=== PATIENT | male | born 1945 | race Caucasian/White ===

== ENCOUNTER 2017-01-07 10:09 | Emergency (ER) | payer MEDICARE ==
[~2017-01-07] VITALS: Ht 175.3 cm; Wt 76.8 kg
[~2017-01-07 10:09] MED LIST: ALPR0.25 PO; ASPI81TA28 PO; CARV6.25 PO; NTRGSL/4 UT; OMEG10007 PO; PANT40TA PO; PRAV20TA PO
[2017-01-07 10:15] VITALS: TEMP 36.8; Ht 175.3 cm; Wt 76.8 kg
[2017-01-07 10:24] VITALS: O2SAT 96
[2017-01-07 10:40] LABS: MEAN CELL VOLUME 88.1 fL (80-100); MEAN CORPUSCULAR HEMOGLOBIN 31.4 pg (25-34); MEAN CORPUSCULAR HGB CONC 35.6 g/dl (32-36); MEAN PLATELET VOLUME 8.6 fL (7.4-10.4); PLATELET COUNT 254 K/uL (130-400); RED BLOOD COUNT 5.45 M/uL (4.7-6.1); WHITE BLOOD COUNT 10.25 K/uL (4.8-10.8)
--- NOTE | 2017-01-07 10:45 | DIAGNOSTIC IMAGING REPORT ---
SINGLE VIEW CHEST CLINICAL HISTORY: Atypical chest pain. FINDINGS: An AP, portable, upright chest radiograph is compared to study dated 03/07/2014. The cardiomediastinal silhouette is unremarkable. There is mild atherosclerotic calcification of the thoracic aorta. Emphysema and chronic interstitial thickening is similar to previous. No airspace consolidation, pleural effusion, or pneumothorax is seen. Apical scarring is observed. The skeletal structures are osteopenic. The bony thorax is grossly intact. A benign-appearing sclerotic lesion in the left proximal humerus is only partially visualized and likely unchanged from 2014. IMPRESSION: Emphysematous change with no active disease in the chest. Electronically signed by: Omi Kiran M.D. 01/07/2017 10:44 AM Dictated Date/Time: 01/07/2017 10:42 AM
[2017-01-07 10:49] LABS: PARTIAL THROMBOPLASTIN RATIO 1.1
[2017-01-07 11:02] LABS: BUN/CREATININE RATIO 13.7 (10-20); CALCIUM 8.5 mg/dl (8.5-10.1); CREATININE 0.93 mg/dl (0.60-1.40); POTASSIUM 4.4 mmol/L (3.5-5.1)
[2017-01-07 11:07] LABS: ALB/GLOB RATIO 1.1 (0.9-2); CKMB/CK RATIO 0.8 (0-3.0)
[2017-01-07 12:09] VITALS: BP 141/72; PULSE 57; O2SAT 97
--- NOTE | 2017-01-07 12:52 | EMERGENCY ROOM VISIT NOTE ---
History Report prepared by Stefan: Denita Graf Under the Supervision of: Dr. Jerilyn Whyte D.O. First contact with patient: 10:56 Chief Complaint: CHEST PAIN Stated Complaint: CHEST PAIN,ARM PAIN Nursing Triage Summary: L upper chest pain since late last night, radiating to Lue, lasted all night waxing and waning, pt states this am pain radiates down to L fingers, c/o diaphoresis last night, hx stents in the past History of Present Illness The patient is a 71 year old male who presents to the Emergency Room with complaints of resolved left sided chest pain starting this morning. Around 11 pm last night, the patient started having left arm pain radiating to the left hand. This morning, the patient awoke from sleep due to the onset of chest pain and worsened left arm pain. He describes the chest pain to be a burning pain. The patient states that his chest pain has now resolved. He took a baby aspirin this morning with relief. He currently only complains of a dull pain in his left arm. He has a history of cardiac disease. He had a stent placed on 12/22/05 in circumflex and another stent placed on 12/13/11 in RCA. His last stress test was about 6 months ago which was normal. The patient is a former smoker. The patient denies fevers, chills, shortness of breath, abdominal pain, or any other complaints. Source of History: patient Onset: this morning Position: chest (left) Quality: burning Timing: resolved Modifying Factors (Relieving): other (baby aspirin with relief) Associated Symptoms: No SOB, No abdominal pain, No chills, No fevers Review of Systems See HPI for pertinent positives & negatives. A total of 10 systems reviewed and were otherwise negative. Past Medical & Surgical Medical Problems: (1) Benign hypertension (2) Esophageal Reflux (3) Hypercholesterolemia (4) Percutaneous transluminal coronary angioplasty Family History Patient reports no known family medical history. Social History Smoking Status: Former Smoker Alcohol Use: none Marital Status: Housing Status: lives with family Current/Historical Medications Scheduled Aspirin (Aspirin Ec), 81 MG PO DAILY Carvedilol (Coreg), 6.25 MG PO BID Fish Oil ([place]-3), 1 CAP PO DAILY Nitroglycerin (Nitrostat), 0.4 MG UT PRN Pantoprazole (Protonix), 40 MG PO DAILY Pravastatin (Pravachol ), 20 MG PO DAILY Scheduled PRN Alprazolam (Xanax), 0.25 MG PO DAILY PRN for Anxiety Allergies Coded Allergies: Vancomycin (Verified Allergy, Intermediate, RASH, 01/07/17) Physical Exam Vital Signs Date Time Temp Pulse Resp B/P Pulse Ox O2 Delivery O2 Flow Rate FiO2 01/07/17 12:09 57 18 141/72 97 01/07/17 11:02 59 17 131/86 96 Room Air 01/07/17 10:31 64 01/07/17 10:24 60 145/90 96 Room Air 01/07/17 10:24 96 Room Air 01/07/17 10:20 95 Room Air 01/07/17 10:15 95 Room Air 01/07/17 10:15 36.8 64 18 159/101 95 Room Air Physical Exam HEENT: Head - normocephalic and atraumatic Pupils are equal, round, and reactive to light. Extraocular eye muscles are intact, and sclera are anicteric. Nose - moist nasal mucosa without discharge. Mouth - moist buccal mucosa. Oropharynx is nonerythematous and there is no tonsillar exudate or edema noted. Neck: Supple; no JVD, nuchal rigidity, cervical lymphadenopathy. Heart: Regular rate and rhythm. There is a normal S1 and S2 with no murmurs, clicks, or gallops appreciated. Lungs: Clear to auscultation bilaterally with no wheezes, rales, or rhonchi. Abdomen: Soft, completely nontender, nondistended, with good bowel sounds. There are no palpable pulsatile masses or hepatosplenomegaly. There is no guarding, rigidity, or rebound noted. Extremities: No evidence of cyanosis, clubbing, or edema. There are easily palpable peripheral pulses. Skin: warm and dry with good turgor and no rashes. Medical Decision & Procedures ER Provider Diagnostic Interpretation: X-ray results as stated below per interpretation by me and the radiologist: SINGLE VIEW CHEST CLINICAL HISTORY: Atypical chest pain. FINDINGS: An AP, portable, upright chest radiograph is compared to study dated 03/07/2014. The cardiomediastinal silhouette is unremarkable. There is mild atherosclerotic calcification of the thoracic aorta. Emphysema and chronic interstitial thickening is similar to previous. No airspace consolidation, pleural effusion, or pneumothorax is seen. Apical scarring is observed. The skeletal structures are osteopenic. The bony thorax is grossly intact. A benign-appearing sclerotic lesion in the left proximal humerus is only partially visualized and likely unchanged from 2013. IMPRESSION: Emphysematous change with no active disease in the chest. Electronically signed by: Omi Kiran M.D. 01/07/2017 10:44 AM Dictated Date/Time: 01/07/2017 10:42 AM Laboratory Results 01/07/17 10:20 01/07/17 10:20 Test 01/07/17 10:20 01/07/17 10:24 Red Blood Count 5.45 M/uL (4.7-6.1) Mean Corpuscular Volume 88.1 fL (80-100) Mean Corpuscular Hemoglobin 31.4 pg (25-34) Mean Corpuscular Hemoglobin Concent 35.6 g/dl (32-36) RDW Standard Deviation 44.3 fL (36.4-46.3) RDW Coefficient of Variation 13.8 % (11.5-14.5) Mean Platelet Volume 8.6 fL (7.4-10.4) Prothrombin Time 11.0 SECONDS (9.0-12.0) Prothromb Time International Ratio 1.0 (0.9-1.1) Activated Partial Thromboplast Time 28.0 SECONDS (21.0-31.0) Partial Thromboplastin Ratio 1.1 Anion Gap 7.0 mmol/L (3-11) Est Creatinine Clear Calc Drug Dose 73.9 ml/min Estimated GFR () 96.1 Estimated GFR (Non- 82.9 BUN/Creatinine Ratio 13.7 (10-20) Calcium Level 8.5 mg/dl (8.5-10.1) Total Bilirubin 0.9 mg/dl (0.2-1) Aspartate Amino Transf (AST/SGOT) 20 U/L (15-37) Alanine Aminotransferase (ALT/SGPT) 29 U/L (12-78) Alkaline Phosphatase 63 U/L (45-117) Total Creatine Kinase 83 U/L (39-308) Creatine Kinase MB 0.7 ng/ml (0.5-3.6) Creatine Kinase MB Ratio 0.8 (0-3.0) Total Protein 7.0 gm/dl (6.4-8.2) Albumin 3.7 gm/dl (3.4-5.0) Globulin 3.3 gm/dl (2.5-4.0) Albumin/Globulin Ratio 1.1 (0.9-2) Bedside Troponin I 0.000 ng/ml (0-0.045) Laboratory results per my review. ECG Indication: chest pain Rate (beats per minute): 62 Rhythm: normal sinus Findings: no acute ischemic change, no ectopy Comparison ECG Date: September 12, 2013 Change: PVCs have now resolved otherwise no change when compared to September 12, 2013. ED Course 1056: Past medical records reviewed. The patient was evaluated in room A11B. A complete history and physical exam was performed. A 12-lead EKG was obtained as described above. An IV lock was initiated and labs were drawn as above. 1128: I discussed the patient's case with Dr. Trammell, manager eligibility with [facility]. He reviewed the cath report. In 2011, the patient's stented circumflex was patent. The patient's RCA was 80% blocked and a stent was placed. The patient's LAD was patent. He confirmed that the patient had a stress test 6 months ago which was normal. He felt comfortable with him being discharged and following up with him next week. 1157: Upon reevaluation, the patient is resting comfortably. I discussed findings and results with the patient. I also discussed Dr. Trammell's recommendations. He verbalized agreement of the treatment plan. He was discharged home. Medical Decision This is a 71 year old male who presents to the Emergency Room with a chief complaint of chest pain. Differential diagnosis includes but is not limited to cardiac ischemia, GERD, pleurisy, cervical radiculopathy. His labs showed normal white count, normal H&H, normal renal function and LFTs, negative cardiac enzymes, normal coags, and normal glucose. The patient was symptom-free at the time of discharge. He has negative cardiac enzymes and a normal EKG after having discomfort in his left arm and chest. The patient was asked to follow-up with his manager eligibility next week. He was told to return here to the emergency department symptoms worsened. Consults Time Called: 112 Consulting Physician: Dr. Trammell, manager eligibility with [facility] Returned Call: [phone] I discussed the patient's case with Dr. Trammell, manager eligibility with [facility]. He reviewed the cath report. In 2012, the patient's circumflex was patent. The patient's RCA was 80% blocked and a stent was placed. The patient's LAD was patent. He confirmed that the patient had a stress test 6 months ago which was normal. He felt comfortable with being discharged and following up with him next week. Impression Primary Impression: Atypical chest pain Scribe Attestation The scribe's documentation has been prepared under my direction and personally reviewed by me in its entirety. I confirm that the note above accurately reflects all work, treatment, procedures, and medical decision making performed by me. Departure Information Dispostion Home / Self-Care Referrals Idris Ontiveros M.D. (PCP) Forms HOME CARE DOCUMENTATION FORM, IMPORTANT VISIT INFORMATION Patient Instructions ED Chest Pain Atypical Unkn Cause, My [facility] Additional Instructions No strenuous activity. Follow up with Dr. Trammell next week Return to the ER if symptoms worsen.
== END 2017-01-07 12:11 | disposition home or self-care (01) ==
LOC: C.EDB 10:10 → C.EDA 12:11
DX: R07.89 Other chest pain (principal); I10 Essential (primary) hypertension; K21.9 Gastro-esophageal reflux disease without esophagitis; E78.00 Pure hypercholesterolemia, unspecified; Z87.891 Personal history of nicotine dependence; Z79.82 Long term (current) use of aspirin; Z79.899 Other long term (current) drug therapy

== ENCOUNTER → 2017-02-21 | Outpatient (CLI) | payer MEDICARE ==
--- NOTE | 2017-02-21 12:12 | DIAGNOSTIC IMAGING REPORT ---
CHEST 2 VIEWS ROUTINE CLINICAL HISTORY: ABNORMAL NUCLEAR STRESS TEST chest pain COMPARISON STUDY: 01/07/2017 FINDINGS: The bones soft tissues and hemidiaphragms are normal. The cardiomediastinal silhouette is normal. The lungs are clear. The pulmonary vasculature is normal. IMPRESSION: Negative chest. Electronically signed by: Chalino Harrison M.D. 02/21/2017 12:11 PM Dictated Date/Time: 02/21/2017 12:08 PM
--- NOTE | 2017-02-21 12:29 | DIAGNOSTIC IMAGING REPORT ---
KUB CLINICAL HISTORY: Ureteral stone COMPARISON STUDY: 10/03/2015 FINDINGS: There is no pathologic bowel dilatation. No urinary tract calculi are visualized on conventional radiographic imaging IMPRESSION: Unremarkable supine abdomen Electronically signed by: Nathen Bahena M.D. 02/21/2017 12:28 PM Dictated Date/Time: 02/21/2017 12:27 PM
[2017-02-21 13:32] LABS: PARTIAL THROMBOPLASTIN RATIO 1.1; PROTHROMBIN TIME (PATIENT) 11.2 SECONDS (9.0-12.0)
[2017-02-21 13:37] LABS: BASO % 0.9 %; BASO ABS # 0.08 K/uL (0-0.2); COMPLETE YES; EOS % 2.3 %; HEMATOCRIT 45.8 % (42-52); IG% 0.2 %; LYMPH % 36.7 %; LYMPH ABS # 3.09 K/uL (1.2-3.4); MEAN CORPUSCULAR HEMOGLOBIN 30.3 pg (25-34); MEAN CORPUSCULAR HGB CONC 33.6 g/dl (32-36); MEAN PLATELET VOLUME 8.7 fL (7.4-10.4); MONO % 7.6 %; NEUT % 52.3 %; PLATELET COUNT 264 K/uL (130-400); RED BLOOD COUNT 5.09 M/uL (4.7-6.1); WHITE BLOOD COUNT 8.43 K/uL (4.8-10.8)
[2017-02-21 13:46] LABS: BLOOD UREA NITROGEN 13 mg/dl (7-18); BUN/CREATININE RATIO 17.6 (10-20); CARBON DIOXIDE 25 mmol/L (21-32); CHLORIDE 109 mmol/L (98-107); CREATININE 0.75 mg/dl (0.60-1.40); GLUCOSE 102 mg/dl (70-99); POTASSIUM 4.3 mmol/L (3.5-5.1); SODIUM 143 mmol/L (136-145)
[2017-02-21 13:53] LABS: BLOOD UREA NITROGEN 12 mg/dl (7-18); BUN/CREATININE RATIO 15.6 (10-20); CREATININE 0.79 mg/dl (0.60-1.40)
[2017-02-21 13:57] LABS: PROSTATE SPECIFIC ANTIGEN 0.769 ng/ml (0.000-4.000)
[2017-02-21 13:59] LABS: CALCIUM 9.2 mg/dl (8.5-10.1)
== END | disposition home or self-care (01) ==
LOC: C.RADBC 10:59
PROVIDERS: ATTEND Urology
DX: N20.1 Calculus of ureter (principal); R94.39 Abnormal result of other cardiovascular function study; I25.119 Atherosclerotic heart disease of native coronary artery with unspecified angina pectoris; R06.02 Shortness of breath; Z12.5 Encounter for screening for malignant neoplasm of prostate; R93.8 Abnormal findings on diagnostic imaging of other specified body structures

== ENCOUNTER → 2018-02-13 | Outpatient (CLI) | payer MEDICARE ==
[2018-02-13 13:35] LABS: BASO % 1.1 %; BASO ABS # 0.09 K/uL (0-0.2); EOS % 4.4 %; EOS ABS # 0.37 K/uL (0-0.5); HEMATOCRIT 48.1 % (42-52); HEMOGLOBIN 16.5 g/dL (14.0-18.0); IG# 0.04 K/uL (0.00-0.02); LYMPH % 33.1 %; LYMPH ABS # 2.76 K/uL (1.2-3.4); MEAN CELL VOLUME 89.4 fL (80-100); MEAN CORPUSCULAR HEMOGLOBIN 30.7 pg (25-34); MEAN CORPUSCULAR HGB CONC 34.3 g/dl (32-36); MEAN PLATELET VOLUME 8.8 fL (7.4-10.4); MONO % 8.5 %; MONO ABS # 0.71 K/uL (0.11-0.59); NEUT % 52.4 %; NEUT ABS # 4.38 K/uL (1.4-6.5); PLATELET COUNT 260 K/uL (130-400); RED CELL DISTRIBUTION WIDTH SD 45.7 fL (36.4-46.3); WHITE BLOOD COUNT 8.35 K/uL (4.8-10.8)
[2018-02-13 14:00] LABS: ALBUMIN 3.6 gm/dl (3.4-5.0); ALT/SGPT 28 U/L (12-78); AST/SGOT 22 U/L (15-37); BLOOD UREA NITROGEN 13 mg/dl (7-18); CALCIUM 8.6 mg/dl (8.5-10.1); CARBON DIOXIDE 29 mmol/L (21-32); CHOLESTEROL 123 mg/dl (0-200); CREATININE 0.93 mg/dl (0.60-1.40); GLUCOSE 95 mg/dl (70-99); POTASSIUM 4.4 mmol/L (3.5-5.1); SODIUM 142 mmol/L (136-145)
[2018-02-13 14:10] LABS: ALKALINE PHOSPHATASE 60 U/L (45-117); LDL CHOLESTEROL CALCULATED 50 mg/dl; TOTAL PROTEIN 7.1 gm/dl (6.4-8.2)
== END | disposition home or self-care (01) ==
LOC: C.LABPBG 10:39
PROVIDERS: ATTEND Internal Medicine Geriatric Medicine
DX: I25.10 Atherosclerotic heart disease of native coronary artery without angina pectoris (principal); G47.00 Insomnia, unspecified; F41.9 Anxiety disorder, unspecified; G25.81 Restless legs syndrome; N20.1 Calculus of ureter; R53.83 Other fatigue

== ENCOUNTER 2023-10-25 15:00 | Observation (INO) ==
--- NOTE | 2023-10-25 15:14 | ED Triage Note ---
Date of Service October 25, 2023 Provider in Triage Author: Radha Trejo History of Present Illness This patient was briefly evaluated while in triage. An abbreviated physical exam was performed. This patient is a 78-year-old Male who presents to the ED for evaluation of chest pain. with radiation into his arm and shoulder blade. Pain started about 3-4 hours ago while he was getting out of bed. Nothing makes the pain better or worse. He does have a cardiac stent. He denies any shortness of breath or vomiting. Physical Exam VITALS: Vitals are noted on the nurse's note and reviewed by myself. GENERAL: This is a 78-year-old male, in no acute distress, nondiaphoretic, well- developed well-nourished. HEART: Regular rate and rhythm without murmurs gallops or rubs. LUNGS: Clear to auscultation bilaterally without wheezes, rales or rhonchi. No retractions or accessory muscle use. NEURO: Patient was alert and oriented to person place and time. Initial orders for labs and / or imaging were placed and patient was placed in the waiting area until a bed is available. Please see further documentation for the full ED course. MDM / Impression Impression Impression: Chest pain
[2023-10-25 15:42] LABS: Basophils # (auto) 0.12 K/uL (0.00-0.20); Basophils % (auto) 1.2 %; Hematocrit (blood only) 48.6 % (42.0-52.0); Hemoglobin 16.7 g/dl (14.0-18.0); Immature Granulocytes # (auto) 0.07 K/uL (0.01-0.20); Immature Granulocytes % (auto) 0.7 %; Lymphocytes # (auto) 2.21 K/uL (1.20-3.40); Lymphocytes % (auto) 22.3 %; Mean Corpuscular Hemoglobin 30.5 pg (25.0-34.0); Mean Corpuscular Hgb Conc 34.4 g/dL (32.0-36.0); Mean Corpuscular Volume 88.7 fL (80.0-100.0); Mean Platelet Volume 8.3 fL (9.4-12.4); Monocytes # (auto) 0.75 K/uL (0.11-0.59); Monocytes % (auto) 7.6 %; Neutrophils # (auto) 6.35 K/uL (1.40-6.50); Neutrophils % (auto) 64.2 %; Platelet Count 281 K/uL (130-400); RDW Coefficient of Variation 13.2 % (11.5-14.5); RDW Standard Deviation 42.8 fL (36.4-46.3); Red Blood Count 5.48 M/uL (4.70-6.10)
[2023-10-25 15:55] LABS: Alanine Aminotransferase 14 U/L (7-52); Albumin Globulin Ratio 1.4 (0.9-2); Albumin Level 4.3 gm/dl (3.4-5.0); Alkaline Phosphatase 64 U/L (34-104); Anion Gap 6 (3-11); Aspartate Aminotransferase 19 U/L (13-39); BUN Creatinine Ratio 17.2 (10-20); Bilirubin,Total 0.6 mg/dl (0.2-1.0); Blood Urea Nitrogen 15 mg/dl (6-23); Calcium 9.3 mg/dl (8.6-10.3); Carbon Dioxide 29 mmol/L (21-32); Chloride 105 mmol/L (98-107); Est GFR (African American) 96.5 ml/min; Est GFR (Non-African American) 83.2 ml/min; Glucose 123 mg/dl (70-99(Fasting)); Potassium 4.3 mmol/L (3.5-5.1); Sodium 140 mmol/L (136-145); Total Protein 7.3 gm/dl (6.0-8.3)
[2023-10-25 16:02] LABS: Troponin I High Sensitivity 5.9 pg/ml (0-20)
--- NOTE | 2023-10-25 16:08 | XRay Report ---
XR chest 1V portable CLINICAL HISTORY: Chest pain, nonspecific. COMPARISON STUDY: Chest CT March 16, 2022. Chest radiograph February 16, 2023. FINDINGS: Right shoulder arthroplasty is incidentally noted. There is no pneumothorax or pleural effu polo. There is no consolidation to suggest pneumonia. There is no evidence for pulmonary edema. Cardi omediastinal silhouette is normal. IMPRESSION: No acute cardiopulmonary findings. ACT 112: Negative or not required by law. Electronically signed by: Srini Corey M.D. 10/25/2023 4:07 PM
[2023-10-25] MEDS ORDERED: ASPIRIN 81 MG CHEW PO STA (18:11)
--- NOTE | 2023-10-25 18:19 | Emergency Department Note ---
History of Present Illness General Chief complaint: Chest Pain Stated complaint: CHEST PAIN, LT ARM/SHOULDER ACHES Time Seen by Provider: 10/25/23 18:14 Source: patient, RN notes reviewed and old records reviewed (09/26/23-cardiology office visit for follow-up) Mode of arrival: ambulatory Limitations: no limitations History of Present Illness Maximum Pain Intensity: 4 This patient is 78-year-old male who comes in after having left-sided chest pain which started around 10:00 is in his left arm and shoulder blade it is dull but occasionally gets sharper ache. He takes baby aspirin today but is not taking it yet denies shortness of breath there is somewhat pleuritic when he takes a deep breath he says no fall or trauma slight nausea no blood or melena stool no headache neck pain or stiffness. Has history of stents but has been a long time is not sure if this feels like his previous cardiac disease or not. He is on no blood thinners. No history of PE. No pain or swelling his legs. No GI symptoms. Home Medications Medication Instructions Recorded Confirmed Type acetaminophen 500 mg tablet 500 mg PO Q6H PRN Pain 01/06/20 10/25/23 History (Tylenol Extra Strength) carvedilol 3.125 mg tablet 3.125 mg PO BID 01/06/20 10/25/23 History aspirin 81 mg tablet,delayed 81 mg PO PM 01/29/21 10/25/23 History release cholecalciferol (vitamin D3) 50 50 mcg PO QAM 01/29/21 10/25/23 History mcg (2,000 unit) tablet (Vitamin D3) ferrous sulfate 325 mg (65 mg 325 mg PO Q OTHER DAY 02/08/23 10/25/23 History iron) tablet Oxygen Home #1 ea 02/23/23 09/28/23 Rx atorvastatin 40 mg tablet 40 mg PO QPM #90 tabs 03/22/23 10/25/23 Rx pantoprazole 40 mg tablet,delayed 40 mg PO BID #180 tabs 07/22/23 10/25/23 Rx release galcanezumab-gnlm 300 mg/3 mL (100 300 mg subcut MONTHLY 08/15/23 10/25/23 History mg/mL x 3) subcutaneous syringe (Emgality) nitroglycerin 0.4 mg sublingual 0.4 mg sublingual Q5M PRN chest 08/15/23 10/25/23 Rx tablet pain #30 tabs alprazolam 0.25 mg tablet 0.25 mg PO DAILY PRN Anxiety 10/25/23 10/25/23 History amlodipine 2.5 mg tablet 2.5 mg PO QPM 10/25/23 10/25/23 History Allergies Allergy/AdvReac Type Severity Reaction Status Date / Time sumatriptan [From Imitrex] Allergy Intermediate chest pain Verified 10/25/23 20:58 vancomycin Allergy Mild rash Verified 10/25/23 20:58 morphine AdvReac Intermediate vomiting Verified 10/25/23 20:58 sucralfate [From Carafate] AdvReac Intermediate myalgia Verified 10/25/23 20:58 Past Med/Surg History Medical History Ischemic cardiomyopathy Now with preserved LV systolic function (EF 55% in 04/2021) Occipital neuralgia Cluster headache syndrome Lamictal for management, follows with pain management and neuro CAD (coronary artery disease) S/p cardiac stents (LCX- 2005, RCA- 2011) Residual 60-70% proximal LAD stenosis per cardio records FOLLOWS WITH DR. VOSS History of kidney stones Anxiety Esophageal reflux controlled, stable, denies any issues laying flat History of gastric ulcer noted per records/patient denies Hypercholesterolemia Restless legs syndrome HTN (hypertension) well controlled, stable Surgical History Status post replacement of right shoulder joint 10/2021 History of esophagogastroduodenoscopy (EGD) History of tooth extraction History of cataract surgery BILAT History of heart artery stent > [facility] History of tonsillectomy S/P rotator cuff repair (11/29/19) R shoulder arthrsocopy, rotator cuff repair History of cardiac cath SEVERAL > 2 STENTS TOTAL FROM S/P cystoscopy with ureteral stent placement 09/2011 placement, 10/2011 removal stent Hx of colonoscopy Family History Mother , 61 Cancer Sister Heart disease Pacemaker Cancer metastatic at age 65 Father , 55 Coronary heart disease Myocardial infarction Brother Coronary heart disease Hx of CABG, Onset Age: 58 Family history of diabetes mellitus Denies family history of Ovarian cancer Prostate cancer Breast cancer Colorectal cancer Social History Smoking Status: Former smoker Tobacco Type: Cigarettes Second Hand Exposure: No; Do You Dip or Chew Tobacco: No; Hx Alcohol Use: No Hx Substance Use: No Preferred Language: Yakut Communication Ability: Effective Visual Impairment: No Limitations Hearing Ability: Normal Pulverizer Feeder Required: No Beliefs That Will Affect Care: None marital status: Current Living Situation: Spouse current occupational status: retired Feels Safe at Home: Yes Childhood Exposure to Second-Hand Smoke: No Diet: regular Diet Comment: regular caffeine: Yes (coffee) during the past year weight has: remained stable Dental Care, Regularly: Yes Physical Activity Frequency: Daily Seatbelt Use: always Sunscreen Use: Yes Assistive Devices: Glasses Review of Systems A total of 10 systems reviewed and were otherwise negative Physical Exam Vital Signs Vital Signs - 24 hr 10/25/23 15:11 10/25/23 20:13 10/25/23 20:14 Temperature 36.5 C Temperature Source Temporal Artery Scan Pulse Rate 72 62 Pulse Rate [Apical] 64 Pulse Rhythm Regular Pulse Strength Normal Respiratory Rate 20 20 Respiratory Effort / Characteristics Non-Labored Spontaneous Non-Labored Spontaneous Respiratory Depth Normal Normal Respiratory Pattern Regular Regular Blood Pressure 169/93 H Blood Pressure [Left Arm] 178/96 H Blood Pressure Mean 118 Blood Pressure Mean [Left Arm] 123 Blood Pressure Position Sitting Blood Pressure Position [Left Arm] Sitting Pulse Oximetry 96 99 Pulse Oximetry [Right Hand] Oxygen Delivery Method Room Air Room Air Oxygen Delivery Method [Right Hand] Sepsis Recent Fever Within 48 Hours No Sepsis New/Unexplained Change in Mental Status No Sepsis Action Taken by Nursing No Action Required 10/25/23 21:00 10/25/23 21:00 10/25/23 21:00 Temperature Temperature Source Pulse Rate Pulse Rate [Apical] 60 Pulse Rhythm Pulse Strength Respiratory Rate 18 Respiratory Effort / Characteristics Respiratory Depth Respiratory Pattern Blood Pressure Blood Pressure [Left Arm] 159/101 H Blood Pressure Mean Blood Pressure Mean [Left Arm] 120 Blood Pressure Position Blood Pressure Position [Left Arm] Pulse Oximetry 97 97 Pulse Oximetry [Right Hand] 93 Oxygen Delivery Method Room Air Room Air Oxygen Delivery Method [Right Hand] Room Air Sepsis Recent Fever Within 48 Hours Sepsis New/Unexplained Change in Mental Status Sepsis Action Taken by Nursing General: Well developed well nourished older male who appears in no acute distress, breathing comfortably on room air. Normal speech HEENT: Normal cephalic atraumatic. Pupils are equal round and reactive to light. Extraocular movements are intact. Oropharynx is pink with moist mucous membranes. No swelling of the mouth lips or tongue. Neck: Supple with a midline trachea. No meningeal signs or stiffness, no JVD or bruits. No Stridor. Chest: Clear to auscultation bilaterally. No wheezes or rhonchi. No increased work of breathing. Heart: Regular rate and rhythm without murmurs or gallops. Abdomen: Soft nontender, nondistended without rebound guarding or rigidity. Extremities: No cyanosis clubbing or edema. No calf tenderness or assymetry Spine/Back. Non tender to palpation. No CVA tenderness Skin: Good turgor without rashes. Neurologic exam: Cranial nerves two through 12 are intact. Motor and sensation are intact and symmetrical throughout. Course Administered Medications Discontinued Medications Aspirin (Aspirin 81 Mg Chew) 324 mg PO NOW STA Stop: 10/25/23 18:12 Last Admin: 10/25/23 18:39 Dose: 324 mg Documented By: MT Medical Decision Making Differential Diagnosis Acute coronary syndrome, arrhythmia, PE, pneumothorax, musculoskeletal, GERD, anxiety, aortic Medical Records Attestation: I reviewed the patient's medical records. Home Medications Current Medication List: was personally reviewed by me Laboratory Data Attestation: I reviewed the patient's lab results. 10/25/23 15:19 10/25/23 15:19 Lab Results 10/25/23 10/25/23 Range/Units 15:19 18:46 WBC 9.90 (4.8-10.8) K/ul RBC 5.48 (4.70-6.10) M/uL Hgb 16.7 (14.0-18.0) g/dl Hct 48.6 (42.0-52.0) % MCV 88.7 (80.0-100.0) fL MCH 30.5 (25.0-34.0) pg MCHC 34.4 (32.0-36.0) g/dL RDW Std Deviation 42.8 (36.4-46.3) fL RDW Coeff of Mraiela 13.2 (11.5-14.5) % Plt Count 281 (130-400) K/uL MPV 8.3 L (9.4-12.4) fL Immature Gran % (Auto) 0.7 % Neut % (Auto) 64.2 % Lymph % (Auto) 22.3 % Bryan % (Auto) 7.6 % Eos % (Auto) 4.0 % Baso % (Auto) 1.2 % Neut # (Auto) 6.35 (1.40-6.50) K/uL Lymph # (Auto) 2.21 (1.20-3.40) K/uL Bryan # (Auto) 0.75 H (0.11-0.59) K/uL Eos # (Auto) 0.40 (0.00-0.50) K/uL Baso # (Auto) 0.12 (0.00-0.20) K/uL Immature Gran # (Auto) 0.07 (0.01-0.20) K/uL D-Dimer 320 (0-500) ug/L FEU Sodium 140 (136-145) mmol/L Potassium 4.3 (3.5-5.1) mmol/L Chloride 105 (98-107) mmol/L Carbon Dioxide 29 (21-32) mmol/L Anion Gap 6 (3-11) BUN 15 (6-23) mg/dl Creatinine 0.87 (0.6-1.4) mg/dl Est Cr Clr Drug Dosing Not Reportable Est GFR ( Amer) 96.5 ml/min Est GFR (Non-Af Amer) 83.2 ml/min BUN/Creatinine Ratio 17.2 (10-20) Glucose 123 H (70-99(Fasting)) mg/dl Calcium 9.3 (8.6-10.3) mg/dl Total Bilirubin 0.6 (0.2-1.0) mg/dl AST 19 (13-39) U/L ALT 14 (7-52) U/L Alkaline Phosphatase 64 (34-104) U/L Troponin I High Sens 5.9 5.9 (0-20) pg/ml Total Protein 7.3 (6.0-8.3) gm/dl Albumin 4.3 (3.4-5.0) gm/dl Globulin 3.0 (2.5-4.0) gm/dl Albumin/Globulin Ratio 1.4 (0.9-2) Imaging Data Attestation: I personally reviewed and interpreted this imaging study as follows: My Impression: Chest x-rayno acute infiltrate, failure, pneumothorax seen upon my evaluation Radiologist's Impression: Chest X-Ray 10/25/23 15:14 XR chest 1V portable CLINICAL HISTORY: Chest pain, nonspecific. COMPARISON STUDY: Chest CT March 16, 2022. Chest radiograph February 16, 2023. FINDINGS: Right shoulder arthroplasty is incidentally noted. There is no pneumothorax or pleural effusion. There is no consolidation to suggest pneumonia. There is no evidence for pulmonary edema. Cardiomediastinal silhouette is normal. IMPRESSION: No acute cardiopulmonary findings. ACT 112: Negative or not required by law. Electronically signed by: Srini Corey M.D. 10/25/2023 4:07 PM ECG Data Attestation: I personally reviewed and interpreted this ECG as follows: Indication: + chest pain Rate (beats per minute): 62 Rhythm: + normal sinus ECG Intervals/blocks: + Normal QRS, + Normal QT and + Normal NC ECG Novi: + Normal ECG ST segments: + Normal ST segments ECG Findings: no PACs or no PVCs Comparison ECG Date: from (07/01/21) Change: no significant change Additional Comments: EKG #2: Sinus bradycardia rate of 60, no acute ischemic changes compared EKG #1. MDM Narrative This patient is a 78-year-old male comes in with chest pain he does have a strong cardiac history I did see him in the C pod subwait at which point his initial workup was already back. He has not taken aspirin today so I did give him 324 mg chewable his symptoms are somewhat pleuritic. he is not sure if they feel like previous cardiac disease. his initial EKG shows no ischemic changes or ectopy. His initial troponin is negative as well. Chest x-ray was unremarkable he has no significant electrolyte or metabolic abnormalities. Given his history, I did order second troponin and second EKG as well as a D-dimer. He says he feels okay at present. He was further reassessed. His second troponin was negative. Second EKG also shows no acute ischemic changes or ectopy or changes compared to the first. He is feeling well at this point. I am concerned that given his significant cardiac history that he should be observed in the hospital and have further inpatient treatment and evaluation. [facility] the ER for these measures Continuous cardiac monitoring: Orders placed in EMR for continuous monitor technician: Upon my evaluation, the patient noted to be in normal sinus rhythm the rate of 60 Impression & Plan Chest pain, CAD (coronary artery disease), terminal makeup operator (current) use of antithrombotics/antiplatelets, Hypertension Discharge Plan Visit Data Chief Complaint: Chest Pain Stated Complaint: CHEST PAIN, LT ARM/SHOULDER ACHES ED Provider: Jose Luis Frank Discharge Problem: Chest pain, CAD (coronary artery disease), correction (current) use of antithrombotics/antiplatelets, Hypertension Patient Disposition: Admitted As Inpatient Discharge Instructions Interventions: ED Discharge Assessment Last Done: 10/25/23 23:26 Discharge Problem: Chest pain Qualifiers: Chest pain type: precordial pain Qualified Code(s): R07.2 - Precordial pain CAD (coronary artery disease) Qualifiers: Coronary Disease-Associated Artery/Lesion type: unspecified vessel or lesion type [place] vs. transplanted heart: [place] heart Associated angina: without angina Qualified Code(s): I25.10 - Atherosclerotic heart disease of [place] coronary artery without angina pectoris Hypertension Qualifiers: Hypertension type: unspecified Qualified Code(s): I10 - Essential (primary) hypertension
[2023-10-25 19:21] LABS: D Dimer 320 ug/L FEU (0-500)
--- NOTE | 2023-10-25 20:44 | History & Physical Report ---
Date of Service October 25, 2023 Assessment & Plan (1) Chest pain: Plan: Patient with known cardiac history s/p stent RCA and circumflex - follows with Dr. Spencer. Cardiac cath 07/2017: patent RCA and circumflex stents; 60-70% proximal LAD lesion, and a 50% distal RCA lesion. ECHO 05/2023: normal LVEF, EF of 60%, dilated right ventricle with normal systolic function, dilated left atrium, dilated right atrium, mild to moderate mitral regurgitation, moderate tricuspid regurgitation, mildly elevated pulmonary artery pressures of 37 mmHg. Reproducible chest pain on examination. Troponin negative x 2. EKG without ischemic changes. Comorbidities well controlled with LDL < 60 05/2023 and BP well controlled outpatient. Most likely musculoskeletal in nature. Patient did have previous nerve cauterization for pain - may need follow up with pain management. Will trial Voltaren gel QID. Will continue to monitor with telemetry. AM Trop ordered. Would recommend stress ECHO while inpatient continuous cardiac monitoring AM Trop Nitro as needed s/p ASA load Trial Voltaren gel Stress ECHO while inpatient (2) HTN (hypertension): Plan: Well controlled outpatient. BP acceptable at this time. Continue home amlodipine and carvedilol. (3) Esophageal reflux: Plan: Well controlled with pantoprazole 40 mg BID. Continue while inpatient (4) CAD (coronary artery disease): Plan: See above Plan Code status: full DVT ppx: SCDs FENGI: Heart Healthy Dispo: Med Surg with Tele, if becomes unstable would escalate care to PCU/Tele History of Present Illness Chief Complaint: Chest Pain Primary Care Provider: Janice Mata, 78 y/o male with a PMHx of CAD s/p stents x2 RCA and circumflex presented with chest pain. Per chart review of [facility] records patient was seen by Dr. Spencer's office 09/26/23. Lipids and BP at goal at that time. ECHO 05/2023: normal LVEF, EF of 60%, dilated right ventricle with normal systolic function, dilated left atrium, dilated right atrium, mild to moderate mitral regurgitation, moderate tricuspid regurgitation, mildly elevated pulmonary artery pressures of 37 mmHg. Cardiac cath 07/2017: patent RCA and circumflex stents; 60-70% proximal LAD lesion, and a 50% distal RCA lesion. During my interview, patient is lying comfortably in bed. Reports symptoms started this morning with left pec soreness after waking from bed. He initially thought it was due to sleeping wrong. Patient began to experience intermittent sharp pains that felt deeper and some nausea, which prompted his presentation to the ED. Patient with reproducible chest pain. No SOB. No abdominal pain. No leg swelling. No change in bowel habits. No recent illnesses. In the ED Patient given ASA 324 mg x1. D-dimer negative. Trops negative x 2. EKG without signs of ischemic changes. CXR without signs of cardiomegaly. As patient is high risk for ACS admission for observation was requested. Allergies Allergy/AdvReac Type Severity Reaction Status Date / Time sumatriptan [From Imitrex] Allergy Intermediate chest pain Verified 10/25/23 20:58 vancomycin Allergy Mild rash Verified 10/25/23 20:58 morphine AdvReac Intermediate vomiting Verified 10/25/23 20:58 sucralfate [From Carafate] AdvReac Intermediate myalgia Verified 10/25/23 20:58 Home Medications Medication Instructions Recorded Confirmed Type acetaminophen 500 mg tablet 500 mg PO Q6H PRN Pain 01/06/20 10/25/23 History (Tylenol Extra Strength) carvedilol 3.125 mg tablet 3.125 mg PO BID 01/06/20 10/25/23 History aspirin 81 mg tablet,delayed 81 mg PO PM 01/29/21 10/25/23 History release cholecalciferol (vitamin D3) 50 50 mcg PO QAM 01/29/21 10/25/23 History mcg (2,000 unit) tablet (Vitamin D3) ferrous sulfate 325 mg (65 mg 325 mg PO Q OTHER DAY 02/08/23 10/25/23 History iron) tablet Oxygen Home #1 ea 02/23/23 09/28/23 Rx atorvastatin 40 mg tablet 40 mg PO QPM #90 tabs 03/22/23 10/25/23 Rx pantoprazole 40 mg tablet,delayed 40 mg PO BID #180 tabs 07/22/23 10/25/23 Rx release galcanezumab-gnlm 300 mg/3 mL (100 300 mg subcut MONTHLY 08/15/23 10/25/23 History mg/mL x 3) subcutaneous syringe (Emgality) nitroglycerin 0.4 mg sublingual 0.4 mg sublingual Q5M PRN chest 08/15/23 10/25/23 Rx tablet pain #30 tabs alprazolam 0.25 mg tablet 0.25 mg PO DAILY PRN Anxiety 10/25/23 10/25/23 History amlodipine 2.5 mg tablet 2.5 mg PO QPM 10/25/23 10/25/23 History Past Med/Surg History Medical History Ischemic cardiomyopathy Now with preserved LV systolic function (EF 55% in 04/2021) Occipital neuralgia Cluster headache syndrome Lamictal for management, follows with pain management and neuro CAD (coronary artery disease) S/p cardiac stents (LCX- 2005, RCA- 2011) Residual 60-70% proximal LAD stenosis per cardio records FOLLOWS WITH DR. SPENCER History of kidney stones Anxiety Esophageal reflux controlled, stable, denies any issues laying flat History of gastric ulcer noted per records/patient denies Hypercholesterolemia Restless legs syndrome HTN (hypertension) well controlled, stable Surgical History Status post replacement of right shoulder joint 10/2021 History of esophagogastroduodenoscopy (EGD) History of tooth extraction History of cataract surgery BILAT History of heart artery stent > [facility] History of tonsillectomy S/P rotator cuff repair (11/29/19) R shoulder arthrsocopy, rotator cuff repair History of cardiac cath SEVERAL > 2 STENTS TOTAL FROM S/P cystoscopy with ureteral stent placement 09/2011 placement, 10/2011 removal stent Hx of colonoscopy Family History Mother , 61 Cancer Sister Heart disease Pacemaker Cancer metastatic at age 65 Father , 55 Coronary heart disease Myocardial infarction Brother Coronary heart disease Hx of CABG, Onset Age: 58 Family history of diabetes mellitus Denies family history of Ovarian cancer Prostate cancer Breast cancer Colorectal cancer Social History Smoking Status: Former smoker Tobacco Type: Cigarettes Second Hand Exposure: No; Do You Dip or Chew Tobacco: No; Hx Alcohol Use: No Hx Substance Use: No Preferred Language: Lao Communication Ability: Effective Visual Impairment: No Limitations Hearing Ability: Normal Planer Tailer Required: No Beliefs That Will Affect Care: None marital status: Current Living Situation: Spouse current occupational status: retired Feels Safe at Home: Yes Childhood Exposure to Second-Hand Smoke: No Diet: regular Diet Comment: regular caffeine: Yes (coffee) during the past year weight has: remained stable Dental Care, Regularly: Yes Physical Activity Frequency: Daily Seatbelt Use: always Sunscreen Use: Yes Assistive Devices: Glasses Review of Systems 2 Review of Systems: See HPI Physical Exam 2 Physical Exam: Gen: well appearing male in NAD, resting comfortably HEENT: AT NC MMM Resp: CTAB no wheezing no increased work of breathing CV: RRR no m/r/g clinically well perfused, no LE edema Abd: soft, non-tender MSK: no obvious deformities, reproducible left pectoralis pain without erythema, warmth, or obvious injury, ?muscle spasm Psych: appropriate mood and affect Skin: no rashes or bruising noted Results & Data Results & Data Vital Signs (Past 12 Hours) Vital Signs Temp Pulse Pulse Resp BP BP Pulse Ox 10/25/23 20:14 64 20 178/96 H 99 10/25/23 15:11 36.5 C 72 20 169/93 H 96 O2 Del Method 10/25/23 20:14 Room Air 10/25/23 15:11 Room Air Laboratory Results 10/25/23 15:19 10/25/23 15:19 Diagnostic Findings Chest X-Ray 10/25/23 15:14 FINDINGS: Right shoulder arthroplasty is incidentally noted. There is no pneumothorax or pleural effusion. There is no consolidation to suggest pneumonia. There is no evidence for pulmonary edema. Cardiomediastinal silhouette is normal. IMPRESSION: No acute cardiopulmonary findings. Supervising Physician Co-Signing Physician Notes Attending addendum: I have physically seen this patient, have supervised the medical residents activities, and agree with the H&P unless as otherwise noted. Assessment and Plan: Chest pain/CAD/history of RCA stent/history of circumflex artery stent/60 to 70% LAD lesion- As noted on last cardiac catheterization 03/[address] Harp in [place] The patient will be admitted to telemetry for serial cardiac enzymes, serial EKG's, cardiac rhythm monitoring and a 2-D echocardiogram with Dopplers. Initial troponin and follow-up negative at 5.9 Continue amlodipine 2.5 mg daily, aspirin 81 mg daily, carvedilol 3.125 mg p.o. twice daily If workup negative, he should have a stress echocardiogram prior to discharge Hyperlipidemia- Continue atorvastatin 40 mg daily Check a fasting lipid panel and hemoglobin A1c GERD- Continue pantoprazole Resident Activity Tracking Resident Involvement: Resident Care Provided Care Provided: Adult [facility] Medicine
[2023-10-25] MEDS ORDERED: carvediloL 3.125 MG TAB PO ONE (21:37)
[2023-10-25] MEDS ORDERED: amLODIPine BESYLATE 5 MG TAB PO ONE (21:37)
[2023-10-25] MEDS ORDERED: ATORVASTATIN 40 MG TAB PO ONE (21:38)
[2023-10-25] MEDS ORDERED: PANTOprazole 40 MG TAB PO ONE (21:43)
[2023-10-25] MEDS ORDERED: POLYETHYLENE (MIRALAX) 17 GM PACK PO PRN (23:25)
[2023-10-25] MEDS ORDERED: ACETAMINOPHEN 500 MG TAB PO PRN (23:25)
[2023-10-25] MEDS ORDERED: ALPRAZolam 0.25 MG TABLET PO PRN (23:25)
[2023-10-25] MEDS ORDERED: ONDANSETRON INJ 2 MG/ML 2 ML VIAL IV PRN (23:25)
[2023-10-25] MEDS ORDERED: NITROGLYCERIN SL 0.4 MG/TAB TAB SL PRN (23:25)
[2023-10-26] MEDS: PANTOprazole 40 MG TAB PO SCH ×2 (00:59→08:52)
--- NOTE | 2023-10-26 01:00 | Billing Data ---
Date of Service October 26, 2023 Coding Level of Care Code 27133 INT INP/OBS CARE
[2023-10-26 04:57] LABS: Hematocrit (blood only) 45.2 % (42.0-52.0); Hemoglobin 15.9 g/dl (14.0-18.0); Mean Corpuscular Hemoglobin 30.2 pg (25.0-34.0); Mean Corpuscular Hgb Conc 35.2 g/dL (32.0-36.0); Mean Corpuscular Volume 85.8 fL (80.0-100.0); Mean Platelet Volume 8.2 fL (9.4-12.4); Platelet Count 248 K/uL (130-400); RDW Coefficient of Variation 13.2 % (11.5-14.5); RDW Standard Deviation 41.2 fL (36.4-46.3); Red Blood Count 5.27 M/uL (4.70-6.10); White Blood Count 11.88 K/ul (4.8-10.8)
[2023-10-26 05:04] LABS: BUN Creatinine Ratio 19.2 (10-20); Calcium 8.7 mg/dl (8.6-10.3); Est GFR (African American) 103.7 ml/min; Est GFR (Non-African American) 89.5 ml/min; Potassium 3.7 mmol/L (3.5-5.1)
[2023-10-26 05:11] LABS: Troponin I High Sensitivity 6.8 pg/ml (0-20)
[2023-10-26] MEDS ORDERED: carvediloL 3.125 MG TAB PO SCH (09:00)
[2023-10-26] MEDS ORDERED: DICLOFENAC SOD 1% GEL 100 GM TUBE EXT SCH (09:00)
--- NOTE | 2023-10-26 11:01 | Electrocardiogram Report ---
Test Reason : Blood Pressure : / mmHG Vent. Rate : 062 BPM Atrial Rate : 062 BPM P-R Int : 158 ms QRS Dur : 086 ms QT Int : 404 ms P-R-T Axes : 054 064 049 degrees QTc Int : 410 ms Normal sinus rhythm Normal ECG When compared with ECG of 01-JUL-2021 10:31, No significant change was found Confirmed by Marvin Frias ([id number]) on 10/26/2023 11:01:01 AM Referred By: REFERRED SELF Confirmed By:Marvin Frias
--- NOTE | 2023-10-26 11:01 | Electrocardiogram Report ---
Test Reason : Blood Pressure : / mmHG Vent. Rate : 059 BPM Atrial Rate : 059 BPM P-R Int : 160 ms QRS Dur : 084 ms QT Int : 406 ms P-R-T Axes : 060 066 049 degrees QTc Int : 401 ms Sinus bradycardia Otherwise normal ECG When compared with ECG of 25-OCT-2023 15:17, (unconfirmed) No significant change was found Confirmed by Marvin Frias ([id number]) on 10/26/2023 11:01:24 AM Referred By: REFERRED SELF Confirmed By:Marvin Frias
--- NOTE | 2023-10-26 11:56 | Discharge Summary ---
Date of Service October 26, 2023 Admission HPI Per Admitting Provider 78 y/o male with a PMHx of CAD s/p stents x2 RCA and circumflex presented with chest pain. Per chart review of [facility] records patient was seen by Dr. Spencer's office 09/26/23. Lipids and BP at goal at that time. ECHO 05/2023: normal LVEF, EF of 60%, dilated right ventricle with normal systolic function, dilated left atrium, dilated right atrium, mild to moderate mitral regurgitation, moderate tricuspid regurgitation, mildly elevated pulmonary artery pressures of 37 mmHg. Cardiac cath 07/2017: patent RCA and circumflex stents; 60-70% proximal LAD lesion, and a 50% distal RCA lesion. During my interview, patient is lying comfortably in bed. Reports symptoms started this morning with left pec soreness after waking from bed. He initially thought it was due to sleeping wrong. Patient began to experience intermittent sharp pains that felt deeper and some nausea, which prompted his presentation to the ED. Patient with reproducible chest pain. No SOB. No abdominal pain. No leg swelling. No change in bowel habits. No recent illnesses. In the ED Patient given ASA 324 mg x1. D-dimer negative. Trops negative x 2. EKG without signs of ischemic changes. CXR without signs of cardiomegaly. As patient is high risk for ACS admission for observation was requested. Discharge Data Allergies Allergy/AdvReac Type Severity Reaction Status Date / Time sumatriptan [From Imitrex] Allergy Intermediate chest pain Verified 10/25/23 20:58 vancomycin Allergy Mild rash Verified 10/25/23 20:58 morphine AdvReac Intermediate vomiting Verified 10/25/23 20:58 sucralfate [From Carafate] AdvReac Intermediate myalgia Verified 10/25/23 20:58 Consultations 10/25/23 21:03 ED Decision to Admit Stat Hospital Course (1) Chest pain: Patient with known cardiac history s/p stent RCA and circumflex - follows with Dr. Spencer. Cardiac cath 07/2017: patent RCA and circumflex stents; 60-70% proximal LAD lesion, and a 50% distal RCA lesion. ECHO 05/2023: normal LVEF, EF of 60%, dilated right ventricle with normal systol ic function, dilated left atrium, dilated right atrium, mild to moderate mitral regurgitation, moderate tricuspid regurgitation, mildly elevated pulmonary artery pressures of 37 mmHg. Reproducible chest pain on examination. Troponin negative x 2. EKG without ischemic changes. Comorbidities well controlled with LDL < 60 05/2023 and BP well controlled outpatient. Most likely musculoskeletal in nature. Patient did have previous nerve cauterization for pain - may need follow up with pain management. Will trial Voltaren gel QID. Will continue to monitor with telemetry. AM Trop ordered. Would recommend stress ECHO while inpatient continuous cardiac monitoring AM Trop Nitro as needed s/p ASA load Trial Voltaren gel Stress ECHO while inpatient (2) HTN (hypertension): Well controlled outpatient. BP acceptable at this time. Continue home amlodipine and carvedilol. (3) Esophageal reflux: Well controlled with pantoprazole 40 mg BID. Continue while inpatient (4) CAD (coronary artery disease): See above Plan Code status: full DVT ppx: SCDs FENGI: Heart Healthy Dispo: Med Surg with Tele, if becomes unstable would escalate care to PCU/Tele Discharge Plan Discharge Items Reason For Visit: CHEST PAIN Discharge Diagnosis: chest pain Activity: Resume your previous activity Non-emergency contact: Primary Care Provider Call non-emergency contact if: you have any medication questions Follow-up/Referrals: Janice Mata DO [Primary Care Provider] - Diet: Regular Addtl Attending Provider Instructions: You have been evaluated for chest pain. Thankfully, the results you were ordered puts you in a low risk for a heart attack We also ruled out other causes of chest pain that can be life threatening. Will recommend you followup with your PCP in 1-2 weeks. Pending Studies at Discharge: No Stand-Alone Forms: [facility], Smoking Cessation Medications and DC Order Prescriptions: Continued atorvastatin 40 mg tablet 40 mg PO QPM Qty: 90 3RF pantoprazole 40 mg tablet,delayed release (DR/EC) 40 mg PO BID Qty: 180 1RF (DME) Oxygen Home Liters Per Minute See Rx Instructions .Route Qty: 1 0RF Rx Instructions: 100% oxygen for up to 25 minutes at 15L/min with a non-rebreather mask ferrous sulfate 325 mg (65 mg iron) tablet 325 mg PO Q OTHER DAY Emgality Syringe 300 mg/3 mL (100 mg/mL x 3) syringe 300 mg subcut MONTHLY Rx Instructions: TAKES USUALLY ON THE 4TH OF THE MONTH. nitroglycerin 0.4 mg tablet, sublingual 0.4 mg SL Q5M PRN (Reason: chest pain) Qty: 30 3RF Patient Comments: HAVE NEVER USED acetaminophen [Tylenol Extra Strength] 500 mg Tablet 500 mg PO Q6H PRN (Reason: Pain) carvedilol 3.125 mg tablet 3.125 mg PO BID aspirin 81 mg Tablet,Delayed Release (Dr/Ec) 81 mg PO PM cholecalciferol (vitamin D3) [Vitamin D3] 50 mcg (2,000 unit) Tablet 50 mcg PO QAM amlodipine 2.5 mg tablet 2.5 mg PO QPM alprazolam 0.25 mg tablet 0.25 mg PO DAILY PRN (Reason: Anxiety) Admission Data Admit Date/Time: 10/25/23 21:14 Attending Provider: Oli Zuñiga Admit Provider: Esperanza Yan Primary Care Provider: Janice Mata Other Providers: Oli Zuñiga Coding Diagnoses Chest pain R07.2 Chest pain type: precordial pain HTN (hypertension) I10 Esophageal reflux K21.9 CAD (coronary artery disease) I25.10 Associated angina: without angina Coronary Disease-Associated Artery/Lesion type: unspecified vessel or lesion type [place] vs. transplanted heart: [place] [facility]
--- NOTE | 2023-10-26 12:32 | XCELERA ---
[id number]
[2023-10-26] MEDS ORDERED: ATORVASTATIN 40 MG TAB PO SCH (21:00)
[2023-10-26] MEDS ORDERED: ASPIRIN 81 MG ECTAB PO SCH (21:00)
[2023-10-26] MEDS ORDERED: amLODIPine BESYLATE 5 MG TAB PO SCH (21:00)
== END 2023-10-26 13:45 | disposition home or self-care (01) ==
LOC: EDINP 15:00 → ED 15:00 → EDINP 10-26 13:28

== ENCOUNTER 2025-06-05 17:00 | Inpatient (IN) ==
--- NOTE | 2025-06-05 17:17 | Emergency Department Note ---
Impression & Plan Non-ST elevation VT (NSTEMI) Admission ED Provider Note HPI: History obtained from patient. The patient is a 79-year-old gentleman with history of paroxysmal atrial fibrillation, currently on Xarelto, history of CAD status post multiple stents, presents the emergency department today with a chief complaint of chest pain. Patient states that he had a nerve ablation performed by pain management in his thoracic spine this past . Patient states he has had pain across the upper portion of his anterior chest since that procedure. Patient states that he was evaluated yesterday in the ED, he was ultimately discharged home following his ED workup including a negative CT angiogram of the chest. Patient states that his pain seemed to worsen last night at about 10:30 PM. Patient states he was contacted today by his PCP and told that Dr. Frias of cardiology had reviewed his EKG and he should come to the emergency room to be assessed. On arrival here to the ED the patient is alert, he is hemodynamically stable, he appears to be in no acute distress. He states he does have active pain across the top of his chest. ROS: - Per HPI Differential Diagnosis: Acute coronary syndrome, unstable angina, costochondritis, pleuritis, neuropathy, aortic dissection, pulmonary embolism, amongst other potential pathologies. *Outpatient medications and allergy history reviewed. PE: General: Alert HEENT: Normocephalic, trachea midline Eyes: Extraocular eye movement is intact, no scleral erythema Pulmonary: Clear to auscultation bilaterally, no wheezing Cardio: Regular rate and rhythm GI: Abdomen is soft to palpation : No suprapubic tenderness MSK: No evidence of trauma or malformation of the extremities, no edema Skin: No evidence of rash Neuro: Alert, no focal deficits Psychiatric: Cooperative INDEPENDENT INTERPRETATIONS: manager monitoring: (As interpreted by myself): - An order was placed for continuous cardiac monitoring - Patient was noted to be in sinus rhythm with a rate of 65 EKG: (As interpreted by myself): Rate: 64 Rhythm: Normal sinus rhythm Intervals: Within normal limits ST changes: No ST elevation, T wave inversions noted in leads III and aVF Time: 1708 EKG: (As interpreted by myself): Rate: 62 Rhythm: Normal sinus rhythm Intervals: Within normal limits ST changes: No ST elevation Time: 1822 Chest x-ray: (As interpreted by myself): No acute disease Interventions provided in ED: - IV morphine, IV Zofran, aspirin, heparin drip Medical Decision Making: Shortly after the patient arrived IV was established and lab work obtained, initial EKG obtained does not show any evidence of any ST elevation VT. Patient was given IV morphine and IV Zofran with good improvement in his pain. Lab work shows an uptrending white blood cell count of 23.58 (patient was noted to be on steroids). Hemoglobin is normal, platelet count is normal, CMP does not show any evidence of any critical findings. High-sensitivity troponin did result markedly elevated at 7155. On my reevaluation following this result the patient states his pain is much improved from previous. Repeat EKG was obtained that again does not show any evidence of any ST elevation VT. Chest x-ray does not show any evidence of any widened mediastinum or acute disease otherwise. Patient did have a CT angiogram of the chest yesterday to rule out dissection that was negative. Low suspicion for aortic dissection at this point. I suspect the patient likely had an VT last night as he states he had a severe episode of chest pain at about 10:30 PM. I discussed the patient's presentation with on-call [facility] cardiology, Dr. Chris, he does recommend initiation of heparin drip at this point as well as aspirin. Routine consult for cardiology was placed and they will plan to evaluate the patient tomorrow for cardiac catheterization. I discussed this plan with the patient, he is in agreement for admission. He is chest pain-free on my reassessment. Patient was made aware to immediately notify staff if he develops any new episodes of chest pain. Patient and his at the bedside were in agreement to this plan and the patient was placed for admission in stable condition. [facility] hospitalist service was consulted for admission. I was handed an EKG by the bedside RN at approximately 1857 that showed some new ST changes with elevation in aVR and ST depressions in leads II, aVF, V4, V5, and V6. Given this with the patient's active pain a heart alert was activated at this time. Patient was evaluated at the bedside by the on-call hospitalist, Dr. Zuñiga, as well as interventional cardiology, Dr. Faust. He was transported to the cardiac catheterization lab in stable condition for further care. Consultants/Discussions held with other healthcare providers: - Interventional cardiology, Dr. Faust - Cardiology, Dr. Chris - Hospitalist, Dr. Zuñiga Disposition discussion held by myself with: - Patient and spouse at bedside * CRITICAL CARE TIME: (45) minutes - Management of acute coronary syndrome requiring heart alert to be called, time spent is bedside, interpretation of diagnostic studies including multiple EKGs, discussion with other physicians and arrangement of transfer to the cardiac catheterization lab for emergent cardiac catheterization for acute ischemic changes on EKG. Diagnosis: 1. Acute coronary syndrome 2. Elevated high-sensitivity troponin, acute 3. History of coronary artery disease status post multiple stents Disposition: Admission Chalino Hallman DO Emergency Medicine Past Med/Surg History Problem List (Updated 06/05/25 @ 18:48 by Chalino Hallman DO) Non-ST elevation VT (NSTEMI) (Acute) Leukocytosis (Acute) Upper back pain (Acute) Chest pain (Acute) Paroxysmal atrial fibrillation Atrial fibrillation with controlled ventricular rate Chronic cluster headache Mitral regurgitation Stented coronary artery Myofascial pain syndrome of thoracic spine Cervical myofascial strain Occipital neuralgia of right side Allergic rhinitis Intercostal neuralgia Hypertension (Acute) 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 VOSS Anxiety Esophageal reflux controlled, stable, denies any issues laying flat Hypercholesterolemia Restless legs syndrome Medical History History of cardioversion Restless leg syndrome On anticoagulant therapy HTN (hypertension) Hypercholesterolemia Esophageal reflux Cervical myofascial strain CAD (coronary artery disease) Allergic rhinitis History of chest pain New onset atrial fibrillation Ischemic cardiomyopathy Occipital neuralgia Cluster headache syndrome History of kidney stones History of gastric ulcer Surgical History History of surgery Status post reverse arthroplasty of right shoulder (~10/2021) History of esophagogastroduodenoscopy (EGD) History of tooth extraction History of cataract surgery History of heart artery stent History of tonsillectomy S/P rotator cuff repair (11/29/19) History of cardiac cath S/P cystoscopy with ureteral stent placement Hx of colonoscopy Family History Mother Cancer Sister Heart disease Pacemaker Cancer Father Coronary heart disease Myocardial infarction Brother Family history of diabetes mellitus Coronary heart disease Hx of CABG, Onset Age: 58 Other No family history of adverse response to anesthesia Denies family history of Ovarian cancer Prostate cancer Breast cancer Colorectal cancer Social History Smoking Status: Never smoker Tobacco Type: Cigarettes Age Started Using Tobacco: 18; Age Quit Using Tobacco: 41; packs per day: 1; Second Hand Exposure: No; Do You Dip or Chew Tobacco: No (quit 30yrs ago); Hx Alcohol Use: No Hx Substance Use: No Preferred Language: Barbadian Communication Ability: Effective Visual Impairment: No Limitations Hearing Ability: Normal Surveillance Sensor Officer Required: No Beliefs That Will Affect Care: None marital status: Current Living Situation: Spouse current occupational status: retired Feels Safe at Home: Yes Childhood Exposure to Second-Hand Smoke: No Diet: regular Diet Comment: regular caffeine: Yes (coffee) during the past year weight has: remained stable Dental Care, Regularly: No Physical Activity Frequency: Daily Seatbelt Use: always Sunscreen Use: Yes Assistive Devices: Glasses Allergies Allergies Allergy/AdvReac Type Severity Reaction Status Date / Time sumatriptan [From Imitrex] Allergy Intermediate chest pain Verified 05/31/25 13:11 vancomycin Allergy Mild rash Verified 05/31/25 13:11 morphine AdvReac Intermediate vomiting Verified 05/31/25 13:11 sucralfate [From Carafate] AdvReac Intermediate myalgia Verified 05/31/25 13:11 Home Meds Home Medications Medication Instructions Recorded Confirmed acetaminophen 500 mg tablet 500 mg PO Q6H PRN Pain 01/06/20 06/05/25 (Tylenol Extra Strength) carvedilol 3.125 mg tablet 3.125 mg PO BID 01/06/20 06/05/25 aspirin 81 mg tablet,delayed 81 mg PO PM 01/29/21 06/05/25 release cholecalciferol (vitamin D3) 50 50 mcg PO QAM 01/29/21 06/05/25 mcg (2,000 unit) tablet (Vitamin D3) amlodipine 2.5 mg tablet 2.5 mg PO QPM 10/25/23 06/05/25 diclofenac sodium 3 % topical gel 1 applic topical BID PRN Pain 02/21/24 06/05/25 magnesium oxide 400 mg PO QAM 08/27/24 06/05/25 alprazolam 0.25 mg tablet 0.25 mg PO DAILY PRN Anxiety 06/05/25 06/05/25 rivaroxaban 20 mg tablet (Xarelto) 20 mg PO QDD 06/05/25 06/05/25 Previous Rx's Medication Instructions Recorded Oxygen Home #1 ea 02/23/23 nitroglycerin 0.4 mg sublingual 0.4 mg sublingual Q5M PRN chest 02/21/24 tablet pain #30 tabs pantoprazole 40 mg tablet,delayed 40 mg PO QPM #90 tabs 01/07/25 release atorvastatin 40 mg tablet 40 mg PO QPM #90 tabs 03/19/25 verapamil 120 mg 24 hr 120 mg PO DAILY 30 days #30 caps 04/09/25 capsule,extended release galcanezumab-gnlm 300 mg/3 mL (100 300 mg (3 mL) subcut .once a month 05/09/25 mg/mL x 3) subcutaneous syringe #3 mL (Emgality) prednisone 20 mg tablet 60 mg (3 x 20 mg) PO DAILY 4 days 06/04/25 #12 tabs Results & Data (ED) Vital Signs Vital Signs - 24 hr 06/05/25 17:01 06/05/25 17:01 06/05/25 17:07 Temperature 36.8 C Temperature Source Temporal Artery Scan Pulse Rate 66 Pulse Rate [Left] 65 Pulse Rate from SpO2 Sensor Pulse Rhythm [Left] Pulse Strength [Left] Respiratory Rate 16 15 Respiratory Effort / Characteristics Respiratory Depth Respiratory Pattern Blood Pressure 155/86 H Blood Pressure [Left Arm] 141/95 H Blood Pressure Mean 109 Blood Pressure Mean [Left Arm] 110 Blood Pressure Position [Left Arm] Pulse Oximetry 95 96 96 Oxygen Delivery Method Room Air Room Air Room Air Oxygen Flow Rate Sepsis Recent Fever Within 48 Hours No Sepsis New/Unexplained Change in Mental Status N/A Sepsis Action Taken by Nursing No Action Required 06/05/25 17:07 06/05/25 17:20 06/05/25 19:00 Temperature Temperature Source Pulse Rate 67 70 Pulse Rate [Left] Pulse Rate from SpO2 Sensor Pulse Rhythm [Left] Pulse Strength [Left] Respiratory Rate 16 Respiratory Effort / Characteristics Respiratory Depth Respiratory Pattern Blood Pressure 123/101 H Blood Pressure [Left Arm] Blood Pressure Mean 105 Blood Pressure Mean [Left Arm] Blood Pressure Position [Left Arm] Pulse Oximetry 96 Oxygen Delivery Method Room Air Oxygen Flow Rate Sepsis Recent Fever Within 48 Hours Sepsis New/Unexplained Change in Mental Status Sepsis Action Taken by Nursing 06/05/25 19:06 06/05/25 19:09 06/05/25 19:10 Temperature Temperature Source Pulse Rate 72 Pulse Rate [Left] Pulse Rate from SpO2 Sensor Pulse Rhythm [Left] Pulse Strength [Left] Respiratory Rate Respiratory Effort / Characteristics Respiratory Depth Respiratory Pattern Blood Pressure 161/89 H 146/84 H 134/67 Blood Pressure [Left Arm] Blood Pressure Mean 121 102 Blood Pressure Mean [Left Arm] Blood Pressure Position [Left Arm] Pulse Oximetry Oxygen Delivery Method Oxygen Flow Rate Sepsis Recent Fever Within 48 Hours Sepsis New/Unexplained Change in Mental Status Sepsis Action Taken by Nursing 06/05/25 19:10 06/05/25 19:15 06/05/25 19:15 Temperature Temperature Source Pulse Rate 68 70 66 Pulse Rate [Left] Pulse Rate from SpO2 Sensor 69 Pulse Rhythm [Left] Pulse Strength [Left] Respiratory Rate 18 18 19 Respiratory Effort / Characteristics Respiratory Depth Respiratory Pattern Blood Pressure 134/67 127/68 127/68 Blood Pressure [Left Arm] Blood Pressure Mean 104 87 91 Blood Pressure Mean [Left Arm] Blood Pressure Position [Left Arm] Pulse Oximetry 95 96 Oxygen Delivery Method Nasal Cannula Nasal Cannula Oxygen Flow Rate 2 2 Sepsis Recent Fever Within 48 Hours Sepsis New/Unexplained Change in Mental Status Sepsis Action Taken by Nursing 06/05/25 19:21 06/05/25 19:25 06/05/25 19:31 Temperature Temperature Source Pulse Rate 66 67 Pulse Rate [Left] 67 Pulse Rate from SpO2 Sensor Pulse Rhythm [Left] Regular Pulse Strength [Left] Normal Respiratory Rate 20 19 20 Respiratory Effort / Characteristics Non-Labored Spontaneous Respiratory Depth Normal Respiratory Pattern Regular Blood Pressure 133/77 124/77 Blood Pressure [Left Arm] 135/90 Blood Pressure Mean 98 96 Blood Pressure Mean [Left Arm] 105 Blood Pressure Position [Left Arm] Lying Pulse Oximetry 96 96 98 Oxygen Delivery Method Nasal Cannula Nasal Cannula Nasal Cannula Oxygen Flow Rate 2 2 2 Sepsis Recent Fever Within 48 Hours Sepsis New/Unexplained Change in Mental Status Sepsis Action Taken by Nursing 06/05/25 19:49 Temperature Temperature Source Pulse Rate Pulse Rate [Left] Pulse Rate from SpO2 Sensor Pulse Rhythm [Left] Pulse Strength [Left] Respiratory Rate Respiratory Effort / Characteristics Respiratory Depth Respiratory Pattern Blood Pressure Blood Pressure [Left Arm] Blood Pressure Mean Blood Pressure Mean [Left Arm] Blood Pressure Position [Left Arm] Pulse Oximetry Oxygen Delivery Method Nasal Cannula Oxygen Flow Rate 2 Sepsis Recent Fever Within 48 Hours Sepsis New/Unexplained Change in Mental Status Sepsis Action Taken by Nursing Laboratory Data 06/05/25 17:19 06/05/25 17:19 Lab Results 06/05/25 06/05/25 Range/Units 17:19 19:13 WBC 23.58 H (4.8-10.8) K/ul RBC 5.22 (4.70-6.10) M/uL Hgb 16.0 (14.0-18.0) g/dl Hct 45.4 (42.0-52.0) % MCV 87.0 (80.0-100.0) fL MCH 30.7 (25.0-34.0) pg MCHC 35.2 (32.0-36.0) g/dL RDW Std Deviation 43.2 (36.4-46.3) fL RDW Coeff of Mariela 13.6 (11.5-14.5) % Plt Count 307 (130-400) K/uL MPV 8.4 L (9.4-12.4) fL Immature Gran % (Auto) 2.3 % Neut % (Auto) 84.8 % Lymph % (Auto) 9.6 % Clay % (Auto) 3.1 % Eos % (Auto) 0.0 % Baso % (Auto) 0.2 % Neut # (Auto) 20.00 H (1.40-6.50) K/uL Lymph # (Auto) 2.26 (1.20-3.40) K/uL Clay # (Auto) 0.72 H (0.11-0.59) K/uL Eos # (Auto) 0.00 (0.00-0.50) K/uL Baso # (Auto) 0.05 (0.00-0.20) K/uL Immature Gran # (Auto) 0.55 H (0.01-0.20) K/uL PT 11.4 (9.0-12.0) Seconds INR 1.1 (0.9-1.1) APTT 26 (21-31) Seconds PTT Ratio 1.0 Sodium 138 (136-145) mmol/L Potassium 4.4 (3.5-5.1) mmol/L Chloride 105 (98-107) mmol/L Carbon Dioxide 25 (21-32) mmol/L Anion Gap 8 (3-11) BUN 27 H (6-23) mg/dl Creatinine 1.13 (0.6-1.4) mg/dl Est Cr Clr Drug Dosing Not Reportable eGFR 66.53 BUN/Creatinine Ratio 23.9 H (10-20) Glucose 140 H (70-99(Fasting)) mg/dl Calcium 9.3 (8.6-10.3) mg/dl Magnesium 2.1 (1.7-2.4) mg/dl Total Bilirubin 0.7 (0.2-1.0) mg/dl AST 51 H (13-39) U/L ALT 21 (7-52) U/L Alkaline Phosphatase 55 (34-104) U/L Troponin I High Sens 7155.2 H* D (0-20) pg/ml Total Protein 7.0 (6.0-8.3) gm/dl Albumin 4.1 (3.4-5.0) gm/dl Globulin 2.9 (2.5-4.0) gm/dl Albumin/Globulin Ratio 1.4 (0.9-2) Lipase 16 (11-82) U/L Procalcitonin 0.02 (0-0.5) ng/ml Administered Medications Heparin Sodium/Dextrose (Heparin 38998 Unit/500 Ml D5w) 25,000 units in 500 mls @ 17 mls/hr IV .Q24H [facility]; Protocol Stop: 07/05/25 18:44 Last Admin: 06/05/25 18:55 Dose: 850 units/hr, 17 mls/hr Documented By: ERIK Co-signed By: LUIGI Nitroglycerin (Nitroglycerin Sl 0.4 Mg/Tab Tab) 0.4 mg SL Q5M PRN PRN Reason: Chest Pain Stop: 07/05/25 19:05 Last Admin: 06/05/25 19:11 Dose: 0.4 mg Documented By: LUIGI Discontinued Medications Aspirin (Aspirin Chew 324 Mg) 324 mg PO NOW STA Stop: 06/05/25 18:17 Last Admin: 06/05/25 18:22 Dose: 324 mg Documented By: ERIK Heparin Sodium (Porcine) (Heparin Sod (Porcine) 1000 Unit/Ml) 4,000 units IV NOW ONE Stop: 06/05/25 19:01 Last Admin: 06/05/25 18:53 Dose: 4,000 units Documented By: ERIK Co-signed By: LUIGI Heparin Sodium/Dextrose (Heparin Iv Adult Wt-Based Low-Dose W/ Initial Bolus Protocol) 1 each IV NOW STA; Protocol Stop: 06/05/25 18:30 Last Admin: 06/05/25 19:12 Dose: Not Given Documented By: LUIGI Sodium Chloride (Nss) 1,000 mls @ 999 mls/hr IV .Q1H1M ONE Stop: 06/05/25 19:24 Last Admin: 06/05/25 18:37 Dose: 999 mls/hr Documented By: ERIK Metoprolol Tartrate (Metoprolol Tartrate 1 Mg/Ml Vial) Confirm Administered Dose 5 mg IV .STK-MED ONE Stop: 06/05/25 19:08 Last Increment: 06/05/25 19:10 Dose: 2.5 mg Documented By: LUIGI Metoprolol Tartrate (Metoprolol Tartrate 1 Mg/Ml Vial) 5 mg IV NOW STA Stop: 06/05/25 19:12 Last Admin: 06/05/25 19:12 Dose: Not Given Documented By: LUIGI Morphine Sulfate (Morphine Sulfate 4 Mg/Ml 1 Ml Carp\Vial) 4 mg IV NOW STA Stop: 06/05/25 17:24 Last Admin: 06/05/25 17:27 Dose: 4 mg Documented By: ERIK Morphine Sulfate (Morphine Sulfate 4 Mg/Ml 1 Ml Carp\Vial) 4 mg IV NOW STA Stop: 06/05/25 19:02 Last Admin: 06/05/25 19:01 Dose: 4 mg Documented By: ERIK Nitroglycerin (Nitroglycerin Sl 0.4 Mg/Tab Tab) Confirm Administered Dose 0.4 mg .ROUTE .STK-MED ONE Stop: 06/05/25 19:06 Last Admin: 06/05/25 19:07 Dose: 0.4 mg Documented By: ERIK Ondansetron HCl (Ondansetron Inj 2 Mg/Ml 2 Ml Vial) 4 mg IV NOW STA Stop: 06/05/25 17:24 Last Admin: 06/05/25 17:27 Dose: 4 mg Documented By: ERIK Imaging Data Radiologist's Impression: Chest X-Ray 06/05/25 17:07 Clinical History: Chest pain Technique: A frontal view of the chest was obtained Findings: There are no confluent pulmonary infiltrates. The heart size is at the upper limit of normal. No pleural effusion or pneumothorax is seen. There is no definite pulmonary nodule. No fracture is noted. There is a right shoulder arthroplasty. There is scoliosis Impression: No active disease Electronically signed by Reagan Gallego 06-05-2025 5:52 PM Discharge Plan Visit Data Chief Complaint: Chest Pain Stated Complaint: CHEST PAIN, SHOULDER BLADE ED Provider: Chalino Hallman Discharge Problem: Non-ST elevation VT (NSTEMI) Patient Disposition: Admitted As Inpatient Condition: Fair Discharge Instructions Interventions: ED Discharge Assessment Last Done: 06/05/25 19:49 Forms Stand Alone Forms: [facility] Prescriptions Prescriptions: No Action pantoprazole 40 mg tablet,delayed release (DR/EC) 40 mg PO QPM Qty: 90 1RF atorvastatin 40 mg tablet 40 mg PO QPM Qty: 90 3RF verapamil 120 mg capsule,ext rel. pellets 24 hr 120 mg PO DAILY 30 Days Qty: 30 2RF (DME) Oxygen Home Liters Per Minute See Rx Instructions .Route Qty: 1 0RF Rx Instructions: 100% oxygen for up to 25 minutes at 15L/min with a non-rebreather mask diclofenac sodium 3 % gel 1 applic topical BID PRN (Reason: Pain) nitroglycerin 0.4 mg tablet, sublingual 0.4 mg SL Q5M PRN (Reason: chest pain) Qty: 30 3RF Patient Comments: HAVE NEVER USED Emgality Syringe 300 mg/3 mL (100 mg/mL x 3) syringe 300 mg subcut .once a month Qty: 3 0RF acetaminophen [Tylenol Extra Strength] 500 mg Tablet 500 mg PO Q6H PRN (Reason: Pain) carvedilol 3.125 mg tablet 3.125 mg PO BID aspirin 81 mg Tablet,Delayed Release (Dr/Ec) 81 mg PO PM cholecalciferol (vitamin D3) [Vitamin D3] 50 mcg (2,000 unit) Tablet 50 mcg PO QAM amlodipine 2.5 mg tablet 2.5 mg PO QPM magnesium oxide 400 mg magnesium Tablet 400 mg PO QAM Xarelto 20 mg tablet 20 mg PO QDD Patient Comments: qpm Rx Instructions: must administer with evening meal alprazolam 0.25 mg Tablet 0.25 mg PO DAILY PRN (Reason: Anxiety) prednisone 20 mg tablet 60 mg PO DAILY 4 Days Qty: 12 0RF Referrals Referrals: Moiz Herrera CRNP [Primary Care Provider] -
[2025-06-05] MEDS: ONDANSETRON INJ 2 MG/ML 2 ML VIAL IV STA (17:27)
[2025-06-05] MEDS: MoRPHine SULFATE 4 MG/ML 1 ML CARP\\VIAL IV STA ×2 (17:27→19:01)
[2025-06-05 17:46] LABS: Hematocrit (blood only) 45.4 % (42.0-52.0); Hemoglobin 16.0 g/dl (14.0-18.0); Immature Granulocytes # (auto) 0.55 K/uL (0.01-0.20); Immature Granulocytes % (auto) 2.3 %; Mean Corpuscular Hemoglobin 30.7 pg (25.0-34.0); Mean Corpuscular Volume 87.0 fL (80.0-100.0); Platelet Count 307 K/uL (130-400); RDW Standard Deviation 43.2 fL (36.4-46.3); Red Blood Count 5.22 M/uL (4.70-6.10); White Blood Count 23.58 K/ul (4.8-10.8)
--- NOTE | 2025-06-05 17:52 | XRay Report ---
Clinical History: Chest pain Technique: A frontal view of the chest was obtained Findings: There are no confluent pulmonary infiltrates. The heart size is at the upper limit of normal. No pleural effusion or pneumothorax is seen. There is no definite pulmonary nodule. No fracture is noted. There is a right shoulder arthroplasty. There is scoliosis Impression: No active disease Electronically signed by Reagan Gallego 06-05-2025 5:52 PM
[2025-06-05 18:05] LABS: Alanine Aminotransferase 21 U/L (7-52); Albumin Globulin Ratio 1.4 (0.9-2); Alkaline Phosphatase 55 U/L (34-104); Anion Gap 8 (3-11); Bilirubin,Total 0.7 mg/dl (0.2-1.0); Blood Urea Nitrogen 27 mg/dl (6-23); Calcium 9.3 mg/dl (8.6-10.3); Carbon Dioxide 25 mmol/L (21-32); Chloride 105 mmol/L (98-107); Globulin 2.9 gm/dl (2.5-4.0); Glucose 140 mg/dl (70-99(Fasting)); Lipase 16 U/L (11-82); Potassium 4.4 mmol/L (3.5-5.1); Sodium 138 mmol/L (136-145); Total Protein 7.0 gm/dl (6.0-8.3)
[2025-06-05] MEDS: ASPIRIN CHEW 324 MG PO STA (18:22)
[2025-06-05 18:26] LABS: INR 1.1 (0.9-1.1); Prothrombin Time 11.4 Seconds (9.0-12.0)
[2025-06-05] MEDS: SODIUM CHLORIDE 0.9% 1,000 ML IV ONE (18:37)
[2025-06-05] MEDS ORDERED: HEPARIN SOD (PORCINE) 1000 UNIT/ML IV ONE (18:45)
[2025-06-05] MEDS: HEPARIN SOD (PORCINE) 1000 UNIT/ML IV ONE (18:53)
[2025-06-05] MEDS: HEPARIN 25000 UNIT/500 ML D5W 25,000 UNITS/500 ML BAG IV SCH (18:55)
[2025-06-05] MEDS: NITROGLYCERIN SL 0.4 MG/TAB TAB ONE (19:07)
[2025-06-05] MEDS: METOPROLOL TARTRATE 1 MG/ML VIAL IV ONE (19:10)
[2025-06-05] MEDS: NITROGLYCERIN SL 0.4 MG/TAB TAB SL PRN (19:11)
[2025-06-05] MEDS: Heparin IV Adult Wt-Based Low-Dose w/ INITIAL Bolus Protocol IV STA (19:12)
[2025-06-05] MEDS: METOPROLOL TARTRATE 1 MG/ML VIAL IV STA (19:12)
[2025-06-05 19:38] LABS: Partial Thromboplastin Time 26 Seconds (21-31)
--- NOTE | 2025-06-05 19:42 | Pre Anesthesia Assessment ---
Date of Service June 05, 2025 Pre Sedation Assessment Vital Signs Temp Pulse Pulse Resp BP BP Pulse Ox 06/05/25 19:31 67 20 135/90 98 06/05/25 19:25 67 19 124/77 96 06/05/25 19:21 66 20 133/77 96 06/05/25 19:15 66 19 127/68 96 06/05/25 19:15 70 18 127/68 95 06/05/25 19:10 68 18 134/67 06/05/25 19:10 72 134/67 06/05/25 19:09 146/84 H 06/05/25 19:06 161/89 H 06/05/25 19:00 123/101 H 06/05/25 17:20 70 06/05/25 17:07 67 16 96 06/05/25 17:07 98.2 F 66 15 155/86 H 96 06/05/25 17:01 65 16 141/95 H 96 06/05/25 17:01 95 O2 Del Method O2 Flow Rate 06/05/25 19:31 Nasal Cannula 2 06/05/25 19:25 Nasal Cannula 2 06/05/25 19:21 Nasal Cannula 2 06/05/25 19:15 Nasal Cannula 2 06/05/25 19:15 Nasal Cannula 2 06/05/25 19:10 06/05/25 19:10 06/05/25 19:09 06/05/25 19:06 06/05/25 19:00 06/05/25 17:20 06/05/25 17:07 Room Air 06/05/25 17:07 Room Air 06/05/25 17:01 Room Air 06/05/25 17:01 Room Air Cardiovascular + regular rate Respiratory + respiratory effort normal Pre-Sedation Airway Assessment Smoking Status: Never smoker Thyromental Distance: > or= 3.5 Finger Breadths Oral Cavity: + Dental Abnormalities Mallampati Class: II ASA: ASA3 Procedure Planning Contraindications for Sedation: none Current Medications Reviewed: Yes Notes The planned sedation has been discussed with the patient. Informed Consent was obtained. I have identified the patient, determined the appropriateness of sedation and have assessed the patient immediately prior to the procedure. All medicine(s) and interventions are by my order.
--- NOTE | 2025-06-05 19:45 | Cardiology Consultation ---
Date of Consultation June 05, 2025 Assessment & Plan (1) Non-ST elevation AL (NSTEMI): Presentation consistent with high risk ACS and recommend proceeding with urgent cardiac catheterization and possible PCI. No apparent contraindications to procedure. Discussed risks, benefits, alternatives of procedure with patient and they are willing to proceed. Further recommendations pending findings of coronary angiography. History of Present Illness History of Present Illness Mr. Iraheta is a very pleasant 79-year-old man here with acute chest pain, elevated troponin and ECG concerning for high risk ACS. Patient seen urgently in the ED after heart alert in the setting of evolving ECG changes. His primary manager document is Dr. Frias. Past cardiac history remarkable for multivessel CAD post prior stents RCA (CL 2005), circumflex (CL 2011) and reports of residual 60-70% proximal LAD symptoms. Also has a history of paroxysmal atrial fibrillation on Xarelto, dyslipidemia. Has been dealing with chest pain for the last 4 to 5 days following back injection. Chest pain worsened yesterday and presented to [facility] ED. ECG showed new inferior T wave inversions and had mild HS TropI elevation to 35. Chest pain-free in ED and discharged to home. Later in the evening developed a severe recurrent chest pain bringing him to tears. Continued to have intermittent chest pain this morning. Contacted his PCP/Dr. Frias who recommended return to ED. In ED had stuttering chest pain and HS TropI elevated to 7000. Had progressive ST depressions on ECG in 1, 2, and V4 through V6. Chest pain improved with morphine, nitrates, metoprolol. Allergies Allergy/AdvReac Type Severity Reaction Status Date / Time sumatriptan [From Imitrex] Allergy Intermediate chest pain Verified 05/31/25 13:11 vancomycin Allergy Mild rash Verified 05/31/25 13:11 morphine AdvReac Intermediate vomiting Verified 05/31/25 13:11 sucralfate [From Carafate] AdvReac Intermediate myalgia Verified 05/31/25 13:11 Home Medications Medication Instructions Recorded Confirmed Type acetaminophen 500 mg tablet 500 mg PO Q6H PRN Pain 01/06/20 06/05/25 History (Tylenol Extra Strength) carvedilol 3.125 mg tablet 3.125 mg PO BID 01/06/20 06/05/25 History aspirin 81 mg tablet,delayed 81 mg PO PM 01/29/21 06/05/25 History release cholecalciferol (vitamin D3) 50 50 mcg PO QAM 01/29/21 06/05/25 History mcg (2,000 unit) tablet (Vitamin D3) Oxygen Home #1 ea 02/23/23 06/05/25 Rx amlodipine 2.5 mg tablet 2.5 mg PO QPM 10/25/23 06/05/25 History diclofenac sodium 3 % topical gel 1 applic topical BID PRN Pain 02/21/24 06/05/25 History nitroglycerin 0.4 mg sublingual 0.4 mg sublingual Q5M PRN chest 02/21/24 06/05/25 Rx tablet pain #30 tabs magnesium oxide 400 mg PO QAM 08/27/24 06/05/25 History pantoprazole 40 mg tablet,delayed 40 mg PO QPM #90 tabs 01/07/25 06/05/25 Rx release atorvastatin 40 mg tablet 40 mg PO QPM #90 tabs 03/19/25 06/05/25 Rx verapamil 120 mg 24 hr 120 mg PO DAILY 30 days #30 caps 04/09/25 06/05/25 Rx capsule,extended release galcanezumab-gnlm 300 mg/3 mL (100 300 mg (3 mL) subcut .once a month 05/09/25 06/05/25 Rx mg/mL x 3) subcutaneous syringe #3 mL (Emgality) prednisone 20 mg tablet 60 mg (3 x 20 mg) PO DAILY 4 days 06/04/25 06/05/25 Rx #12 tabs alprazolam 0.25 mg tablet 0.25 mg PO DAILY PRN Anxiety 06/05/25 06/05/25 History rivaroxaban 20 mg tablet (Xarelto) 20 mg PO QDD 06/05/25 06/05/25 History Patient History Medical History History of cardioversion Restless leg syndrome On anticoagulant therapy HTN (hypertension) Hypercholesterolemia Esophageal reflux Cervical myofascial strain CAD (coronary artery disease) Allergic rhinitis History of chest pain New onset atrial fibrillation Ischemic cardiomyopathy Occipital neuralgia Cluster headache syndrome History of kidney stones History of gastric ulcer Surgical History History of surgery Status post reverse arthroplasty of right shoulder (~10/2021) History of esophagogastroduodenoscopy (EGD) History of tooth extraction History of cataract surgery History of heart artery stent History of tonsillectomy S/P rotator cuff repair (11/29/19) History of cardiac cath S/P cystoscopy with ureteral stent placement Hx of colonoscopy Family History Mother Cancer Sister Heart disease Pacemaker Cancer Father Coronary heart disease Myocardial infarction Brother Family history of diabetes mellitus Coronary heart disease Hx of CABG, Onset Age: 58 Other No family history of adverse response to anesthesia Denies family history of Ovarian cancer Prostate cancer Breast cancer Colorectal cancer Social History Smoking Status: Former smoker Tobacco Type: Cigarettes Age Started Using Tobacco: 18; Age Quit Using Tobacco: 41; packs per day: 1; Smoking End Date: 38 yrs ago quit; Second Hand Exposure: No; Do You Dip or Chew Tobacco: No (quit 30yrs ago); Hx Alcohol Use: No Hx Substance Use: No Preferred Language: Upper Sorbian Communication Ability: Effective Visual Impairment: No Limitations Hearing Ability: Normal Pottery Decorator Required: No Beliefs That Will Affect Care: None marital status: Current Living Situation: Spouse current occupational status: retired Other Information That Helps Us Care for You: No Feels Safe at Home: Yes Safety Concerns: Feels Safe At This Time Childhood Exposure to Second-Hand Smoke: No Diet: regular Diet Comment: regular caffeine: Yes (coffee) during the past year weight has: remained stable Dental Care, Regularly: No Physical Activity Frequency: Daily Seatbelt Use: always Sunscreen Use: Yes Assistive Devices: Glasses and Other Assistive Devices Comment: oxygen mask 15L for prn cluster headaches Review of Systems Review of Systems: All systems reviewed & are unremarkable except as noted in HPI & below Physical Exam Physical Exam: General: Comfortable HEENT: Sclerae anicteric Lungs: Clear to auscultation bilaterally Cardiac: Regular rate and rhythm, no murmurs. Vascular: 2+ radial on right Abdomen: Soft, nontender Extremities: Well perfused, no peripheral edema Neuro: Nonfocal Psych: Alert orient x3, normal affect and mood Results & Data Vital Signs (Past 12 Hours) Vital Signs Temp Pulse Pulse Resp BP BP Pulse Ox 06/05/25 19:31 67 20 135/90 98 06/05/25 19:25 67 19 124/77 96 06/05/25 19:21 66 20 133/77 96 06/05/25 19:15 66 19 127/68 96 06/05/25 19:15 70 18 127/68 95 06/05/25 19:10 68 18 134/67 06/05/25 19:10 72 134/67 06/05/25 19:09 146/84 H 06/05/25 19:06 161/89 H 06/05/25 19:00 123/101 H 06/05/25 17:20 70 06/05/25 17:07 67 16 96 06/05/25 17:07 98.2 F 66 15 155/86 H 96 06/05/25 17:01 65 16 141/95 H 96 06/05/25 17:01 95 O2 Del Method O2 Flow Rate 06/05/25 19:31 Nasal Cannula 2 06/05/25 19:25 Nasal Cannula 2 06/05/25 19:21 Nasal Cannula 2 06/05/25 19:15 Nasal Cannula 2 06/05/25 19:15 Nasal Cannula 2 06/05/25 19:10 06/05/25 19:10 06/05/25 19:09 06/05/25 19:06 06/05/25 19:00 06/05/25 17:20 06/05/25 17:07 Room Air 06/05/25 17:07 Room Air 06/05/25 17:01 Room Air 06/05/25 17:01 Room Air PG Care Time/CCT Total # of Minutes Spent Total Time Spent with Patient: Total time spent is greater than 50% in coordination of care (as documented) at patient's floor/unit and/or counseling patient: Coding Level of Care Code 33960 ER DEPT VISIT MOD LVL 4 Diagnoses Non-ST elevation AL (NSTEMI) I21.4
[2025-06-05 19:48] LABS: Magnesium 2.1 mg/dl (1.7-2.4)
[2025-06-05] MEDS: NITROGLYCERIN/D5W 100MCG/ML 20ML SYR ONE (20:15)
[2025-06-05] MEDS: IODIXANOL (VISIPAQUE) 320 MG/ML 100ML IV ONE (20:15)
[2025-06-05] MEDS: niCARdipine 2,000 MCG/20 ML SYR ONE (20:15)
--- NOTE | 2025-06-05 20:17 | History & Physical Report ---
Date of Service June 05, 2025 Assessment & Plan (1) Non-ST elevation OK (NSTEMI): (2) Paroxysmal atrial fibrillation: (3) snf (current) use of antithrombotics/antiplatelets: (4) CAD (coronary artery disease): Plan The patient is a 79-year-old male with past medical history including paroxysmal atrial fibrillation on Xarelto, atrial fibrillation VR, chronic cluster headache, history of stented coronary arteries, myofascial pain syndrome of thoracic spine, cervical myofascial pain, hypertension, trigeminal neuralgia of right side of face, CAD, GERD, hypercholesterolemia, and restless leg syndrome.The patient initially presented to the emergency department on the evening of 06/04 with chest discomfort, had a workup performed without significant abnormalities, and was discharged to home to follow-up with outpatient PCP. Patient had recurrence of severe left-sided chest pain today, presented to the emergency department, was found to have elevated troponin of 7155.2, and EKG with nonspecific ST-T changes. Heart alert was called, and patient received the following by the inpatient service: Morphine 4 mg IV x 2, nitroglycerin sublingual 0.4 mg x 2, normal saline 1 L bolus, and Lopressor 2.5 mg IV. This combination of treatment, his symptoms did completely resolve. He was then taken to the [facility] by Dr. Merlin Faust. NSTEMI/CAD/hypertension/history of multiple stents- In ED the patient received the following: Morphine sulfate 4 mg IV x 2, nitrogly cerin 0.4 mg sublingual x 2, NSS 1 L fluid bolus, Lopressor 2.5 mg IV, aspirin 324 mg, and was started on heparin drip. Patient was taken to the cardiac [facility] by Dr. Merlin Faust with the foll owing interventions 1 CL to ostial left circumflex, 1 CL to proximal LAD. There is a residual 90% stenosis in the mid RCA that will be fixed either tomorrow or the next day. Patient will resume heparin drip following removal of band per protocol Echocardiogram during cath revealed EF of 55%, with inferior lateral wall motion abnormality. Patient is admitted to the ICU for ongoing care. Continue carvedilol 3.125 mg p.o. twice daily, amlodipine 2.5 mg p.o. every afternoon. Hold verapamil and Xarelto Hyperlipidemia- Continue atorvastatin 40 mg p.o. every afternoon Check a fasting blood panel and hemoglobin A1c Anxiety- Continue alprazolam 0.25 mg p.o. changed daily to twice daily as needed GERD- Continue pantoprazole Consults to wage and salary administrator Dr. Lopez, interventionalist Dr. Faust, and cardiology Dr. Pink History of Present Illness Chief Complaint: The patient initially presented to the emergency department on the evening of 06/04 with chest discomfort, had a workup performed without significant abnormalities, and was discharged to home to follow-up with outpatient PCP. Patient had recurrence of severe left-sided chest pain today, presented to the emergency department, was found to have elevated troponin of 7155.2, and EKG with nonspecific ST-T changes. Heart alert was called, and patient received the following by the inpatient service: Morphine 4 mg IV x 2, nitroglycerin sublingual 0.4 mg x 2, normal saline 1 L bolus, and Lopressor 2.5 mg IV. This combination of treatment, his symptoms did completely resolve. He was then taken to the [facility] by Dr. Merlin Faust. Primary Care Provider: MARCOS Arauz The patient is a 79-year-old male with past medical history including paroxysmal atrial fibrillation on Xarelto, atrial fibrillation VR, chronic cluster headache, history of stented coronary arteries, myofascial pain syndrome of thoracic spine, cervical myofascial pain, hypertension, trigeminal neuralgia of right side of face, CAD, GERD, hypercholesterolemia, and restless leg syndrome.The patient initially presented to the emergency department on the evening of 06/04 with chest discomfort, had a workup performed without significant abnormalities, and was discharged to home to follow-up with outpatient PCP. Patient had recurrence of severe left-sided chest pain today, presented to the emergency department, was found to have elevated troponin of 7155.2, and EKG with nonspecific ST-T changes. Heart alert was called, and patient received the following by the inpatient service: Morphine 4 mg IV x 2, nitroglycerin sublingual 0.4 mg x 2, normal saline 1 L bolus, and Lopressor 2.5 mg IV. This combination of treatment, his symptoms did completely resolve. He was then taken to the [facility] by Dr. Merlin Faust. Allergies Allergy/AdvReac Type Severity Reaction Status Date / Time sumatriptan [From Imitrex] Allergy Intermediate chest pain Verified 05/31/25 13:11 vancomycin Allergy Mild rash Verified 05/31/25 13:11 morphine AdvReac Intermediate vomiting Verified 05/31/25 13:11 sucralfate [From Carafate] AdvReac Intermediate myalgia Verified 05/31/25 13:11 Home Medications Medication Instructions Recorded Confirmed Type acetaminophen 500 mg tablet 500 mg PO Q6H PRN Pain 01/06/20 06/05/25 History (Tylenol Extra Strength) carvedilol 3.125 mg tablet 3.125 mg PO BID 01/06/20 06/05/25 History aspirin 81 mg tablet,delayed 81 mg PO PM 01/29/21 06/05/25 History release cholecalciferol (vitamin D3) 50 50 mcg PO QAM 01/29/21 06/05/25 History mcg (2,000 unit) tablet (Vitamin D3) Oxygen Home #1 ea 02/23/23 06/05/25 Rx amlodipine 2.5 mg tablet 2.5 mg PO QPM 10/25/23 06/05/25 History diclofenac sodium 3 % topical gel 1 applic topical BID PRN Pain 02/21/24 06/05/25 History nitroglycerin 0.4 mg sublingual 0.4 mg sublingual Q5M PRN chest 02/21/24 06/05/25 Rx tablet pain #30 tabs magnesium oxide 400 mg PO QAM 08/27/24 06/05/25 History pantoprazole 40 mg tablet,delayed 40 mg PO QPM #90 tabs 01/07/25 06/05/25 Rx release atorvastatin 40 mg tablet 40 mg PO QPM #90 tabs 03/19/25 06/05/25 Rx verapamil 120 mg 24 hr 120 mg PO DAILY 30 days #30 caps 04/09/25 06/05/25 Rx capsule,extended release galcanezumab-gnlm 300 mg/3 mL (100 300 mg (3 mL) subcut .once a month 05/09/25 06/05/25 Rx mg/mL x 3) subcutaneous syringe #3 mL (Emgality) prednisone 20 mg tablet 60 mg (3 x 20 mg) PO DAILY 4 days 06/04/25 06/05/25 Rx #12 tabs alprazolam 0.25 mg tablet 0.25 mg PO DAILY PRN Anxiety 06/05/25 06/05/25 History rivaroxaban 20 mg tablet (Xarelto) 20 mg PO QDD 06/05/25 06/05/25 History Past Med/Surg History Problem List (Updated 06/05/25 @ 23:14 by Bradley Ramires MD) Non-ST elevation OK (NSTEMI) (Acute) Leukocytosis (Acute) Upper back pain (Acute) Chest pain (Acute) Paroxysmal atrial fibrillation Atrial fibrillation with controlled ventricular rate Chronic cluster headache Mitral regurgitation Stented coronary artery Myofascial pain syndrome of thoracic spine Cervical myofascial strain Occipital neuralgia of right side Allergic rhinitis Intercostal neuralgia Hypertension (Acute) snf (current) use of antithrombotics/antiplatelets (Acute) Elevated PSA Nephrolithiasis Trigeminal neuralgia of right side of face Muscle weakness of right upper extremity CAD (coronary artery disease) (Acute) S/p cardiac stents (LCX- 2005, RCA- 2011) Residual 60-70% proximal LAD stenosis per cardio records FOLLOWS WITH DR. BIPIN Ortega Esophageal reflux controlled, stable, denies any issues laying flat Hypercholesterolemia Restless legs syndrome Medical History History of cardioversion Restless leg syndrome On anticoagulant therapy HTN (hypertension) Hypercholesterolemia Esophageal reflux Cervical myofascial strain CAD (coronary artery disease) Allergic rhinitis History of chest pain New onset atrial fibrillation Ischemic cardiomyopathy Occipital neuralgia Cluster headache syndrome History of kidney stones History of gastric ulcer Surgical History History of surgery Status post reverse arthroplasty of right shoulder (~10/2021) History of esophagogastroduodenoscopy (EGD) History of tooth extraction History of cataract surgery History of heart artery stent History of tonsillectomy S/P rotator cuff repair (11/29/19) History of cardiac cath S/P cystoscopy with ureteral stent placement Hx of colonoscopy Family History Mother Cancer Sister Heart disease Pacemaker Cancer Father Coronary heart disease Myocardial infarction Brother Family history of diabetes mellitus Coronary heart disease Hx of CABG, Onset Age: 58 Other No family history of adverse response to anesthesia Denies family history of Ovarian cancer Prostate cancer Breast cancer Colorectal cancer Social History Smoking Status: Former smoker Tobacco Type: Cigarettes Age Started Using Tobacco: 18; Age Quit Using Tobacco: 41; packs per day: 1; Smoking End Date: 38 yrs ago quit; Second Hand Exposure: No; Do You Dip or Chew Tobacco: No (quit 30yrs ago); Hx Alcohol Use: No Hx Substance Use: No Preferred Language: Australian Communication Ability: Effective Visual Impairment: No Limitations Hearing Ability: Normal Electroplater Helper Required: No Beliefs That Will Affect Care: None marital status: Current Living Situation: Spouse current occupational status: retired Other Information That Helps Us Care for You: No Feels Safe at Home: Yes Safety Concerns: Feels Safe At This Time Childhood Exposure to Second-Hand Smoke: No Diet: regular Diet Comment: regular caffeine: Yes (coffee) during the past year weight has: remained stable Dental Care, Regularly: No Physical Activity Frequency: Daily Seatbelt Use: always Sunscreen Use: Yes Assistive Devices: Glasses and Other Assistive Devices Comment: oxygen mask 15L for prn cluster headaches Review of Systems Review of Systems: The patient denies palpitations, lower extremity swelling, sore throat, fevers, chills, sweats, nausea, vomiting, diarrhea , constipation, abdominal pain, pelvic pain, blood in urine or stool, dysuria, urinary frequency or urgency, lightheadedness, dizziness, headache, memory loss, loss of consciousness, rash, abnormal bruising or bleeding, imbalance, focal or generalized weakness, or night sweats. The review of systems is otherwise negative other than for that already noted above, and at least 10 systems have been reviewed. Physical Exam Physical Exam: The patient is awake, alert and oriented 3, well developed and well nourished, normocephalic and atraumatic, lying in bed and in moderately severe distress due to chest pain. HEENT--PERRL, EOMI, mucous membranes and oropharynx mildly dry. Neck--supple. No JVD. No bruits. Thyroid normal, trachea midline, no adenopathy. Heart--normal S1 and S2. No murmurs, rubs or gallops. Lungs--clear bilaterally, no respiratory distress, no accessory muscle use. Abdomen--normal bowel sounds and soft. Nontender. Nondistended, no hernias or masses, no organomegaly. Extremities--No edema. There are good distal pulses b/l. Dermatologic--normal skin turgor, normal color, no abnormal lymph nodes, no rash. Neurologic--cranial nerves II through XII grossly intact. Rheumatologic--normal range of motion. Psychiatric--normal affect. Results & Data Results & Data Vital Signs (Past 12 Hours) Vital Signs Temp Pulse Pulse Resp BP BP Pulse Ox 06/05/25 19:49 06/05/25 19:31 67 20 135/90 98 06/05/25 19:25 67 19 124/77 96 06/05/25 19:21 66 20 133/77 96 06/05/25 19:15 66 19 127/68 96 06/05/25 19:15 70 18 127/68 95 06/05/25 19:10 68 18 134/67 06/05/25 19:10 72 134/67 06/05/25 19:09 146/84 H 06/05/25 19:06 161/89 H 06/05/25 19:00 123/101 H 06/05/25 17:20 70 06/05/25 17:07 67 16 96 06/05/25 17:07 36.8 C 66 15 155/86 H 96 06/05/25 17:01 65 16 141/95 H 96 06/05/25 17:01 95 O2 Del Method O2 Flow Rate 06/05/25 19:49 Nasal Cannula 2 06/05/25 19:31 Nasal Cannula 2 06/05/25 19:25 Nasal Cannula 2 06/05/25 19:21 Nasal Cannula 2 06/05/25 19:15 Nasal Cannula 2 06/05/25 19:15 Nasal Cannula 2 06/05/25 19:10 06/05/25 19:10 06/05/25 19:09 06/05/25 19:06 06/05/25 19:00 06/05/25 17:20 06/05/25 17:07 Room Air 06/05/25 17:07 Room Air 06/05/25 17:01 Room Air 06/05/25 17:01 Room Air Laboratory Results Laboratory Results WBC 23.58 K/ul (4.8-10.8) H 06/05/25 17:19 RBC 5.22 M/uL (4.70-6.10) 06/05/25 17:19 Hgb 16.0 g/dl (14.0-18.0) 06/05/25 17:19 Hct 45.4 % (42.0-52.0) 06/05/25 17:19 MCV 87.0 fL (80.0-100.0) 06/05/25 17:19 MCH 30.7 pg (25.0-34.0) 06/05/25 17:19 MCHC 35.2 g/dL (32.0-36.0) 06/05/25 17:19 RDW Std Deviation 43.2 fL (36.4-46.3) 06/05/25 17:19 RDW Coeff of Mariela 13.6 % (11.5-14.5) 06/05/25 17:19 Plt Count 307 K/uL (130-400) 06/05/25 17:19 MPV 8.4 fL (9.4-12.4) L 06/05/25 17:19 Immature Gran % (Auto) 2.3 % 06/05/25 17:19 Neut % (Auto) 84.8 % 06/05/25 17:19 Lymph % (Auto) 9.6 % 06/05/25 17:19 [place] % (Auto) 3.1 % 06/05/25 17:19 Eos % (Auto) 0.0 % 06/05/25 17:19 Baso % (Auto) 0.2 % 06/05/25 17:19 Neut # (Auto) 20.00 K/uL (1.40-6.50) H 06/05/25 17:19 Lymph # (Auto) 2.26 K/uL (1.20-3.40) 06/05/25 17:19 [place] # (Auto) 0.72 K/uL (0.11-0.59) H 06/05/25 17:19 Eos # (Auto) 0.00 K/uL (0.00-0.50) 06/05/25 17:19 Baso # (Auto) 0.05 K/uL (0.00-0.20) 06/05/25 17:19 Immature Gran # (Auto) 0.55 K/uL (0.01-0.20) H 06/05/25 17:19 PT 11.4 Seconds (9.0-12.0) 06/05/25 17:19 INR 1.1 (0.9-1.1) 06/05/25 17:19 APTT 26 Seconds (21-31) 06/05/25 17:19 PTT Ratio 1.0 06/05/25 17:19 Activ Coag Time Kaolin 262 SECONDS (94-140) H 06/05/25 20:24 Sodium 138 mmol/L (136-145) 06/05/25 17:19 Potassium 4.4 mmol/L (3.5-5.1) 06/05/25 17:19 Chloride 105 mmol/L (98-107) 06/05/25 17:19 Carbon Dioxide 25 mmol/L (21-32) 06/05/25 17:19 Anion Gap 8 (3-11) 06/05/25 17:19 BUN 27 mg/dl (6-23) H 06/05/25 17:19 Creatinine 1.13 mg/dl (0.6-1.4) 06/05/25 17:19 Est Cr Clr Drug Dosing Not Reportable 06/05/25 17:19 eGFR 66.53 06/05/25 17:19 BUN/Creatinine Ratio 23.9 (10-20) H 06/05/25 17:19 Glucose 140 mg/dl (70-99(Fasting)) H 06/05/25 17:19 POC Glucose 147 mg/dl (70-99) H 06/05/25 21:56 Calcium 9.3 mg/dl (8.6-10.3) 06/05/25 17:19 Magnesium 2.1 mg/dl (1.7-2.4) 06/05/25 19:13 Total Bilirubin 0.7 mg/dl (0.2-1.0) 06/05/25 17:19 AST 51 U/L (13-39) H 06/05/25 17:19 ALT 21 U/L (7-52) 06/05/25 17:19 Alkaline Phosphatase 55 U/L (34-104) 06/05/25 17:19 Troponin I High Sens 8538.2 pg/ml (0-20) H* D 06/05/25 21:44 Total Protein 7.0 gm/dl (6.0-8.3) 06/05/25 17:19 Albumin 4.1 gm/dl (3.4-5.0) 06/05/25 17:19 Globulin 2.9 gm/dl (2.5-4.0) 06/05/25 17:19 Albumin/Globulin Ratio 1.4 (0.9-2) 06/05/25 17:19 Lipase 16 U/L (11-82) 06/05/25 17:19 Procalcitonin 0.02 ng/ml (0-0.5) 06/05/25 17:19 Impressions Chest X-Ray 06/05/25 17:07 Clinical History: Chest pain Technique: A frontal view of the chest was obtained Findings: There are no confluent pulmonary infiltrates. The heart size is at the upper limit of normal. No pleural effusion or pneumothorax is seen. There is no definite pulmonary nodule. No fracture is noted. There is a right shoulder arthroplasty. 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 transplanted heart: [place] heart (4) CAD (coronary artery disease) Associated angina: without angina Coronary Disease-Associated Artery/Lesion type: unspecified vessel or lesion type [place] vs. transplanted heart: [place] heart Qualified Code(s): I25.10 - Atherosclerotic heart disease of [place] coronary artery without angina pectoris
[2025-06-05] MEDS: MIDAZOLAM HCL 1 MG/ML 2ML VIAL ONE (21:13)
[2025-06-05] MEDS: HEPARIN (PORCINE) 1000 UNIT/ML 10 ML (CATH LAB USE ONLY) ONE (21:13)
[2025-06-05] MEDS: OPTIRAY 350 ONE (21:14)
[2025-06-05] MEDS ORDERED: ACETAMINOPHEN 325 MG TAB PO PRN ×2 (21:14→21:34)
[2025-06-05] MEDS: CLOPIDOGREL BISULFATE 300 MG TAB ONE (21:14)
--- NOTE | 2025-06-05 21:18 | Post Anesthesia Assessment ---
Date of Service June 05, 2025 Post Sedation Assessment Vital Signs Temp Pulse Pulse Resp BP BP Pulse Ox 06/05/25 19:49 06/05/25 19:31 67 20 135/90 98 06/05/25 19:25 67 19 124/77 96 06/05/25 19:21 66 20 133/77 96 06/05/25 19:15 66 19 127/68 96 06/05/25 19:15 70 18 127/68 95 06/05/25 19:10 68 18 134/67 06/05/25 19:10 72 134/67 06/05/25 19:09 146/84 H 06/05/25 19:06 161/89 H 06/05/25 19:00 123/101 H 06/05/25 17:20 70 06/05/25 17:07 67 16 96 06/05/25 17:07 98.2 F 66 15 155/86 H 96 06/05/25 17:01 65 16 141/95 H 96 06/05/25 17:01 95 O2 Del Method O2 Flow Rate 06/05/25 19:49 Nasal Cannula 2 06/05/25 19:31 Nasal Cannula 2 06/05/25 19:25 Nasal Cannula 2 06/05/25 19:21 Nasal Cannula 2 06/05/25 19:15 Nasal Cannula 2 06/05/25 19:15 Nasal Cannula 2 06/05/25 19:10 06/05/25 19:10 06/05/25 19:09 06/05/25 19:06 06/05/25 19:00 06/05/25 17:20 06/05/25 17:07 Room Air 06/05/25 17:07 Room Air 06/05/25 17:01 Room Air 06/05/25 17:01 Room Air Recovery Score Activity: Moves 4 extremities Respiration: Deep Breath/Cough Circulation: +/-20% PreAnes Value Consciousness: Fully Awake Oxygen Saturation: O2 needed for >90% Discharge Sedation Level of Care: Fast Track Phase II
--- NOTE | 2025-06-05 21:21 | Post Operative Brief Note ---
Cardiology Brief Post Op Date of Surgery June 05, 2025 Pre & Post Diagnosis Operation Date: 06/05/25 19:30 <No data on this case meets the specified criteria> Procedure [facility] PCI LAD, Circumflex IVUS Call Center Rn Merlin Faust MD [facility] [employer] [facility] Estimated Blood Loss 25 Findings See Below 95% ostial circumflex (likely culprit) 80% proximal LAD 90% late-mid RCA Successful PCI of ostial LCx with CL (2.75 x 18 mm Xience; NC 3.5). Successful PCI of proximal LAD with CL (2.75 x 12 Xience; NC 3.0). Anesthesia Type RN Sedation Complications none Disposition Disposition: Surgical ICU
--- NOTE | 2025-06-05 21:29 | Critical Care Consultation ---
Date of Consultation June 05, 2025 Assessment & Plan (1) Non-ST elevation VA (NSTEMI): (2) Paroxysmal atrial fibrillation: (3) Esophageal reflux: (4) Hypercholesterolemia: (5) CAD (coronary artery disease): (6) Hypertension: Plan Reason Critically Ill: 79 YOM presents for evaluation of chest pain- with NSTEMI and high risk for ACS based on symptoms, he was taken urgently to the interventional suite and received CL to Circ and LAD and noted residual CAD. Neuro - No acute needs. Hx: Cluster headaches CAM ICU: Negative - Attempt to maintain normal sleep wake cycle, frequent re-orientation to prevent ICU delirium - 100% oxygen therapy if cluster headache occurs, this has been beneficial for him at home for abortive therapy - Continue his CA channel [place] as long as hemodynamics permit Cardiac - NSTEMI, CAD, HTN, HLD - Patient presents with symptoms concerning for ACS with ECG with ST depression changes in setting of known CAD with previous stents (RCA/CIRC ~2011) - Status post CL to CIRC and LAD - TR band per protocol - Heparin infusion following TR band removal - DAPT - ASA/Plavix per cardiology - Carvedilol as hemodynamics permit - High intensity statin per cardiology - ECHO in am Eval EF - during cath reported as preserved at 55 - Appears Euvolemic at this time- continue with crystalloid overnight in setting of contrast and CKD - Lipid panel, HGBA1C in am - Trend troponin and ECG - NPO at midnight for further evaluation of timing of intervention on remaining RCA disease - PAF- currently in NSR with PACs - Hold Xarelto in light of heparin infusion - Keep K ~ 4.0 and MG ~ 2.0 - Continue BB as hemodynamics permit - HTN as above - HLD as above Respiratory - No acute need, previous smoker- quit 40 years ago - STOP BANG- 3- HTN, age, and Male GI - Nausea post procedure, Hx GERD - Post procedure nausea- will treat with Zofran PRN and sniffing of alcohol pads and provide his night PPI - NPO after midnight RENAL/LYTES - CKD - no acut needs - as above- continue with crystalloid infusion - ICU electrolyte protocol - Hx elevated PSA- no acute needs ENDO - No acute needs - ICU hyperglycemic protocol HEME - No acute needs - follow HGB levels, transfuse for active bleeding, symptoms, or HGB <8.0 in setting of ACS/CAD ID - No concern at this time for infective etiology LINES/IV ACCESS - PIV Continue use of these lines DVT PROPHYLAXIS - SCDS, Heparin infusion DISPO: ICU post CL placement. Follow hemodynamics and symptoms. I have personally spent 35 minutes of critical care time in the direct management of this patient. This is a life/limb threatening event. This includes time spent evaluating patient, direct bedside care, chart review, placing orders, interpretation of diagnostic studies, discussion with consultants, patient, and family members, as well as other required patient management activities. This time is exclusive of all separately billable procedures, and teaching time and separate from and in addition to any other critical care service time. Thank you for allowing us to participate in the care of this patient. Please refer to my attending physician's documentation for any further recommendations. History of Present Illness Reason for Consultation: ACS- s/p Requesting Physician: Merlin Faust MD Attending Physician: Oli Zuñiga MD History of Present Illness 79 YOM with medical history of: PAF (cardioversion in 2023, on Xarelto), Cluster DIOR, CAD with previous stents to (RCA + Circ), GERD, HLD, elvated PSA, HTN. Patient presents to the ER today at recommendations of his provider following previous chest pain evaluation on 06.04.25 and ECG interpretation. he reports his pain at that time as just in the upper part of his chest that would come and go and not always with activity. Patient reports that upon returning home on the he initially felt ok, but then developed chest pain 10/10 that brought tears, it was located across his chest from right to left, then went to his neck, shoulder blades and then progressed down both of his arms. This was associated with diaphoresis and dizziness. He states that this started at 2230 and lasted until about 0030. He reports taking a melatonin after that and was able to sleep through the night. He got up this morning and did his normal ritual without chest pain or trouble breathing. He got a call from his PCP to schedule an evaluation and started to have some chest pain at that time they referred him back to the ER. While in the ER he had ECG, CXR completed, and routine labs drawn to include HsCTNI. His HsCTNI was elevated at 7k and ECG was without STEMI but noted some evolutional change. He then developed severe chest pain again across his chest and into both shoulder blades. He received NTG, ASA, was placed on heparin infusion and He was taken urgently to the [facility] labor [facility] manager and received CL to circ and LAD. He is currently chest pain free, and arrives to the ICU awake, alert, not on any vasoactive medications or requiring oxygen therapy. Patient will be monitored over the night for symptomatology as well as hemodynamics. Case discussed with interventional team. Heparin infusion when TR band is removed, NPO after midnight for possible evaluation of RCA treatment in am. He will get ECHO in morning, trend troponin and ECG. CODE: FULL Allergies Allergy/AdvReac Type Severity Reaction Status Date / Time sumatriptan [From Imitrex] Allergy Intermediate chest pain Verified 05/31/25 13:11 vancomycin Allergy Mild rash Verified 05/31/25 13:11 morphine AdvReac Intermediate vomiting Verified 05/31/25 13:11 sucralfate [From Carafate] AdvReac Intermediate myalgia Verified 05/31/25 13:11 Home Medications Medication Instructions Recorded Confirmed Type acetaminophen 500 mg tablet 500 mg PO Q6H PRN Pain 01/06/20 06/05/25 History (Tylenol Extra Strength) carvedilol 3.125 mg tablet 3.125 mg PO BID 01/06/20 06/05/25 History aspirin 81 mg tablet,delayed 81 mg PO PM 01/29/21 06/05/25 History release cholecalciferol (vitamin D3) 50 50 mcg PO QAM 01/29/21 06/05/25 History mcg (2,000 unit) tablet (Vitamin D3) Oxygen Home #1 ea 02/23/23 06/05/25 Rx amlodipine 2.5 mg tablet 2.5 mg PO QPM 10/25/23 06/05/25 History diclofenac sodium 3 % topical gel 1 applic topical BID PRN Pain 02/21/24 06/05/25 History nitroglycerin 0.4 mg sublingual 0.4 mg sublingual Q5M PRN chest 02/21/24 06/05/25 Rx tablet pain #30 tabs magnesium oxide 400 mg PO QAM 08/27/24 06/05/25 History pantoprazole 40 mg tablet,delayed 40 mg PO QPM #90 tabs 01/07/25 06/05/25 Rx release atorvastatin 40 mg tablet 40 mg PO QPM #90 tabs 03/19/25 06/05/25 Rx verapamil 120 mg 24 hr 120 mg PO DAILY 30 days #30 caps 04/09/25 06/05/25 Rx capsule,extended release galcanezumab-gnlm 300 mg/3 mL (100 300 mg (3 mL) subcut .once a month 05/09/25 06/05/25 Rx mg/mL x 3) subcutaneous syringe #3 mL (Emgality) prednisone 20 mg tablet 60 mg (3 x 20 mg) PO DAILY 4 days 06/04/25 06/05/25 Rx #12 tabs alprazolam 0.25 mg tablet 0.25 mg PO DAILY PRN Anxiety 06/05/25 06/05/25 History rivaroxaban 20 mg tablet (Xarelto) 20 mg PO QDD 06/05/25 06/05/25 History Patient History Medical History History of cardioversion Restless leg syndrome On anticoagulant therapy HTN (hypertension) Hypercholesterolemia Esophageal reflux Cervical myofascial strain CAD (coronary artery disease) Allergic rhinitis History of chest pain New onset atrial fibrillation Ischemic cardiomyopathy Occipital neuralgia Cluster headache syndrome History of kidney stones History of gastric ulcer Surgical History History of surgery Status post reverse arthroplasty of right shoulder (~10/2021) History of esophagogastroduodenoscopy (EGD) History of tooth extraction History of cataract surgery History of heart artery stent History of tonsillectomy S/P rotator cuff repair (11/29/19) History of cardiac cath S/P cystoscopy with ureteral stent placement Hx of colonoscopy Family History Mother Cancer Sister Heart disease Pacemaker Cancer Father Coronary heart disease Myocardial infarction Brother Family history of diabetes mellitus Coronary heart disease Hx of CABG, Onset Age: 58 Other No family history of adverse response to anesthesia Denies family history of Ovarian cancer Prostate cancer Breast cancer Colorectal cancer Social History Smoking Status: Never smoker Tobacco Type: Cigarettes Age Started Using Tobacco: 18; Age Quit Using Tobacco: 41; packs per day: 1; Second Hand Exposure: No; Do You Dip or Chew Tobacco: No (quit 30yrs ago); Hx Alcohol Use: No Hx Substance Use: No Preferred Language: Greenlandic Communication Ability: Effective Visual Impairment: No Limitations Hearing Ability: Normal Linen Controller Required: No Beliefs That Will Affect Care: None marital status: Current Living Situation: Spouse current occupational status: retired Feels Safe at Home: Yes Childhood Exposure to Second-Hand Smoke: No Diet: regular Diet Comment: regular caffeine: Yes (coffee) during the past year weight has: remained stable Dental Care, Regularly: No Physical Activity Frequency: Daily Seatbelt Use: always Sunscreen Use: Yes Assistive Devices: Glasses Review of Systems Review of Systems: REVIEW OF SYSTEMS: Constitutional: No fever, sweats or chills Eyes: No diplopia, no worsening or blurred vision ENT: normal hearing, no trouble swallowing Respiratory: No cough, sputum, dyspnea at rest or on exertion Cardiovascular:(+) chest pain, tightness or palpitations Abdomen: No pain, nausea, vomiting, diarrhea or constipation Musculoskeletal: No joint pain, calf pain, swelling Neurologic: (+) hx cluster headaches- currently without, No weakness, numbness/tingling, or balance problems Psychiatric: No anxiety or depression Skin: No rash or itch Physical Exam Physical Exam: PHYSICAL EXAM: General: awake, alert, no apparent distress Head: Normocephalic, atraumatic ENT: PERRLA, EOMI, no pharyngeal exudate, mucous membranes moist Neuro: AAO x 3, speech clear and appropriate, strength intact bilaterally 5/5, sensation intact and equal all extremities, no pronator drift Chest: equal rise and fall of the chest, no accessory muscle use, no heaves or thirlls, Clear to auscultation, on room air, Cardiac: Regular rate and rhythm, telemetry reviewed- NSR with PACs, skin warm dry, cap refill <3 seconds, peripheral pusles +2 no JVD, no murmur, no edema, right TR band in place with pulse distal and proximal palpable, cap refill i ntact and sensation intact to right hand and fingers. GI: NABS x 4 quadrants, soft, nontender to palpation, no rebound, guarding or tenderness : Spontaneously voiding, no pain, no CVA tenderness, Psych: Normal mood and affect Skin: no rash or erythema Results & Data Results & Data Vital Signs (Past 12 Hours) Vital Signs Temp Pulse Pulse Resp BP BP Pulse Ox 06/05/25 19:49 06/05/25 19:31 67 20 135/90 98 06/05/25 19:25 67 19 124/77 96 06/05/25 19:21 66 20 133/77 96 06/05/25 19:15 66 19 127/68 96 06/05/25 19:15 70 18 127/68 95 06/05/25 19:10 68 18 134/67 06/05/25 19:10 72 134/67 06/05/25 19:09 146/84 H 06/05/25 19:06 161/89 H 06/05/25 19:00 123/101 H 06/05/25 17:20 70 06/05/25 17:07 67 16 96 06/05/25 17:07 36.8 C 66 15 155/86 H 96 06/05/25 17:01 65 16 141/95 H 96 06/05/25 17:01 95 O2 Del Method O2 Flow Rate 06/05/25 19:49 Nasal Cannula 2 06/05/25 19:31 Nasal Cannula 2 06/05/25 19:25 Nasal Cannula 2 06/05/25 19:21 Nasal Cannula 2 06/05/25 19:15 Nasal Cannula 2 06/05/25 19:15 Nasal Cannula 2 06/05/25 19:10 06/05/25 19:10 06/05/25 19:09 06/05/25 19:06 06/05/25 19:00 06/05/25 17:20 06/05/25 17:07 Room Air 06/05/25 17:07 Room Air 06/05/25 17:01 Room Air 06/05/25 17:01 Room Air Laboratory Results Abnormal lab results 06/05/25 06/05/25 06/05/25 Range/Units 17:19 19:13 20:24 WBC 23.58 H (4.8-10.8) K/ul MPV 8.4 L (9.4-12.4) fL Neut # (Auto) 20.00 H (1.40-6.50) K/uL [place] # (Auto) 0.72 H (0.11-0.59) K/uL Immature Gran # (Auto) 0.55 H (0.01-0.20) K/uL Activ Coag Time Kaolin 262 H (94-140) SECONDS BUN 27 H (6-23) mg/dl BUN/Creatinine Ratio 23.9 H (10-20) Glucose 140 H (70-99(Fasting)) mg/dl AST 51 H (13-39) U/L Troponin I High Sens 7155.2 H* D 7040.3 H* (0-20) pg/ml Diagnostic Findings Abnormal lab results 06/05/25 06/05/25 06/05/25 Range/Units 17:19 19:13 20:24 WBC 23.58 H (4.8-10.8) K/ul MPV 8.4 L (9.4-12.4) fL Neut # (Auto) 20.00 H (1.40-6.50) K/uL [place] # (Auto) 0.72 H (0.11-0.59) K/uL Immature Gran # (Auto) 0.55 H (0.01-0.20) K/uL Activ Coag Time [place] 262 H (94-140) SECONDS BUN 27 H (6-23) mg/dl BUN/Creatinine Ratio 23.9 H (10-20) Glucose 140 H (70-99(Fasting)) mg/dl AST 51 H (13-39) U/L Troponin I High Sens 7155.2 H* D 7040.3 H* (0-20) pg/ml Medications Administered Home Medications acetaminophen 500 mg tablet (Tylenol Extra Strength) 500 mg PO Q6H PRN Pain 01/06/20 [History Confirmed 06/05/25] carvedilol 3.125 mg tablet 3.125 mg PO BID 01/06/20 [History Confirmed 06/05/25] aspirin 81 mg tablet,delayed release 81 mg PO PM 01/29/21 [History Confirmed 06/05/25] cholecalciferol (vitamin D3) 50 mcg (2,000 unit) tablet (Vitamin D3) 50 mcg PO QAM 01/29/21 [History Confirmed 06/05/25] Oxygen Home #1 ea 02/23/23 [Rx Confirmed 06/05/25] amlodipine 2.5 mg tablet 2.5 mg PO QPM 10/25/23 [History Confirmed 06/05/25] diclofenac sodium 3 % topical gel 1 applic topical BID PRN Pain 02/21/24 [History Confirmed 06/05/25] nitroglycerin 0.4 mg sublingual tablet 0.4 mg sublingual Q5M PRN chest pain #30 tabs 02/21/24 [Rx Confirmed 06/05/25] magnesium oxide 400 mg PO QAM 08/27/24 [History Confirmed 06/05/25] pantoprazole 40 mg tablet,delayed release 40 mg PO QPM #90 tabs 01/07/25 [Rx Confirmed 06/05/25] atorvastatin 40 mg tablet 40 mg PO QPM #90 tabs 03/19/25 [Rx Confirmed 06/05/25] verapamil 120 mg 24 hr capsule,extended release 120 mg PO DAILY 30 days #30 caps 04/09/25 [Rx Confirmed 06/05/25] galcanezumab-gnlm 300 mg/3 mL (100 mg/mL x 3) subcutaneous syringe (Emgality) 300 mg (3 mL) subcut .once a month #3 mL 05/09/25 [Rx Confirmed 06/05/25] prednisone 20 mg tablet 60 mg (3 x 20 mg) PO DAILY 4 days #12 tabs 06/04/25 [Rx Confirmed 06/05/25] alprazolam 0.25 mg tablet 0.25 mg PO DAILY PRN Anxiety 06/05/25 [History Confirmed 06/05/25] rivaroxaban 20 mg tablet (Xarelto) 20 mg PO QDD 06/05/25 [History Confirmed 06/05/25] Active Medications Acetaminophen (Acetaminophen 325 Mg Tab) 650 mg PO Q4H PRN PRN Reason: MILD Pain (Scale 1,2,3) Stop: 07/05/25 21:13 Albuterol (Albut/Ipratrop 3mg/0.5mg Neb 3 Ml Vial) 3 ml INH Q4R PRN PRN Reason: Dyspnea Stop: 07/05/25 21:33 Alprazolam (Alprazolam 0.25 Mg Tablet) 0.25 mg PO Q12H PRN PRN Reason: Anxiety Stop: 07/05/25 21:33 Amlodipine Besylate (Amlodipine Besylate 5 Mg Tab) 2.5 mg PO QPM [facility] Stop: 07/05/25 21:33 Aspirin (Aspirin 81 Mg Ectab) 81 mg PO QAM [facility] Stop: 07/06/25 08:59 Atorvastatin Calcium (Atorvastatin 40 Mg Tab) 40 mg PO QAM [facility] Stop: 07/06/25 08:59 Carvedilol (Carvedilol 3.125 Mg Tab) 3.125 mg PO BID [facility] Stop: 07/06/25 08:59 Clopidogrel Bisulfate (Clopidogrel Bisulfate 75 Mg Tab) 75 mg PO HS [facility] Stop: 07/06/25 20:59 Heparin Sodium/Dextrose (Heparin 34080 Unit/500 Ml D5w) 25,000 units in 500 mls @ 17 mls/hr IV .Q24H [facility]; Protocol Stop: 07/05/25 18:44 Last Admin: 06/05/25 18:55 Dose: 850 units/hr, 17 mls/hr Magnesium Oxide (Magnesium Oxide 400 Mg Tab) 400 mg PO QAM [facility] Stop: 07/06/25 08:59 Miscellaneous (Icu Protocol For Hyperglycemia) 1 each N/A ACHS [facility] Stop: 06/07/25 21:33 Nitroglycerin (Nitroglycerin Sl 0.4 Mg/Tab Tab) 0.4 mg SL Q5M PRN PRN Reason: chest pain Stop: 07/05/25 21:33 Ondansetron HCl (Ondansetron Inj 2 Mg/Ml 2 Ml Vial) 4 mg IV Q6H PRN PRN Reason: NAUSEA/VOMITING Stop: 07/05/25 21:33 Last Admin: 06/05/25 21:50 Dose: 4 mg Pantoprazole Sodium (Pantoprazole 40 Mg Tab) 40 mg PO QAM [facility] Stop: 07/06/25 08:59 Pantoprazole Sodium (Pantoprazole 40 Mg Tab) 40 mg PO QPM [facility] Stop: 07/05/25 21:33 Rivaroxaban (Rivaroxaban 20 Mg Tab) 20 mg PO QDD [facility] Stop: 07/06/25 16:29 Verapamil HCl (Verapamil Hcl 120 Mg Tabcr) 120 mg PO QAM [facility] Stop: 07/06/25 08:59 Vitamin D (Cholecalciferol 25 Mcg (1000 Units) Tab) 50 mcg PO QAM [facility] Stop: 07/06/25 08:59 ECG Additional Comments: Normal sinus rhythm Marked ST abnormality, possible inferolateral subendocardial injury Abnormal ECG When compared with ECG [id number] 18:22,(unconfirmed) ST now depressed inInferior leads ST now depressed inLateral leads Coding Level of Care Code 05342 CRITICAL CARE 1ST 30-74M Diagnoses Non-ST elevation VA (NSTEMI) I21.4 Paroxysmal atrial fibrillation I48.0 Esophageal reflux K21.9 Hypercholesterolemia E78.00 CAD (coronary artery disease) I25.10 Associated angina: without angina Coronary Disease-Associated Artery/Lesion type: unspecified vessel or lesion type [place] vs. transplanted heart: [place] heart Hypertension I10 Hypertension type: unspecified (5) CAD (coronary artery disease) Associated angina: without angina Coronary Disease-Associated Artery/Lesion type: unspecified vessel or lesion type [place] vs. transplanted heart: [place] heart Qualified Code(s): I25.10 - Atherosclerotic heart disease of [place] coronary artery without angina pectoris (6) Hypertension Hypertension type: unspecified Qualified Code(s): I10 - Essential (primary) hypertension
[2025-06-05] MEDS ORDERED: [UNRECOGNIZED DRUG - OTHER] SQ SCH (21:34)
[2025-06-05] MEDS ORDERED: ATORVASTATIN 40 MG TAB PO SCH (21:34)
[2025-06-05] MEDS ORDERED: GALCANEZUMAB GNLM SQ SCH (21:34)
[2025-06-05] MEDS ORDERED: ALBUT/IPRATROP 3MG/0.5MG NEB 3 ML VIAL INH PRN (21:34)
[2025-06-05] MEDS ORDERED: NITROGLYCERIN SL 0.4 MG/TAB TAB SL PRN (21:34)
[2025-06-05] MEDS ORDERED: ASPIRIN 81 MG ECTAB PO SCH (21:34)
[2025-06-05] MEDS ORDERED: ONDANSETRON INJ 2 MG/ML 2 ML VIAL IV PRN (21:38)
[2025-06-05] MEDS: ONDANSETRON INJ 2 MG/ML 2 ML VIAL IV PRN (21:50)
--- NOTE | 2025-06-05 23:15 | Cardiac Catheterization ---
[facility] Data: Strip Mill Operator Cardiac Status Clinical evaluation leading to the procedure CAD Presenation: Non STEMI Anginal Classification: CCS IV Diagnostic Physicians Name: Merlin Faust MD Closure Device Recommendations: PCI without planned CABG Cardiac Cath Procedure Full Procedure Date June 05, 2025 Pre-Procedure Diagnosis Pre-Procedure Diagnosis: Non STEMI AUC Score AUC Score: 8 Post-Procedure Diagnosis Post-Procedure Diagnosis: Severe CAD, Successful PCI and Normal Intracardiac Pressures Procedure(s) Performed Procedure(s) Performed: Coronary Angiography, Left Heart Cath, Drug Eluting Stent and IVUS Sales Clerk Food Merlin Faust MD Sample Display Preparer(s) Sara Estimated Blood Loss Estimated Blood Loss: 25 Medication(s) Medication(s): Clopidogrel, Fentanyl, Heparin, Lidocaine 1%, Nicardipine, Nitroglycerin and Versed Summary of Findings Indication: High risk NSTEMI Access: 6 Fr slender right radial artery Catheters: Gordon, EBU 3.5 guide Findings: LM -normal caliber, calcified, luminal irregularities LAD -medium caliber, calcified, 80% proximal stenosis at takeoff of small D1. 20-30% mid segment disease. Distal vessel without significant disease and wraps around apex. Medium D2 30% ostial. Medium D3 without significant disease. Circumflex -medium caliber, 95% ostial/proximal stenosis, mid segment stent widely patent, 4050% distal stenosis prior to left PLB. RCA -dominant, medium caliber, mid segment stent widely patent with 90% latemid stenosis after stent. Distal vessel without significant disease. LVEDP -12 -- PCI -- Antithrombotic therapy: Heparin, clopidogrel Procedure: Left main cannulated with EBU 3.5 guide Pre-procedure flow COLTON 3 Functional Support Analyst 50 wire passed across lesion into distal circumflex/PLB Prowater wire placed across proximal stenosis into distal vessel Ostial/proximal circumflex lesion predilated with 2.5 compliant balloon Dilated lesion stented with 2.75 x 18 mm Xience drug-eluting stent Stent post-dilated with 3.5 noncompliant balloon IC vasodilators administered for spasm Post procedure COLTON 3 flow, stent well expanded with minimal residual stenosis. Proximal LAD dilated with 2.5 balloon Vance IVUS catheter placed to mid LAD. Pullback revealed eccentric mid segment mild calcified plaque. Severe, calcified stenosis at takeoff of D1 with mild to moderate residual ostial LAD/distal left main disease. Proximal LAD stented with single CL (2.75 x 12 mm Xience) extending across D1 ending before takeoff of D2. Stent postdilated with 3.0 NC. Post procedure COLTON 3 flow, stent well expanded with minimal residual stenosis. Arterial Closure: TR band Summary: 1. Severe multivessel coronary artery disease - 95% ostial/proximal circumflex (likely culprit). Mid circumflex stent patent. 40-50% distal circumflex 80% proximal LAD 90% latemid RCA stenosis after widely patent mid stent 2. Normal intracardiac filling pressure 3. Successful PCI of ostial/proximal circumflex with single drug-eluting stent (2.75 x 18 mm Xience; postdilated with 3.5 NC). 4. Successful PCI of proximal LAD with single drug-eluting stent (2.75 x 12 mm Xience; postdilated with 3.0 NC). Recommendations: To ICU for continued monitoring Loaded with clopidogrel 600 mg in Strip Mill Operator Resume heparin infusion after TR band removed this evening Trend troponin until peak, echocardiogram in a.m. Plan on triple therapy while hospitalized, long-term dual therapy with Xarelto, clopidogrel Restart home beta-preston, add ARB as BP allows Continue statin, and ASCVD risk factor modification Plan on staged PCI of latemid RCA at some point during this hospitalization. Hemodynamics Rest Ao:: 103/61/81 Final Ao: 105/62/81 LV: 125/12 Recommendations Recommendations: PCI without planned CABG Specimens Specimens: None Radiation Exposure (mGy) 2686 Contrast (mls) 130 Anesthesia Moderate 5695-1683 Procedural Complication(s) None Disposition ICU I attest to the content of the Intraoperative Record and any orders documented therein. Any exceptions are noted below. [facility] [place] Cath Procedure Codes Cardiac Catheterization Procedure 1: Cardiovascular Cath Procedures: 81227 Coronaries and LHC (+/-LV) Therapeutic Services & Ancillary Procedure 1: Cardiovascular Tx and Anc Procedures: 05741 IV Ultrasound (Coronary or Graft) Moderate Sedation Procedure 1: Sedation/Anesthesia: 27570 Mod Sedation by the same physician;Init15 Min Child Age 5 & Up Procedure 2: Sedation/Anesthesia: 01253 Mod Sedation by the same physician; Ea [id number] Minutes Stenting Procedure 1: Cardiovascular Stent Procedures: 31694 Perc transcatheter placement of intracoronary stent(s), with ang Procedure 2: Cardiovascular Stent Procedures: 46196 Ea addl branch of a major coronary artery PG Care Time/CCT Total # of Minutes Spent Total Time Spent with Patient: Total time spent is greater than 50% in coordination of care (as documented) at patient's floor/unit and/or counseling patient:
--- NOTE | 2025-06-05 23:23 | Billing Data ---
Date of Service June 05, 2025 Coding Level of Care Code 42811 CRITICAL CARE M
[2025-06-05] MEDS: FAMOTIDINE 20MG IV PUSH 20 MG/5 ML SYR IV STA (23:24)
[2025-06-06] MEDS ORDERED: Heparin IV Adult Wt-Based Low-Dose *NO* INITIAL Bolus Protocol IV STA (00:33)
[2025-06-06] MEDS: HEPARIN 25000 UNIT/500 ML D5W 25,000 UNITS/500 ML BAG IV SCH (00:56)
[2025-06-06 04:46] LABS: Alanine Aminotransferase 17.0 U/L (7-52); Albumin Globulin Ratio 1.4 (0.9-2); Alkaline Phosphatase 48.0 U/L (34-104); Anion Gap 5.0 (3-11); Bilirubin,Total 0.6 mg/dl (0.2-1.0); Blood Urea Nitrogen 25.0 mg/dl (6-23); Calcium 8.5 mg/dl (8.6-10.3); Carbon Dioxide 24.0 mmol/L (21-32); Chloride 108.0 mmol/L (98-107); Cholesterol 135.0 mg/dl (0-200); Creatinine Clr Calc Pharmacy 67.6 ml/min; Globulin 2.5 gm/dl (2.5-4.0); Glucose 135.0 mg/dl (70-99(Fasting)); HDL Cholesterol 59.0 mg/dl; Magnesium 2.1 mg/dl (1.7-2.4); Potassium 4.4 mmol/L (3.5-5.1); Sodium 137.0 mmol/L (136-145); Total Protein 6.1 gm/dl (6.0-8.3); Triglycerides 68.0 mg/dl (0-150)
[2025-06-06 04:56] LABS: INR 1.1 (0.9-1.1); Prothrombin Time 12.3 Seconds (9.0-12.0)
[2025-06-06 05:06] LABS: Hematocrit (blood only) 43.6 % (42.0-52.0); Hemoglobin 14.8 g/dl (14.0-18.0); Immature Granulocytes # (auto) 0.45 K/uL (0.01-0.20); Immature Granulocytes % (auto) 1.9 %; Mean Corpuscular Hemoglobin 30.0 pg (25.0-34.0); Mean Corpuscular Volume 88.3 fL (80.0-100.0); Platelet Count 250 K/uL (130-400); RDW Standard Deviation 45.0 fL (36.4-46.3); Red Blood Count 4.94 M/uL (4.70-6.10); White Blood Count 24.03 K/ul (4.8-10.8)
[2025-06-06] MEDS: ICU ELECTROLYTE REPLACEMENT PROTOCOL SCH (05:54)
[2025-06-06 06:34] LABS: ANTI-Xa, UFH(UnfractionatedHep 1.28 IU/ml (0.3-0.7)
[2025-06-06 06:36] LABS: Partial Thromboplastin Time 114 Seconds (21-31)
--- NOTE | 2025-06-06 06:53 | Critical Care Progress Note ---
Date of Service June 06, 2025 Assessment & Plan (1) Paroxysmal atrial fibrillation: (2) CAD (coronary artery disease): (3) Type [address] elevation: (4) Leukocytosis: Plan Kaden is a 79-year-old male with PMH of paroxysmal atrial fibrillation on Xar elto, atrial fibrillation VR, chronic cluster headache, history of stented coronary arteries, myofascial pain syndrome of thoracic spine, cervical myofascial pain, hypertension, trigeminal neuralgia of right side of face, CAD, GERD, hypercholesterolemia, and restless leg syndrome. He initially presented to the emergency department on the evening of 06/04 with chest discomfort, had a workup performed without significant abnormalities, and was discharged to home to follow-up with outpatient PCP. Patient had recurrence of severe left-sided chest pain 06/05, presented to the emergency department, was found to have elevated troponin of 7155.2, and EKG with nonspecific ST-T changes. Heart alert was called, and patient received the following by the inpatient service: Morphine 4 mg IV x 2, nitroglycerin sublingual 0.4 mg x 2, normal saline 1 L bolus, and Lopressor 2.5 mg IV. This combination of treatment, his symptoms did completely resolve. He was then taken to the [facility] by Dr. Merlin Faust where he received CL x 2 at circumflex and LAD. Neuro- No acute concerns CN, sensation and gross strength remains in tact Hx of anxiety-Continue alprazolam 0.25 mg p.o. changed daily to twice daily as needed Hx of cluster Headaches- continue verapamil. Can be treated with High dose O2 at 15L for 15-20 min per pt report Cardio- S/P CL at circumflex and LAD 06/05. Pt currently asymptomatic and hemodynamically stable There is a residual 90% stenosis in the mid RCA that will be fixed either 06/06 or 06/07. Continue heparin drip, to be stopped prior to R cath Echocardiogram during cath revealed EF of 55%, with inferior lateral wall motion abnormality. Troponin has plateaued and have down trended Continue atorvastatin 40 mg p.o. every afternoon Continue carvedilol 3.125 mg p.o. BID, amlodipine 2.5 mg p.o. qd, and verapamil 120mg qam. Start aspirin 81mg qam, clopidogrel 75mg po qhs Hold Xarelto Respiratory- O2 sats are >92% on RA Will continue to monitor Supplemental O2 prn for O2 sat <90% GI- No acute concerns Continue pantoprazole 40mg BID Ondansetron prn for nausea Renal/Electrolytes- Cr is 0.90, eGFR is 87.42 Electrolytes are stable Mag replaced Will monitor with AM BMP Endo- A1c is 5.7 BSG prn No acute concerns Heme- Hbg is 14.8, hct 43.6 No acute concerns Continue to monitor with AM CBC ID- WBC is 24.03, slightly elevated from 06/05. Due to recent cath and CL placement Otherwise asymptomatic, No acute concerns for infection MSK- No acute concerns Dispo: ICU Diet: NPO awaiting procedure Code: Full DVT prophylaxis: heparin drip Admission and Anticipated Discharge Date Admission Date: June 05, 2025 Supervising Physician Co-Signing Physician Notes Dr. Maldonado was resident physician during care of patient. I separately evaluated patient for arciniega portions of the history and the exam. I was present during the critical portion of medical decision making, and I discussed the case with the resident. I generally agree with the findings and plan. Patient going for second stage of multistage PCI today. Subjective Following cardiac catheterization last night, no acute events over night. This morning, pt reports chest pain is resolved. He states he had a "couple of twitches" at his posterior left shoulder last night, but denies chest pressure/pain, left shoulder/arm pain, jaw pain, SOB, dizziness when sitting up, abdominal pain, or nausea. Pt endorses dizziness when laying flat, which is long standing. Pt also endorses frequent headaches and has history of cluster headaches for which he follows with Dr. Bain. Review of Systems Review of Systems: As per HPI Physical Exam Physical Exam: Gen: The patient is awake, alert and oriented 3, well developed and well nourished, sitting up in bed, NAD HEENT: PERRL, EOMI, MMM. Neck: Supple. No JVD.Thyroid normal, trachea midline, no adenopathy. Heart: RRR, S1 and S2. No murmurs, rubs or gallops. Lungs: CTAB, no respiratory distress, no accessory muscle use. Abdomen: Normoactive bowel sounds and soft, nontender. Nondistended, no organomegaly. Extremities:No edema. Moving all 4 extremities independently. There are good distal pulses bilaterally. Skin: normal skin turgor, normal color, no rash. Neurologic: A & O x 3, CN II through XII grossly intact. Psychiatric:normal affect. Results & Data Results & Data Vital Signs (Past 12 Hours) Vital Signs Temp Pulse Pulse Resp BP BP Pulse Ox 06/06/25 03:00 118/75 06/06/25 03:00 65 13 96 06/06/25 02:42 60 13 95 06/06/25 02:00 121/74 06/06/25 01:51 63 11 L 94 06/06/25 01:39 62 12 94 06/06/25 01:03 73 16 06/06/25 01:00 143/98 H 06/06/25 00:47 152/130 H 06/06/25 00:45 65 22 98 06/06/25 00:15 69 17 98 06/06/25 00:15 155/88 H 06/06/25 00:09 67 22 95 06/06/25 00:01 135/78 06/05/25 23:45 149/90 H 06/05/25 23:42 59 L 16 98 06/05/25 23:31 137/118 H 06/05/25 23:19 68 06/05/25 23:16 140/96 06/05/25 23:12 142/107 H 06/05/25 23:11 66 17 99 06/05/25 23:08 74 19 100 06/05/25 22:50 67 15 92 06/05/25 22:46 149/91 H 06/05/25 22:41 63 16 98 06/05/25 22:30 144/88 H 06/05/25 22:20 147/85 H 06/05/25 22:20 66 21 99 06/05/25 22:00 62 20 97 06/05/25 22:00 136/88 06/05/25 21:57 65 26 H 97 06/05/25 21:46 124/83 06/05/25 21:44 36.5 C 67 18 139/87 99 06/05/25 21:41 62 15 99 06/05/25 21:35 66 20 96 06/05/25 21:30 139/87 06/05/25 21:30 67 06/05/25 21:29 70 16 98 06/05/25 21:26 65 18 06/05/25 19:49 06/05/25 19:31 67 20 135/90 98 06/05/25 19:25 67 19 124/77 96 06/05/25 19:21 66 20 133/77 96 06/05/25 19:15 66 19 127/68 96 06/05/25 19:15 70 18 127/68 95 06/05/25 19:10 68 18 134/67 06/05/25 19:10 72 134/67 06/05/25 19:09 146/84 H 06/05/25 19:06 161/89 H 06/05/25 19:00 123/101 H O2 Del Method O2 Flow Rate 06/06/25 03:00 06/06/25 03:00 06/06/25 02:42 06/06/25 02:00 06/06/25 01:51 06/06/25 01:39 06/06/25 01:03 06/06/25 01:00 06/06/25 00:47 06/06/25 00:45 06/06/25 00:15 06/06/25 00:15 06/06/25 00:09 06/06/25 00:01 06/05/25 23:45 06/05/25 23:42 06/05/25 23:31 06/05/25 23:19 06/05/25 23:16 06/05/25 23:12 06/05/25 23:11 06/05/25 23:08 06/05/25 22:50 06/05/25 22:46 06/05/25 22:41 06/05/25 22:30 06/05/25 22:20 06/05/25 22:20 06/05/25 22:00 06/05/25 22:00 06/05/25 21:57 06/05/25 21:46 06/05/25 21:44 Room Air 06/05/25 21:41 06/05/25 21:35 06/05/25 21:30 06/05/25 21:30 06/05/25 21:29 06/05/25 21:26 06/05/25 19:49 Nasal Cannula 2 06/05/25 19:31 Nasal Cannula 2 06/05/25 19:25 Nasal Cannula 2 06/05/25 19:21 Nasal Cannula 2 06/05/25 19:15 Nasal Cannula 2 06/05/25 19:15 Nasal Cannula 2 06/05/25 19:10 06/05/25 19:10 06/05/25 19:09 06/05/25 19:06 06/05/25 19:00 Resident Activity Tracking Resident Involvement: Resident Care Provided Care Provided: Adult Hospital Medicine (2) CAD (coronary artery disease) Associated angina: without angina Coronary Disease-Associated Artery/Lesion type: unspecified vessel or lesion type [place] vs. transplanted heart: [place] heart Qualified Code(s): I25.10 - Atherosclerotic heart disease of [place] coronary artery without angina pectoris (4) Leukocytosis Leukocytosis type: unspecified Qualified Code(s): D72.829 - Elevated white blood cell count, unspecified
--- NOTE | 2025-06-06 07:37 | Hospitalist Progress Note ---
Date of Service June 06, 2025 Assessment & Plan (1) Type [address] elevation: (2) Hyperlipidemia: (3) Paroxysmal atrial fibrillation: (4) Leukocytosis: Plan In summary this is a 79-year-old male admitted for type I myocardial infarction without ST elevation who underwent PCI on the evening of 06/05 without complication #Type 1 Myocardial Infarction without STEMI // Hyperlipidemia // Hypertension // Paroxysmal atrial fibrillation Patient's initial discomfort began on 06/04, he was evaluated in the emergency department and then discharged home; subsequently on 06/05 the patient contacted the talent acquisition administrator due to persistent similar symptomatology, they referred back to the emergency department found to have significant troponin elevation concerning for myocardial infarction; association with activity; prior episodes of similar pain; associated risk factors and established comorbidities include hyperlipidemia, hypertension, paroxysmal atrial fibrillation, coronary atherosclerotic disease with previous PCI and DCS; the patient's initial EKG was without evidence of any ischemic activity; troponin trend of 4866, 8538; XAVIER score 118 - remains in ICU for close observation -Maintain continuous bus driver/monitor -Nursing to contact attending if patient develops recurrent or new anginal equivalent - with holding antiplatelets in the setting of heparin GTT and anticipated intervention on 06/06 - maintain heparin GTT per cardiology recommendations - no indication for further troponin trend at this time unless chest pain recurs or additional anginal equivalent - follow daily RFP, magnesium, CBC - interventional and diagnostic cardiology, as well as livestock sales representative consulted #Leukocytosis Noted to have an elevated white blood cell count of 22,000 on admission, subsequent measured 24,000 on 06/06; no manual differential was obtained limiting the ability to determine if this has a full leftward shift, however there is no evidence of an infectious process at this time; likely reactive in the setting of their type I myocardial infarction as discussed above; continue to follow daily CBC until down trend is noted, monitor for signs or symptoms of infectious source #Intercostal Neuralgia // 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 Chronic condition; complicates the patient's personal assessment of discomfort, determining if this is consequential of these conditions or "cardiac" pain; reviewed at bedside additional signs, symptoms, and findings that the patient can use to determine if the discomfort is primarily cardiac or noncardiac, however expressed the importance of notifying nursing staff of any significant change that could be concerning for cardiac distress as the patient would need to undergo more urgent catheterization DVT PPx: heparin gtt Admission and Anticipated Discharge Date Admission Date: June 05, 2025 Anticipated date of discharge: 06/09/25 Subjective Mr. Iraheta Is a 79-year-old male whose active medical conditions include coronary artery disease, paroxysmal atrial fibrillation, hyperlipidemia, hypertension among other chronic medical conditions who was admitted to [facility] on 06/05 due to type I myocardial infarction without ST elevation, underwent urgent PCI intervention without complication. No acute overnight events; the patient feels overall well this morning, did have a transient episode of left shoulder pain that he initially did not notify nursing staff of though resolved spontaneously. This discomfort was not worsened with movement of his left shoulder, nor reproducible with palpation. He was not exerting self at the time of its onset, nor was it associated with shortness of breath, referred pain to the jaw, anterior or posterior chest wall Review of Systems Review of Systems: Remaining review of constitutional, pulmonary, cardiovascular, gastrointestinal, genitourinary, musculoskeletal, neurologic, and integumentary systems was unremarkable except for pertinent positive and negative findings noted in the HPI above. Physical Exam Physical Exam: General: Adult male in no acute distress Vital Signs: reviewed HEENT: atraumatic, noised normocephalic; pupils equally round reactive to light; extraocular muscles intact; mucous membranes moist Neck: no notable JVD nor hepatojugular reflux Pulmonary: symmetric chest wall excursion; clear to auscultation bilaterally Cardiovascular: regular rate and rhythm without murmurs, rubs, or gallops; S1 and S2 normal; bilateral radial and posterior tibial pulse 2+; left wrist radial band in place without significant tenderness or palpable hematoma around the previous catheterization access site; no notable lower extremity edema Gastrointestinal: soft, nontender to palpation throughout all 4 quadrants Neurologic: CN II-XII grossly intact; no discernible focal weakness nor paresthesias Results & Data Results & Data Vital Signs (Past 12 Hours) Vital Signs Temp Pulse Pulse Resp BP BP Pulse Ox 06/06/25 06:30 63 22 97 06/06/25 06:00 140/83 06/06/25 06:00 61 17 97 06/06/25 05:42 63 13 95 06/06/25 05:09 58 L 13 95 06/06/25 05:00 132/82 06/06/25 04:57 62 14 96 06/06/25 04:30 59 L 16 96 08/14/25 04:00 36.7 C 60 16 95 06/06/25 03:30 61 15 96 06/06/25 03:00 118/75 06/06/25 03:00 118/75 06/06/25 03:00 65 13 96 06/06/25 02:42 60 13 95 06/06/25 02:00 121/74 06/06/25 01:51 63 11 L 94 06/06/25 01:39 62 12 94 06/06/25 01:03 73 16 06/06/25 01:00 143/98 H 06/06/25 00:47 152/130 H 06/06/25 00:45 65 22 98 06/06/25 00:15 69 17 98 06/06/25 00:15 155/88 H 06/06/25 00:09 67 22 95 06/06/25 00:01 135/78 06/05/25 23:45 149/90 H 06/05/25 23:42 59 L 16 98 06/05/25 23:31 137/118 H 06/05/25 23:19 68 06/05/25 23:16 140/96 06/05/25 23:12 142/107 H 06/05/25 23:11 66 17 99 06/05/25 23:08 74 19 100 06/05/25 22:50 67 15 92 06/05/25 22:46 149/91 H 06/05/25 22:41 63 16 98 06/05/25 22:30 144/88 H 06/05/25 22:20 147/85 H 06/05/25 22:20 66 21 99 06/05/25 22:00 62 20 97 06/05/25 22:00 136/88 06/05/25 21:57 65 26 H 97 06/05/25 21:46 124/83 06/05/25 21:44 36.5 C 67 18 139/87 99 06/05/25 21:41 62 15 99 06/05/25 21:35 66 20 96 06/05/25 21:30 139/87 06/05/25 21:30 67 06/05/25 21:29 70 16 98 06/05/25 21:26 65 18 06/05/25 19:49 O2 Del Method O2 Flow Rate 06/06/25 06:30 06/06/25 06:00 06/06/25 06:00 06/06/25 05:42 06/06/25 05:09 06/06/25 05:00 06/06/25 04:57 06/06/25 04:30 06/06/25 04:00 06/06/25 03:30 06/06/25 03:00 06/06/25 03:00 06/06/25 03:00 06/06/25 02:42 06/06/25 02:00 06/06/25 01:51 06/06/25 01:39 06/06/25 01:03 06/06/25 01:00 06/06/25 00:47 06/06/25 00:45 06/06/25 00:15 06/06/25 00:15 06/06/25 00:09 06/06/25 00:01 06/05/25 23:45 06/05/25 23:42 06/05/25 23:31 06/05/25 23:19 06/05/25 23:16 06/05/25 23:12 06/05/25 23:11 06/05/25 23:08 06/05/25 22:50 06/05/25 22:46 06/05/25 22:41 06/05/25 22:30 06/05/25 22:20 06/05/25 22:20 06/05/25 22:00 06/05/25 22:00 06/05/25 21:57 06/05/25 21:46 06/05/25 21:44 Room Air 06/05/25 21:41 06/05/25 21:35 06/05/25 21:30 06/05/25 21:30 06/05/25 21:29 06/05/25 21:26 06/05/25 19:49 Nasal Cannula 2 PG Care Time/CCT Total # of Minutes Spent Total Time Spent with Patient: Total time spent is greater than 50% in coordination of care (as documented) at patient's floor/unit and/or counseling patient: Coding Level of Care Code 62739 SUB INP/OBS CARE 3/50MIN Diagnoses Type [address] elevation I21.4 Mixed hyperlipidemia E78.2 Hyperlipidemia type: mixed hyperlipidemia Paroxysmal atrial fibrillation I48.0 Leukocytosis D72.829 Leukocytosis type: unspecified (2) Hyperlipidemia Hyperlipidemia type: mixed hyperlipidemia Qualified Code(s): E78.2 - Mixed hyperlipidemia (4) Leukocytosis Leukocytosis type: unspecified Qualified Code(s): D72.829 - Elevated white blood cell count, unspecified
[2025-06-06 07:50] LABS: Hemoglobin A1C 5.7 % (4.5-5.6)
[2025-06-06] MEDS: CHOLECALCIFEROL 25 MCG (1000 UNITS) TAB PO SCH (08:26)
[2025-06-06] MEDS: ASPIRIN 81 MG ECTAB PO SCH (08:30)
[2025-06-06] MEDS: VERAPAMIL HCL 120 MG TABCR PO SCH (08:31)
[2025-06-06] MEDS: ATORVASTATIN 40 MG TAB PO SCH (08:31)
[2025-06-06 08:59] LABS: ANTI-Xa, UFH(UnfractionatedHep 0.78 IU/ml (0.3-0.7)
[2025-06-06] MEDS ORDERED: MAGNESIUM OXIDE 400 MG TAB PO SCH (09:00)
--- NOTE | 2025-06-06 10:11 | Billing Data ---
Date of Service June 06, 2025 Coding Level of Care Code 39098 SUB INP/OBS CARE
--- NOTE | 2025-06-06 10:49 | Electrocardiogram Report ---
Test Reason : Blood Pressure : */* mmHG Vent. Rate : 64 BPM Atrial Rate : 64 BPM P-R Int : 154 ms QRS Dur : 90 ms QT Int : 406 ms P-R-T Axes : -3 -10 -36 degrees QTcB Int : 418 ms Normal sinus rhythm Inferior infarct (cited on or before 04-Jun-2025) Abnormal ECG When compared with ECG of 04-Jun-2025 13:45, Premature ventricular complexes are no longer Present Confirmed by Marvin Frias ([id number]) on 06/06/2025 10:49:16 AM Referred By: REFERRED SELF Confirmed By: Marvin Frias
--- NOTE | 2025-06-06 10:50 | Electrocardiogram Report ---
Test Reason : Blood Pressure : */* mmHG Vent. Rate : 83 BPM Atrial Rate : 83 BPM P-R Int : 152 ms QRS Dur : 96 ms QT Int : 358 ms P-R-T Axes : 69 59 92 degrees QTcB Int : 420 ms Normal sinus rhythm Marked ST abnormality, possible inferolateral subendocardial injury Abnormal ECG When compared with ECG of 05-Jun-2025 18:22, (unconfirmed) ST now depressed in Inferior leads ST now depressed in Lateral leads Confirmed by Marvin Frias ([id number]) on 06/06/2025 10:49:54 AM Referred By: REFERRED SELF Confirmed By: Marvin Frias
--- NOTE | 2025-06-06 10:50 | Electrocardiogram Report ---
Test Reason : Blood Pressure : */* mmHG Vent. Rate : 62 BPM Atrial Rate : 62 BPM P-R Int : 152 ms QRS Dur : 94 ms QT Int : 402 ms P-R-T Axes : 68 54 60 degrees QTcB Int : 408 ms Normal sinus rhythm Normal ECG When compared with ECG of 05-Jun-2025 17:08, (unconfirmed) Criteria for Inferior infarct are no longer Present T wave inversion no longer evident in Inferior leads Confirmed by Marvin Frias ([id number]) on 06/06/2025 10:49:43 AM Referred By: REFERRED SELF Confirmed By: Marvin Frias
--- NOTE | 2025-06-06 10:51 | Electrocardiogram Report ---
Test Reason : Blood Pressure : */* mmHG Vent. Rate : 59 BPM Atrial Rate : 59 BPM P-R Int : 168 ms QRS Dur : 88 ms QT Int : 416 ms P-R-T Axes : 73 56 53 degrees QTcB Int : 411 ms Sinus bradycardia Otherwise normal ECG When compared with ECG of 05-Jun-2025 18:57, (unconfirmed) ST no longer depressed in Inferolateral leads Confirmed by Marvin Frias ([id number]) on 06/06/2025 10:50:51 AM Referred By: REFERRED SELF Confirmed By: Marvin Frias
--- NOTE | 2025-06-06 10:53 | XCELERA ---
[id number] \\[id number]
[2025-06-06] MEDS ORDERED: RIVAROXABAN 20 MG TAB PO SCH (16:30)
[2025-06-06] MEDS: HEPARIN (PORCINE) 1000 UNIT/ML 10 ML (CATH LAB USE ONLY) ONE (17:09)
[2025-06-06] MEDS: MIDAZOLAM HCL 1 MG/ML 2ML VIAL ONE (17:09)
[2025-06-06] MEDS: NITROGLYCERIN/D5W 100MCG/ML 20ML SYR ONE (17:09)
[2025-06-06] MEDS: IODIXANOL (VISIPAQUE) 320 MG/ML 100ML IV ONE (17:09)
[2025-06-06] MEDS: niCARdipine 2,000 MCG/20 ML SYR ONE (17:09)
[2025-06-06] MEDS: OPTIRAY 350 ONE (17:10)
[2025-06-06] MEDS: CLOPIDOGREL BISULFATE 300 MG TAB ONE (17:14)
--- NOTE | 2025-06-06 17:26 | Pre Anesthesia Assessment ---
Date of Service June 06, 2025 Pre Sedation Assessment Vital Signs Temp Pulse Pulse Resp BP BP Pulse Ox 06/06/25 14:31 52 L 18 113/65 95 06/06/25 11:24 97.5 F L 06/06/25 11:02 134/85 06/06/25 11:00 61 17 94 06/06/25 10:00 56 L 12 94 06/06/25 09:09 59 L 17 97 06/06/25 09:00 137/80 06/06/25 08:57 57 L 13 95 06/06/25 08:54 56 L 13 96 06/06/25 08:29 126/83 06/06/25 08:27 56 L 21 92 06/06/25 08:03 66 17 99 06/06/25 08:00 97.7 F 06/06/25 07:57 63 18 90 06/06/25 07:03 60 22 92 06/06/25 07:01 132/87 06/06/25 06:30 63 22 97 06/06/25 06:00 140/83 06/06/25 06:00 61 17 97 06/06/25 05:42 63 13 95 06/06/25 05:09 58 L 13 95 06/06/25 05:00 132/82 06/06/25 04:57 62 14 96 06/06/25 04:30 59 L 16 96 06/06/25 04:00 98.1 F 60 16 95 06/06/25 03:30 61 15 96 06/06/25 03:00 118/75 06/06/25 03:00 118/75 06/06/25 03:00 65 13 96 06/06/25 02:42 60 13 95 06/06/25 02:00 121/74 06/06/25 01:51 63 11 L 94 06/06/25 01:39 62 12 94 06/06/25 01:03 73 16 06/06/25 01:00 143/98 H 06/06/25 00:47 152/130 H 06/06/25 00:45 65 22 98 06/06/25 00:15 69 17 98 06/06/25 00:15 155/88 H 06/06/25 00:09 67 22 95 06/06/25 00:01 135/78 06/05/25 23:45 149/90 H 06/05/25 23:42 59 L 16 98 06/05/25 23:31 137/118 H 06/05/25 23:19 68 06/05/25 23:16 140/96 06/05/25 23:12 142/107 H 06/05/25 23:11 66 17 99 06/05/25 23:08 74 19 100 06/05/25 22:50 67 15 92 06/05/25 22:46 149/91 H 06/05/25 22:41 63 16 98 06/05/25 22:30 144/88 H 06/05/25 22:20 147/85 H 06/05/25 22:20 66 21 99 06/05/25 22:00 62 20 97 06/05/25 22:00 136/88 06/05/25 21:57 65 26 H 97 06/05/25 21:46 124/83 06/05/25 21:44 97.7 F 67 18 139/87 99 06/05/25 21:41 62 15 99 06/05/25 21:35 66 20 96 06/05/25 21:30 139/87 06/05/25 21:30 67 06/05/25 21:29 70 16 98 06/05/25 21:26 65 18 06/05/25 19:49 06/05/25 19:31 67 20 135/90 98 06/05/25 19:25 67 19 124/77 96 06/05/25 19:21 66 20 133/77 96 06/05/25 19:15 66 19 127/68 96 06/05/25 19:15 70 18 127/68 95 06/05/25 19:10 68 18 134/67 06/05/25 19:10 72 134/67 06/05/25 19:09 146/84 H 06/05/25 19:06 161/89 H 06/05/25 19:00 123/101 H O2 Del Method O2 Flow Rate 06/06/25 14:31 Room Air 06/06/25 11:24 06/06/25 11:02 06/06/25 11:00 06/06/25 10:00 06/06/25 09:09 06/06/25 09:00 06/06/25 08:57 06/06/25 08:54 06/06/25 08:29 06/06/25 08:27 06/06/25 08:03 06/06/25 08:00 06/06/25 07:57 06/06/25 07:03 06/06/25 07:01 06/06/25 06:30 06/06/25 06:00 06/06/25 06:00 06/06/25 05:42 06/06/25 05:09 06/06/25 05:00 06/06/25 04:57 06/06/25 04:30 06/06/25 04:00 06/06/25 03:30 06/06/25 03:00 06/06/25 03:00 06/06/25 03:00 06/06/25 02:42 06/06/25 02:00 06/06/25 01:51 06/06/25 01:39 06/06/25 01:03 06/06/25 01:00 06/06/25 00:47 06/06/25 00:45 06/06/25 00:15 06/06/25 00:15 06/06/25 00:09 06/06/25 00:01 06/05/25 23:45 06/05/25 23:42 06/05/25 23:31 06/05/25 23:19 06/05/25 23:16 06/05/25 23:12 06/05/25 23:11 06/05/25 23:08 06/05/25 22:50 06/05/25 22:46 06/05/25 22:41 06/05/25 22:30 06/05/25 22:20 06/05/25 22:20 06/05/25 22:00 06/05/25 22:00 06/05/25 21:57 06/05/25 21:46 06/05/25 21:44 Room Air 06/05/25 21:41 06/05/25 21:35 06/05/25 21:30 06/05/25 21:30 06/05/25 21:29 06/05/25 21:26 06/05/25 19:49 Nasal Cannula 2 06/05/25 19:31 Nasal Cannula 2 06/05/25 19:25 Nasal Cannula 2 06/05/25 19:21 Nasal Cannula 2 06/05/25 19:15 Nasal Cannula 2 06/05/25 19:15 Nasal Cannula 2 06/05/25 19:10 06/05/25 19:10 06/05/25 19:09 06/05/25 19:06 06/05/25 19:00 Cardiovascular + regular rate Respiratory + respiratory effort normal Pre-Sedation Airway Assessment Smoking Status: Former smoker Hx Sleep Apnea: No Short, Thick Neck: No Thyromental Distance: > or= 3.5 Finger Breadths Oral Cavity: + WNL Mallampati Class: III ASA: ASA3 NPO Status Date of Last Intake of Fluids: 06/05/25 Time of Last Intake of Fluids: 14:00 Date of Last Intake of Solid Food: 06/05/25 Time of Last Intake of Solid Foods: 14:00 Procedure Planning Contraindications for Sedation: none Current Medications Reviewed: Yes Notes The planned sedation has been discussed with the patient. Informed Consent was obtained. I have identified the patient, determined the appropriateness of sedation and have assessed the patient immediately prior to the procedure. All medicine(s) and interventions are by my order.
--- NOTE | 2025-06-06 17:41 | Cardiac Catheterization ---
[facility] Data: Product Ambassador Cardiac Status Clinical evaluation leading to the procedure CAD Presenation: Non STEMI Anginal Classification: CCS IV Diagnostic Physicians Name: Merlin Faust MD Closure Device Recommendations: PCI without planned CABG Cardiac Cath Procedure Full Procedure Date June 06, 2025 Pre-Procedure Diagnosis Pre-Procedure Diagnosis: CAD AUC Score AUC Score: 8 Post-Procedure Diagnosis Post-Procedure Diagnosis: Severe CAD, Successful PCI and Elevated Intracardiac Pressures Procedure(s) Performed Procedure(s) Performed: Coronary Angiography, Left Heart Cath and Drug Eluting Stent [employer] Monitor Merlin Faust MD Pullman Clerk(s) Sara Estimated Blood Loss Estimated Blood Loss: 25 Medication(s) Medication(s): Clopidogrel, Fentanyl, Heparin, Lidocaine 1%, Nicardipine, Nitroglycerin and Versed Summary of Findings Indication: Staged PCI of RCA. Post NSTEMI with PCI to ostial circumflex, proximal LAD 06/05/2025. Access: 6 Fr right radial artery under ultrasound guidance Catheters: JR4 guide, pigtail Findings: Left system not visualized on current study. For details of prior coronary findings and intervention please see cath report from 06/06/2025. RCA -medium caliber, dominant, proximal 30% stenosis. Mid segment stent widely patent. 90% latemid stenosis. Distal vessel without significant disease. Small PDA without disease. LVEDP -19 -- PCI -- Antithrombotic therapy: Heparin, clopidogrel Procedure: RCA cannulated with JR4 guide Pre-procedure flow COLTON 3 [place] blue wire passed across lesion into distal vessel Latemid RCA lesion predilated with 2.5 compliant balloon Dilated lesion stented with 3.0 x 28 mm Xience drug-eluting stent Stent post-dilated with 3.5 noncompliant balloon IC vasodilators administered for spasm Post procedure COLTON 3 flow, stent well expanded with minimal residual stenosis and no apparent cardiac complications. Arterial Closure: TR band Summary: 1. Successful PCI of mid RCA with single drug-eluting stent (3.0 x 28 mm Xience; postdilated with 3.5 NC) overlapping distal aspect of prior stent. Recommendations: To PCU for continued monitoring Loaded with additional 300 mg of clopidogrel in Product Ambassador Resume Xarelto tomorrow morning Triple therapy with Xarelto, clopidogrel and aspirin for 1 week. Dual therapy with Xarelto, clopidogrel for at least 1 year Continue statin, and ASCVD risk factor modification Hemodynamics Rest Ao:: 103/60/79 Final Ao: 120/62/84 LV: 121/20 Recommendations Recommendations: PCI without planned CABG Specimens Specimens: None Radiation Exposure (mGy) 647 Contrast (mls) 75 Anesthesia Moderate 8037-5300 Procedural Complication(s) None Disposition PCU I attest to the content of the Intraoperative Record and any orders documented therein. Any exceptions are noted below. [facility] Card Cath Procedure Codes Cardiac Catheterization Procedure 1: Cardiovascular Cath Procedures: 12183 Left Heart Cath (+/-LV) Moderate Sedation Procedure 1: Sedation/Anesthesia: 95714 Mod Sedation by the same physician;Init15 Min Child Age 5 & Up Procedure 2: Sedation/Anesthesia: 16888 Mod Sedation by the same physician; Ea [id number] Minutes Stenting Procedure 1: Cardiovascular Stent Procedures: 08295 Perc transcatheter placement of intracoronary stent(s), with ang PG Care Time/CCT Total # of Minutes Spent Total Time Spent with Patient: Total time spent is greater than 50% in coordination of care (as documented) at patient's floor/unit and/or counseling patient:
--- NOTE | 2025-06-06 17:46 | Cardiology Progress Note ---
Date of Service June 06, 2025 Assessment & Plan (1) CAD (coronary artery disease): Plan: Post PCI to culprit ostial circumflex and mid LAD Now post staged PCI to mid RCA 2. Preserved LV function 3. Mild mitral regurgitation. 4. Paroxysmal atrial fibrillationon Xarelto 5. DyslipidemiaLDL 62 6. Cluster headachesverapamil Doing well post staged PCI of RCA today. Will discontinue heparin drip Restart Xarelto 20 mg in a.m. Continue triple therapy with Xarelto, clopidogrel, aspirin for 1 week After 1 week transition to dual therapy with Xarelto, clopidogrel LDL at goal on current statin Continue current carvedilol ARB for blood pressure as needed Continue current PPI From a cardiac standpoint if stable overnight likely okay for discharge tomorrow. Admission and Anticipated Discharge Date Admission Date: June 05, 2025 Subjective No events overnight. Telemetry reviewedno significant ectopy Post PCI this afternoon. Procedure uncomplicated. Denies any chest pain after procedure. Review of Systems Review of Systems: All systems reviewed & are unremarkable except as noted in HPI & below Physical Exam Physical Exam: General: Comfortable HEENT: Sclerae anicteric Lungs: Clear to auscultation bilaterall Cardiac: Regular rate and rhythm, no murmurs. Vascular: TR band in place over right radial artery access site Abdomen: Soft, nontender Extremities: Well perfused, no peripheral edema Neuro: Nonfocal Psych: Alert orient x3, normal affect and mood Results & Data Vital Signs (Past 12 Hours) Vital Signs Temp Pulse Resp BP Pulse Ox 06/06/25 08:29 126/83 06/06/25 08:27 56 L 21 92 06/06/25 08:03 66 17 99 06/06/25 08:00 97.7 F 06/06/25 07:57 63 18 90 06/06/25 07:03 60 22 92 06/06/25 07:01 132/87 06/06/25 06:30 63 22 97 06/06/25 06:00 140/83 06/06/25 06:00 61 17 97 06/06/25 05:42 63 13 95 06/06/25 05:09 58 L 13 95 06/06/25 05:00 132/82 06/06/25 04:57 62 14 96 06/06/25 04:30 59 L 16 96 06/06/25 04:00 98.1 F 60 16 95 08/14/25 03:30 61 15 96 06/06/25 03:00 118/75 06/06/25 03:00 118/75 06/06/25 03:00 65 13 96 06/06/25 02:42 60 13 95 06/06/25 02:00 121/74 06/06/25 01:51 63 11 L 94 06/06/25 01:39 62 12 94 06/06/25 01:03 73 16 06/06/25 01:00 143/98 H 06/06/25 00:47 152/130 H 06/06/25 00:45 65 22 98 06/06/25 00:15 69 17 98 06/06/25 00:15 155/88 H 06/06/25 00:09 67 22 95 06/06/25 00:01 135/78 06/05/25 23:45 149/90 H 06/05/25 23:42 59 L 16 98 06/05/25 23:31 137/118 H 06/05/25 23:19 68 06/05/25 23:16 140/96 06/05/25 23:12 142/107 H 06/05/25 23:11 66 17 99 06/05/25 23:08 74 19 100 06/05/25 22:50 67 15 92 06/05/25 22:46 149/91 H PG Care Time/CCT Total # of Minutes Spent Total Time Spent with Patient: Total time spent is greater than 50% in coordination of care (as documented) at patient's floor/unit and/or counseling patient: Coding Level of Care Code 12933 SUB INP/OBS CARE 3/50MIN Diagnoses CAD (coronary artery disease) I25.10 Associated angina: without angina Coronary Disease-Associated Artery/Lesion type: unspecified vessel or lesion type [place] vs. transplanted heart: [place] heart (1) CAD (coronary artery disease) Associated angina: without angina Coronary Disease-Associated Artery/Lesion type: unspecified vessel or lesion type [place] vs. transplanted heart: [place] heart Qualified Code(s): I25.10 - Atherosclerotic heart disease of [place] coronary artery without angina pectoris
[2025-06-06] MEDS: LIDOCAINE 1% LOCAL 20 ML VIAL ONE (18:00)
[2025-06-06] MEDS ORDERED: Nursing to Pharmacy Communication SCH (19:00)
[2025-06-06] MEDS ORDERED: CLOPIDOGREL BISULFATE 75 MG TAB PO SCH (21:00)
[2025-06-07 02:28] VITALS: TEMP 98.2
[2025-06-07 05:07] LABS: Hematocrit (blood only) 44.0 % (42.0-52.0); Hemoglobin 15.5 g/dl (14.0-18.0); Immature Granulocytes # (auto) 0.27 K/uL (0.01-0.20); Immature Granulocytes % (auto) 1.8 %; Mean Corpuscular Hemoglobin 30.8 pg (25.0-34.0); Mean Corpuscular Volume 87.3 fL (80.0-100.0); Platelet Count 241 K/uL (130-400); RDW Standard Deviation 44.9 fL (36.4-46.3); Red Blood Count 5.04 M/uL (4.70-6.10); White Blood Count 14.84 K/ul (4.8-10.8)
[2025-06-07 05:23] LABS: Alanine Aminotransferase 13.0 U/L (7-52); Albumin Globulin Ratio 1.4 (0.9-2); Alkaline Phosphatase 47.0 U/L (34-104); Anion Gap 5.0 (3-11); Bilirubin,Total 0.8 mg/dl (0.2-1.0); Blood Urea Nitrogen 25.0 mg/dl (6-23); Calcium 8.7 mg/dl (8.6-10.3); Carbon Dioxide 25.0 mmol/L (21-32); Chloride 108.0 mmol/L (98-107); Creatinine Clr Calc Pharmacy 64.8 ml/min; Globulin 2.5 gm/dl (2.5-4.0); Glucose 98.0 mg/dl (70-99(Fasting)); Magnesium 2.2 mg/dl (1.7-2.4); Potassium 4.4 mmol/L (3.5-5.1); Sodium 138.0 mmol/L (136-145); Total Protein 6.0 gm/dl (6.0-8.3)
[2025-06-07 05:35] LABS: INR 1.0 (0.9-1.1); Partial Thromboplastin Time 26 Seconds (21-31); Prothrombin Time 10.9 Seconds (9.0-12.0)
--- NOTE | 2025-06-07 07:00 | Critical Care Progress Note ---
Date of Service June 07, 2025 Assessment & Plan (1) Paroxysmal atrial fibrillation: (2) CAD (coronary artery disease): (3) Type [address] elevation: (4) Leukocytosis: Plan Kaden is a 79-year-old male with PMH of paroxysmal atrial fibrillation on Xar elto, atrial fibrillation VR, chronic cluster headache, history of stented coronary arteries, myofascial pain syndrome of thoracic spine, cervical myofascial pain, hypertension, trigeminal neuralgia of right side of face, CAD, GERD, hypercholesterolemia, and restless leg syndrome. He was then taken to the [facility] x 2 at circumflex and LAD on 06/05 and CL x1 at RCA on 06/06. Pt is hemodynamically stable post procedures and overnight. Critial care is signing off. Neuro- No acute concerns CN, sensation and gross strength remains in tact Hx of anxiety-Continue alprazolam 0.25 mg p.o. changed daily to twice daily as needed Hx of cluster Headaches- continue verapamil. Can be treated with High dose O2 at 15L for 15-20 min per pt report Cardio- S/P CL at circumflex and LAD 06/05 and RCA on 06/06. Pt currently asymptomatic and hemodynamically stable Echocardiogram during cath revealed EF of 55%, with inferior lateral wall motion abnormality. Continue atorvastatin 40 mg p.o. every afternoon Continue carvedilol 3.125 mg p.o. BID, amlodipine 2.5 mg p.o. qd, and losartan 50mg p.o. qam. Continue aspirin 81mg qam, clopidogrel 75mg po qhs Resume Xarelto 20mg qd Respiratory- O2 sats are >92% on RA Will continue to monitor GI- No acute concerns Continue pantoprazole 40mg BID Ondansetron prn for nausea Renal/Electrolytes- Cr is 0.94, eGFR is 82.98 Electrolytes are stable Endo- A1c is 5.7 BSG prn No acute concerns Heme- Hbg is 15.5, hct 44.0 No acute concerns ID- WBC is 14.84, down trending, Slightly elevated due to recent R and L cath and CL x 3 placement Otherwise asymptomatic, No acute concerns for infection MSK- No acute concerns Dispo: ICU Diet: Heart healthy Code: Full DVT prophylaxis: Xarelto 20mg Admission and Anticipated Discharge Date Admission Date: June 05, 2025 Supervising Physician Co-Signing Physician Notes Dr. Maldonado was resident physician during care of patient. I separately evaluated patient for arciniega portions of the history and the exam. I was present during the critical portion of medical decision making, and I discussed the case with the resident. I generally agree with the findings and plan. Stable for downgrade out of ICU, critical care will sign off. Subjective No acute events overnight. This morning, pt reports he is feeling overall better than at admission. He c/o mild headache this morning, but resolved without meds. Pt is anxious to return home. He denies CP. SOB, abdominal pain, nausea/vomiting, fever/chills, dizziness/lightheadedness, dysuria, or numbness/tingling Review of Systems Review of Systems: As per HPI Physical Exam Physical Exam: Gen: The patient is awake, alert and oriented 3, well developed and well nourished, sitting up in bed, NAD HEENT: PERRL, EOMI, MMM. Neck: Supple. No JVD.Thyroid normal, trachea midline, no adenopathy. Heart: RRR, S1 and S2. No murmurs, rubs or gallops. Lungs: CTAB, no respiratory distress, no accessory muscle use. Abdomen: Normoactive bowel sounds and soft, nontender. Nondistended, no organomegaly. Extremities:No edema. Moving all 4 extremities independently. There are good distal pulses bilaterally. Skin: normal skin turgor, normal color, no rash. Bandage at distal right wrist, clean and dry. Neurologic: A & O x 3, CN II through XII grossly intact. Psychiatric:normal affect. Results & Data Results & Data Vital Signs (Past 12 Hours) Vital Signs Temp Pulse Resp BP Pulse Ox 06/07/25 06:30 114/68 06/07/25 06:27 58 L 16 95 06/07/25 06:03 57 L 14 111/66 94 06/07/25 06:00 111/66 06/07/25 05:45 58 L 14 93 06/07/25 05:30 126/80 06/07/25 05:24 58 L 15 93 06/07/25 05:00 61 21 94 06/07/25 04:09 68 17 94 06/07/25 04:00 114/71 06/07/25 03:54 59 L 14 94 06/07/25 03:30 114/76 06/07/25 03:27 55 L 13 95 06/07/25 03:21 55 L 16 94 06/07/25 03:00 125/87 06/07/25 02:57 55 L 16 96 06/07/25 02:30 116/72 06/07/25 02:27 57 L 14 94 06/07/25 02:00 64 23 96 06/07/25 02:00 56 L 06/07/25 01:30 118/76 06/07/25 01:12 56 L 15 93 06/07/25 00:30 94/61 L 06/07/25 00:27 36.8 C 06/07/25 00:12 54 L 18 95 06/07/25 00:06 55 L 16 94 06/07/25 00:00 93/56 L 06/06/25 23:57 54 L 19 94 06/06/25 23:30 55 L 13 100/58 L 95 06/06/25 23:00 57 L 19 93/59 L 94 06/06/25 22:33 58 L 17 94 06/06/25 22:30 106/59 L 06/06/25 22:18 57 L 17 93 06/06/25 22:06 56 L 21 106/71 93 06/06/25 21:51 56 L 19 94 06/06/25 21:30 115/69 06/06/25 21:15 53 L 18 94 06/06/25 21:03 61 12 112/72 95 06/06/25 20:42 57 L 16 96 06/06/25 20:30 121/71 06/06/25 20:27 57 L 18 95 06/06/25 20:00 57 L 18 117/73 95 06/06/25 19:44 36.6 C 59 L 06/06/25 19:30 57 L 14 120/80 95 06/06/25 19:09 59 L 22 96 06/06/25 19:00 121/80 Resident Activity Tracking Resident Involvement: Resident Care Provided Care Provided: Adult Hospital Medicine (2) CAD (coronary artery disease) Associated angina: without angina Coronary Disease-Associated Artery/Lesion type: unspecified vessel or lesion type [place] vs. transplanted heart: [place] heart Qualified Code(s): I25.10 - Atherosclerotic heart disease of [place] coronary artery without angina pectoris (4) Leukocytosis Leukocytosis type: unspecified Qualified Code(s): D72.829 - Elevated white blood cell count, unspecified
--- NOTE | 2025-06-07 08:06 | Hospitalist Progress Note ---
Date of Service June 07, 2025 Assessment & Plan (1) Type [address] elevation: (2) Hyperlipidemia: (3) Paroxysmal atrial fibrillation: (4) Leukocytosis: Plan In summary this is a 79-year-old male admitted for type I myocardial infarction without ST elevation who underwent PCI on the evening of 06/05 without complication #Type 1 Myocardial Infarction without STEMI // Hyperlipidemia // Hypertension // Paroxysmal atrial fibrillation Patient's initial discomfort began on 06/04, he was evaluated in the emergency department and then discharged home; subsequently on 06/05 the patient contacted the volunteer recruiter due to persistent similar symptomatology, they referred back to the emergency department found to have significant troponin elevation concerning for myocardial infarction; association with activity; prior episodes of similar pain; associated risk factors and established comorbidities include hyperlipidemia, hypertension, paroxysmal atrial fibrillation, coronary atherosclerotic disease with previous PCI and DCS; the patient's initial EKG was without evidence of any ischemic activity; troponin trend of 4866, 8538; XAVIER score 118; heparin gtt discontinued after staged catheterization on 06/06 - Anticipate discharge on 06/07 pending final evaluation by consulted services - interventional and diagnostic cardiology, as well as fiscal accountant consulted #Leukocytosis Noted to have an elevated white blood cell count of 22,000 on admission, subsequent measured 24,000 on 06/06; downtrending, likely reactive #Intercostal Neuralgia // 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 Chronic condition; complicates the patient's personal assessment of discomfort, determining if this is consequential of these conditions or "cardiac" pain; reviewed at bedside additional signs, symptoms, and findings that the patient can use to determine if the discomfort is primarily cardiac or noncardiac, however expressed the importance of notifying nursing staff of any significant change that could be concerning for cardiac distress as the patient would need to undergo more urgent catheterization Admission and Anticipated Discharge Date Admission Date: June 05, 2025 Anticipated date of discharge: 06/07/25 Subjective Mr. Iraheta Is a 79-year-old male whose active medical conditions include coronary artery disease, paroxysmal atrial fibrillation, hyperlipidemia, hypertension among other chronic medical conditions who was admitted to [facility] on 06/05 due to type I myocardial infarction without ST elevation, underwent urgent PCI intervention without complication. No acute overnight events; patient feels well this morning without concerns. Review of Systems Review of Systems: Remaining review of constitutional, pulmonary, cardiovascular, gastrointestinal, genitourinary, musculoskeletal, neurologic, and integumentary systems was unremarkable except for pertinent positive and negative findings noted in the HPI above. Physical Exam Physical Exam: General: Adult male in no acute distress Vital Signs: reviewed HEENT: atraumatic, noised normocephalic; pupils equally round reactive to light; extraocular muscles intact; mucous membranes moist Neck: no notable JVD nor hepatojugular reflux Pulmonary: symmetric chest wall excursion; clear to auscultation bilaterally Cardiovascular: regular rate and rhythm without murmurs, rubs, or gallops; S1 and S2 normal; bilateral radial and posterior tibial pulse 2+; right radial pressure bandage in place with palpable hematoma in the volar midline, nontender nor pulsatile; right Walter's test negative; no notable lower extremity edema Gastrointestinal: soft, nontender to palpation throughout all 4 quadrants Neurologic: CN II-XII grossly intact; no discernible focal weakness nor paresthesias Results & Data Results & Data Vital Signs (Past 12 Hours) Vital Signs Temp Pulse Resp BP Pulse Ox 06/07/25 07:09 60 06/07/25 06:30 114/68 06/07/25 06:27 58 L 16 95 06/07/25 06:03 57 L 14 111/66 94 06/07/25 06:00 111/66 06/07/25 05:45 58 L 14 93 06/07/25 05:30 126/80 06/07/25 05:24 58 L 15 93 06/07/25 05:00 61 21 94 06/07/25 04:09 68 17 94 06/07/25 04:00 114/71 06/07/25 03:54 59 L 14 94 06/07/25 03:30 114/76 06/07/25 03:27 55 L 13 95 06/07/25 03:21 55 L 16 94 06/07/25 03:00 125/87 06/07/25 02:57 55 L 16 96 06/07/25 02:30 116/72 06/07/25 02:27 57 L 14 94 06/07/25 02:00 64 23 96 06/07/25 02:00 56 L 06/07/25 01:30 118/76 06/07/25 01:12 56 L 15 93 06/07/25 00:30 94/61 L 06/07/25 00:27 36.8 C 06/07/25 00:12 54 L 18 95 06/07/25 00:06 55 L 16 94 06/07/25 00:00 93/56 L 06/06/25 23:57 54 L 19 94 06/06/25 23:30 55 L 13 100/58 L 95 06/06/25 23:00 57 L 19 93/59 L 94 06/06/25 22:33 58 L 17 94 06/06/25 22:30 106/59 L 06/06/25 22:18 57 L 17 93 06/06/25 22:06 56 L 21 106/71 93 06/06/25 21:51 56 L 19 94 06/06/25 21:30 115/69 06/06/25 21:15 53 L 18 94 06/06/25 21:03 61 12 112/72 95 06/06/25 20:42 57 L 16 96 06/06/25 20:30 121/71 06/06/25 20:27 57 L 18 95 PG Care Time/CCT Total # of Minutes Spent Total Time Spent with Patient: Total time spent is greater than 50% in coordination of care (as documented) at patient's floor/unit and/or counseling patient: Coding Level of Care Code 98522 SUB INP/OBS CARE 3/50MIN Diagnoses Type [address] elevation I21.4 Mixed hyperlipidemia E78.2 Hyperlipidemia type: mixed hyperlipidemia Paroxysmal atrial fibrillation I48.0 Leukocytosis D72.829 Leukocytosis type: unspecified (2) Hyperlipidemia Hyperlipidemia type: mixed hyperlipidemia Qualified Code(s): E78.2 - Mixed hyperlipidemia (4) Leukocytosis Leukocytosis type: unspecified Qualified Code(s): D72.829 - Elevated white blood cell count, unspecified
--- NOTE | 2025-06-07 09:01 | Billing Data ---
Date of Service June 07, 2025 Coding Level of Care Code 39545 SUB INP/OBS CARE
[2025-06-07] MEDS: LOSARTAN POTASSIUM 50 MG TAB PO SCH (09:08)
[2025-06-07] MEDS: CLOPIDOGREL BISULFATE 75 MG TAB PO SCH (09:08)
[2025-06-07] MEDS: RIVAROXABAN 20 MG TAB PO SCH (09:09)
[2025-06-07] MEDS: DOCUSATE SODIUM 100 MG CAP PO SCH (10:38)
[2025-06-07] MEDS: SENNA 8.6 MG TAB PO SCH (10:38)
[2025-06-07] MEDS: POLYETHYLENE (MIRALAX) 17 GM PACK PO SCH (10:38)
--- NOTE | 2025-06-07 11:26 | Electrocardiogram Report ---
Test Reason : Blood Pressure : */* mmHG Vent. Rate : 61 BPM Atrial Rate : 61 BPM P-R Int : 160 ms QRS Dur : 84 ms QT Int : 396 ms P-R-T Axes : 36 58 36 degrees QTcB Int : 398 ms Normal sinus rhythm Normal ECG When compared with ECG of 06-Jun-2025 06:34, No significant change was found Confirmed by Marvin Frias ([id number]) on 06/07/2025 11:26:32 AM Referred By: REFERRED SELF Confirmed By: Marvin Frias
--- NOTE | 2025-06-07 12:33 | Electrocardiogram Report ---
Test Reason : Blood Pressure : */* mmHG Vent. Rate : 51 BPM Atrial Rate : 51 BPM P-R Int : 172 ms QRS Dur : 82 ms QT Int : 438 ms P-R-T Axes : 51 49 41 degrees QTcB Int : 403 ms Sinus bradycardia Premature atrial complexes Otherwise normal ECG When compared with ECG of 06-Jun-2025 06:34, No significant change was found Confirmed by Marvin Frias ([id number]) on 06/07/2025 12:33:05 PM Referred By: REFERRED SELF Confirmed By: Marvin Frias
[2025-06-07 13:49] VITALS: BP 120/80
[2025-06-07 14:02] VITALS: PULSE 64; RESP 14; O2SAT 95
[2025-06-07] MEDS: MAGNESIUM CITRATE 296 ML/BTL PO SCH (14:14)
--- NOTE | 2025-06-07 14:51 | Cardiology Progress Note ---
Date of Service June 07, 2025 Assessment & Plan (1) CAD (coronary artery disease): Plan: -Admitted with a non-ST elevation OR. -Troponin peaked at 8538. -s/p PCI to the culprit ostial LCx, and PCI to the mid LAD, 06/05/2025. -s/p staged PCI to the mid RCA, June 06, 2025. -Continue triple therapy x 1 week with Xarelto, clopidogrel, and aspirin. -After 1 week, transition to dual therapy with Xarelto and clopidogrel. -Stable for hospital discharge. -Follow-up as scheduled June 11, 2025. (2) Hypertension: Plan: -Adequate control on regimen of carvedilol, losartan, and verapamil. (3) Hyperlipidemia: Plan: - Continue atorvastatin 40 mg daily. (4) Paroxysmal atrial fibrillation: Plan: - Continue rate control and long-term anticoagulation. Admission and Anticipated Discharge Date Admission Date: June 05, 2025 Subjective Mr Iraheta is resting comfortably in bed without complaints of chest pain or dyspnea. His is present at the bedside. Physical Exam Physical Exam: In general this is a well-developed well-nourished white male in no acute distress. HEENT exam is negative. Neck reveals normal carotid upstrokes without bruits. Jugular venous pressure is flat at 90. There is no thyromegaly. Cardiovascular exam reveals a regular rhythm with a normal S1 and S2. No S3, S4, or murmurs are noted. Lungs are clear without rales, rhonchi, or wheezes. Abdomen is soft without bruits. Extremities no edema dry dressing on the right wrist. No bruits. There is no peripheral edema. Results & Data Vital Signs (Past 12 Hours) Vital Signs Temp Pulse Pulse Resp BP BP Pulse Ox 06/07/25 13:59 36.8 C 64 14 120/80 95 06/07/25 13:30 120/80 06/07/25 13:24 67 24 94 06/07/25 13:06 68 22 91 06/07/25 13:00 116/74 06/07/25 12:54 66 24 94 06/07/25 12:30 108/72 06/07/25 12:21 66 17 95 06/07/25 12:00 130/78 06/07/25 12:00 68 97 06/07/25 11:30 121/86 06/07/25 11:30 68 95 06/07/25 11:00 61 94 06/07/25 10:30 117/82 06/07/25 10:09 64 95 06/07/25 10:00 69 96 06/07/25 09:30 128/82 06/07/25 09:03 68 94 06/07/25 09:00 126/80 06/07/25 08:54 63 93 06/07/25 08:30 140/86 06/07/25 08:30 66 94 06/07/25 08:09 64 93 06/07/25 07:31 117/78 06/07/25 07:21 66 93 06/07/25 07:09 60 06/07/25 07:03 65 100 06/07/25 07:01 141/90 H 06/07/25 06:51 59 L 14 96 06/07/25 06:36 59 L 19 95 06/07/25 06:30 114/68 06/07/25 06:27 58 L 16 95 06/07/25 06:03 57 L 14 111/66 94 06/07/25 06:00 111/66 06/07/25 05:45 58 L 14 93 06/07/25 05:30 126/80 06/07/25 05:24 58 L 15 93 06/07/25 05:00 61 21 94 06/07/25 04:09 68 17 94 06/07/25 04:00 114/71 06/07/25 03:54 59 L 14 94 06/07/25 03:30 114/76 06/07/25 03:27 55 L 13 95 06/07/25 03:21 55 L 16 94 06/07/25 03:00 125/87 06/07/25 02:57 55 L 16 96 O2 Del Method 06/07/25 13:59 06/07/25 13:30 06/07/25 13:24 06/07/25 13:06 06/07/25 13:00 06/07/25 12:54 06/07/25 12:30 06/07/25 12:21 06/07/25 12:00 06/07/25 12:00 06/07/25 11:30 06/07/25 11:30 06/07/25 11:00 06/07/25 10:30 06/07/25 10:09 06/07/25 10:00 06/07/25 09:30 06/07/25 09:03 Room Air 06/07/25 09:00 06/07/25 08:54 Room Air 06/07/25 08:30 06/07/25 08:30 06/07/25 08:09 06/07/25 07:31 06/07/25 07:21 06/07/25 07:09 06/07/25 07:03 06/07/25 07:01 06/07/25 06:51 06/07/25 06:36 06/07/25 06:30 06/07/25 06:27 06/07/25 06:03 06/07/25 06:00 06/07/25 05:45 06/07/25 05:30 06/07/25 05:24 06/07/25 05:00 06/07/25 04:09 06/07/25 04:00 06/07/25 03:54 06/07/25 03:30 06/07/25 03:27 06/07/25 03:21 06/07/25 03:00 06/07/25 02:57 Diagnostic Findings playground monitor is benign. PG Care Time/CCT Total # of Minutes Spent Total Time Spent with Patient: Total time spent is greater than 50% in coordination of care (as documented) at patient's floor/unit and/or counseling patient: Coding Level of Care Code 57487 SUB INP/OBS CARE 3/50MIN Diagnoses CAD (coronary artery disease) I25.10 Associated angina: without angina Coronary Disease-Associated Artery/Lesion type: unspecified vessel or lesion type [place] vs. transplanted heart: [place] heart Hypertension I10 Hypertension type: unspecified Mixed hyperlipidemia E78.2 Hyperlipidemia type: mixed hyperlipidemia Paroxysmal atrial fibrillation I48.0 (1) CAD (coronary artery disease) Associated angina: without angina Coronary Disease-Associated Artery/Lesion type: unspecified vessel or lesion type [place] vs. transplanted heart: [place] heart Qualified Code(s): I25.10 - Atherosclerotic heart disease of [place] coronary artery without angina pectoris (2) Hypertension Hypertension type: unspecified Qualified Code(s): I10 - Essential (primary) hypertension (3) Hyperlipidemia Hyperlipidemia type: mixed hyperlipidemia Qualified Code(s): E78.2 - Mixed hyperlipidemia
--- NOTE | 2025-06-08 10:54 | Discharge Summary ---
Discharge Summary Date of Service June 08, 2025 Principal Dx & Hospital Course #1 = Principal Diagnosis (1) Type [address] elevation: (2) Hyperlipidemia: (3) Paroxysmal atrial fibrillation: (4) Leukocytosis: Plan In summary this is a 79-year-old male admitted for type I myocardial infarction without ST elevation who underwent PCI on the evening of 06/05 without complication #Type 1 Myocardial Infarction without STEMI // Hyperlipidemia // Hypertension // Paroxysmal atrial fibrillation Patient's initial discomfort began on 06/04, he was evaluated in the emergency department and then discharged home; subsequently on 06/05 the patient contacted the ice cream server due to persistent similar symptomatology, they referred back to the emergency department found to have significant troponin elevation concerning for myocardial infarction; association with activity; prior episodes of similar pain; associated risk factors and established comorbidities include hyperlipidemia, hypertension, paroxysmal atrial fibrillation, coronary atherosclerotic disease with previous PCI and DCS; the patient's initial EKG was without evidence of any ischemic activity; troponin trend of 4866, 8538; XAVIER score 118; heparin gtt discontinued after staged catheterization on 06/06 - interventional and diagnostic cardiology, as well as cell installer consulted #Leukocytosis Noted to have an elevated white blood cell count of 22,000 on admission, subsequent measured 24,000 on 06/06; downtrending, likely reactive #Intercostal Neuralgia // 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 Chronic condition Admission HPI Per Admitting Provider The patient is a 79-year-old male with past medical history including paroxysmal atrial fibrillation on Xarelto, atrial fibrillation VR, chronic cluster headache, history of stented coronary arteries, myofascial pain syndrome of thoracic spine, cervical myofascial pain, hypertension, trigeminal neuralgia of right side of face, CAD, GERD, hypercholesterolemia, and restless leg syndrome.The patient initially presented to the emergency department on the evening of 06/04 with chest discomfort, had a workup performed without significant abnormalities, and was discharged to home to follow-up with outpatient PCP. Patient had recurrence of severe left-sided chest pain today, presented to the emergency department, was found to have elevated troponin of 7155.2, and EKG with nonspecific ST-T changes. Heart alert was called, and patient received the following by the inpatient service: Morphine 4 mg IV x 2, nitroglycerin sublingual 0.4 mg x 2, normal saline 1 L bolus, and Lopressor 2.5 mg IV. This combination of treatment, his symptoms did completely resolve. He was then taken to the [facility] by Dr. Merlin Faust. Discharge Exam General: Adult male in no acute distress Vital Signs: reviewed HEENT: atraumatic, noised normocephalic; pupils equally round reactive to light; extraocular muscles intact; mucous membranes moist Neck: no notable JVD nor hepatojugular reflux Pulmonary: symmetric chest wall excursion; clear to auscultation bilaterally Cardiovascular: regular rate and rhythm without murmurs, rubs, or gallops; S1 and S2 normal; bilateral radial and posterior tibial pulse 2+; right radial pressure bandage in place with palpable hematoma in the volar midline, nontender nor pulsatile; right Walter's test negative; no notable lower extremity edema Gastrointestinal: soft, nontender to palpation throughout all 4 quadrants Neurologic: CN II-XII grossly intact; no discernible focal weakness nor paresthesias Discharge Plan Discharge Items Patient Disposition: Home - Self-Care Reason For Visit: HEART ALERT, NSTEMI Discharge Diagnosis: Type 1 [place] without STEMI Condition on Discharge: Fair Activity: Per Instructions section Lifting: Wait until after follow-up appointment Bathing: No limitations Exercise/Sports: Wait until after follow-up appointment Weightbearing: Full weightbearing Non-emergency contact: Primary Care Provider and Radiologist Diagnostic Call non-emergency contact if: you have any medication questions, your symptoms worsen and your pain is worsening Follow-up/Referrals: Moiz Herrera CRNP [Primary Care Provider] - 06/12/25 8:20 am (Hospital follow up on June 12 at 8:20 am.) Daniel Chris MD [Physician] - 06/11/25 8:30 am (Hospital follow up on June 11 at 8:30 am.) Diet: Low Fat and Low Sodium (2gm) Fluids: 1800ml (7 cups) Ambulatory Orders: Renal Function Panel (Routine) Timeframe: 2 Weeks Location: Determined by Patient Ordered By: Daniel Hernandez Addtl Attending Provider Instructions: You were admitted to [facility] for a type I myocardial infarction without ST segment elevation With regard to your heart attack you underwent 2 separate cardiac catheterizations with a total of 3 drug-eluting stents placed. Your cardiology team recommends continuing Xarelto, Plavix, and aspirin for 1 week, thereafter continuing on the Xarelto and Plavix. Given your comorbid health conditions, and by cardiology recommendation, your amlodipine has been discontinued, with initiation of an alternative antihypertensive called losartan. Please assess her blood pressure 60 to 90 minutes after using the patient every day to ensure good control and chart to review with your PCP upon follow-up. The week of 06/16 recommend obtaining a renal function panel to assess your kidney function and tolerance of this medication. As we discussed during your hospitalization, to reduce the frequency of bleeding from your internal and external hemorrhoids, recommend starting MiraLAX one half capful in 8 ounces of noncarbonated nondairy fluid daily with adjustment by one half capful increase or decrease every 3 to 4 days based on yo ur bowel frequency and ease of passage. Thank you for choosing [facility] as your healthcare provider. Pending Studies at Discharge: No Stand-Alone Forms: My [facility] Medications and DC Order Prescriptions: New losartan 50 mg Tablet 50 mg PO QAM 30 Days Qty: 30 0RF Continued pantoprazole 40 mg tablet,delayed release (DR/EC) 40 mg PO QPM Qty: 90 1RF atorvastatin 40 mg tablet 40 mg PO QPM Qty: 90 3RF verapamil 120 mg capsule,ext rel. pellets 24 hr 120 mg PO DAILY 30 Days Qty: 30 2RF (DME) Oxygen Home Liters Per Minute See Rx Instructions .Route Qty: 1 0RF Rx Instructions: 100% oxygen for up to 25 minutes at 15L/min with a non-rebreather mask diclofenac sodium 3 % gel 1 applic topical BID PRN (Reason: Pain) nitroglycerin 0.4 mg tablet, sublingual 0.4 mg SL Q5M PRN (Reason: chest pain) Qty: 30 3RF Patient Comments: HAVE NEVER USED Emgality Syringe 300 mg/3 mL (100 mg/mL x 3) syringe 300 mg subcut .once a month Qty: 3 0RF acetaminophen [Tylenol Extra Strength] 500 mg Tablet 500 mg PO Q6H PRN (Reason: Pain) carvedilol 3.125 mg tablet 3.125 mg PO BID cholecalciferol (vitamin D3) [Vitamin D3] 50 mcg (2,000 unit) Tablet 50 mcg PO QAM magnesium oxide 400 mg magnesium Tablet 400 mg PO QAM Xarelto 20 mg tablet 20 mg PO QDD Patient Comments: qpm Rx Instructions: must administer with evening meal alprazolam 0.25 mg Tablet 0.25 mg PO DAILY PRN (Reason: Anxiety) Discontinued amlodipine 2.5 mg tablet 2.5 mg PO QPM prednisone 20 mg tablet 60 mg PO DAILY 4 Days Qty: 12 0RF No Action clopidogrel 75 mg tablet 75 mg PO DAILY Qty: 30 6RF Discharge Orders: Discharge Order (Routine); Ordered 06/07/25 Ordered By: Daniel Polanco/Other Patient Handouts: Heart Attack Angina Sx, Heart Attack Dc, Heart Attack: Back at Home Admission Data Admit Date/Time: 06/05/25 20:16 Attending Provider: Daniel Hernandez Admit Provider: Oli Zuñiga Primary Care Provider: Moiz Herrera Other Providers: Jose Luis Lopez; Daniel Chris; Oli Zuñiga Other Interventions: Discharge Summary Assessment (RN) Last Done: 06/07/25 13:59 Hospital Stay Data Consultations 06/05/25 18:40 Consult Cardiology Routine 06/05/25 18:41 ED Decision to Admit Stat 06/05/25 21:17 Consult Analytical Manager Routine 06/05/25 21:34 Consult Analytical Manager Routine Procedures Performed Operation Date: 06/06/25 14:30 Actual Procedures p Cineradiography w/Routine Exam - Merlin Faust MD p Drug Eluting Stent SGl Vessel - Merlin Faust MD s Cath, Left with Cors and Vent - Merlin Faust MD Diagnostic Imagining Performed 06/05/25 19:25 CL Cath Imgs for PACS use only Stat 06/05/25 20:34 CL IVUS Coronary Single Vessel Routine 06/06/25 06:40 CL IVUS Coronary Single Vessel Routine 06/06/25 14:30 CL Cath Imgs for PACS use only Routine Pending Results Patient Have Any Pending Studies at Discharge: No Discharge Instructions Given to Patient (Per Discharging Provider) You were admitted to [facility] for a type I myocardial infarction without ST segment elevation With regard to your heart attack you underwent 2 separate cardiac catheterizations with a total of 3 drug-eluting stents placed. Your cardiology team recommends continuing Xarelto, Plavix, and aspirin for 1 week, thereafter continuing on the Xarelto and Plavix. Given your comorbid health conditions, and by cardiology recommendation, your amlodipine has been discontinued, with initiation of an alternative antihypertensive called losartan. Please assess her blood pressure 60 to 90 minutes after using the patient every day to ensure good control and chart to review with your PCP upon follow-up. The week of 06/16 recommend obtaining a renal function panel to assess your kidney function and tolerance of this medication. As we discussed during your hospitalization, to reduce the frequency of bleeding from your internal and external hemorrhoids, recommend starting MiraLAX one half capful in 8 ounces of noncarbonated nondairy fluid daily with adjustment by one half capful increase or decrease every 3 to 4 days based on your bowel frequency and ease of passage. Thank you for choosing [facility] as your healthcare provider. Total Time Total Time Spent Total Time Spent (In Minutes): 45 Coding Level of Care Code 79540 INP/OBS DISCH >30 MIN Diagnoses Type [address] elevation I21.4 Mixed hyperlipidemia E78.2 Hyperlipidemia type: mixed hyperlipidemia Paroxysmal atrial fibrillation I48.0 Leukocytosis D72.829 Leukocytosis type: unspecified
== END 2025-06-07 17:37 | disposition home or self-care (01) | DRG 322 ==
LOC: ED 17:00 → OR 19:40 → 1E 20:16 → SUATTDRO 20:16